=== PATIENT | female | born 1955 | race Caucasian/White ===

== ENCOUNTER → 2019-05-05 10:19 | Outpatient (CLI) | payer BC, SELFPAY ==
--- NOTE | ~2019-05-05 | MR_ITS ---
EXAMINATION: MR cervical spine wo con DATE: 05/05/2019 10:57 INDICATION: Neck pain. Other symptoms and signs involving the musculoskeletal system. TECHNIQUE: Magnetic resonance imaging (MRI) of the cervical spine was performed without intravenous c ontrast. Sequences included sagittal T2-weighted FSE, sagittal STIR FSE, sagittal T1-weighted FSE, ax ial MERGE, and axial T2-weighted FSE. COMPARISON: Cervical spine radiographs 07/05/2017 FINDINGS: There is kyphosis of cervical spine. There is 3 mm retrolisthesis of C4 on C5 and 2 mm retr olisthesis of C5 on C6. Vertebral body heights are normal. There is severely decreased disc height at C4-C5 and C5-C6. The spinal cord signal intensity is normal. The following disc levels are specifica lly discussed: C2-C3: The disc does not extend beyond the endplate margin. There is no uncovertebral joint osteoarth ritis. There is mild bilateral facet joint osteoarthritis. There is no neural foraminal stenosis. The re is no central canal stenosis. C3-C4: The disc is bulging. There is mild left uncovertebral joint osteoarthritis. There is mild bila teral facet joint osteoarthritis. There is no neural foraminal stenosis. There is mild central canal stenosis. C4-C5: The disc is bulging. There is severe bilateral uncovertebral joint osteoarthritis. There is mi ld bilateral facet joint osteoarthritis. There is moderate bilateral neural foraminal stenosis. There is moderate central canal stenosis with ventral and dorsal indentation of the spinal cord. C5-C6: The disc is bulging. There is severe bilateral uncovertebral joint osteoarthritis. There is no facet joint osteoarthritis. There is moderate bilateral neural foraminal stenosis. There is mild cash tral canal stenosis. C6-C7: The disc does not extend beyond the endplate margin. There is mild bilateral uncovertebral karel nt osteoarthritis. There is moderate bilateral facet joint osteoarthritis. There is mild bilateral ne ural foraminal stenosis. There is no central canal stenosis. C7-T1: The disc does not extend beyond the endplate margin. There is no uncovertebral joint osteoarth ritis. There is mild bilateral facet joint osteoarthritis. There is no neural foraminal stenosis. The re is no central canal stenosis. IMPRESSION: 1. Severe cervical spondylosis. Reviewed, dictated and finalized at location A. KILN OPERATOR
== END ==
PROVIDERS: PCP Family Medicine; Visit Provider Family Medicine
DX: R29.898 Other symptoms and signs involving the musculoskeletal system (principal); M47.892 Other spondylosis, cervical region
CPT/HCPCS: 72141

== ENCOUNTER 2020-01-01 08:58 | Outpatient (CLI) | payer BC, SELFPAY ==
[2020-01-01 09:37] LABS: Alanine Aminotransferase 22 U/L (4-35); Albumin Level 3.8 g/dL (3.5-5.1); Alkaline Phosphatase 97 U/L (38-126); Anion Gap 6 mmol/L (8-16); Aspartate Amino Transferase 20 U/L (14-36); Bilirubin,Total 0.4 mg/dL (0.2-1.3); Blood Urea Nitrogen 15 mg/dL (7-17); Calcium 9.1 mg/dL (8.4-10.2); Carbon Dioxide 31 mmol/L (22-30); Chloride 105 mmol/L (98-107); Cholesterol 205 mg/dL (0-200); Estimated Glomerular Filt Rate > 60; Glucose 107 mg/dL (65-105); HDL Direct 31 mg/dL; Potassium 4.2 mmol/L (3.4-5.0); Sodium 142 mmol/L (137-145); Triglycerides 136 mg/dL (<150)
[2020-01-01 09:43] LABS: Hemoglobin A1C 5.9 % (<5.7)
[2020-01-01 09:48] LABS: LDL Cholesterol Direct 159 mg/dL
== END 2020-01-01 08:59 | disposition home or self-care (01) ==
PROVIDERS: PCP Family Medicine; Visit Provider Family Medicine
DX: R53.83 Other fatigue (principal); E11.9 Type 2 diabetes mellitus without complications; E78.2 Mixed hyperlipidemia; E03.9 Hypothyroidism, unspecified
CPT/HCPCS: 36415; 80053; 80061; 83036; 84443

== ENCOUNTER 2020-01-22 00:49 | Outpatient (CLI) | payer BC, SELFPAY ==
[2020-01-22 16:30] LABS: SARS-CoV-2 RNA PCR Negative
== END 2020-01-22 00:50 | disposition home or self-care (01) ==
LOC: ANHCOVIDDT 00:49
PROVIDERS: PCP Family Medicine; Visit Provider Internal Medicine Gastroenterology
DX: Z01.812 Encounter for preprocedural laboratory examination (principal); Z20.828 Contact with and (suspected) exposure to other viral communicable diseases
CPT/HCPCS: 87635; C9803; U0003

== ENCOUNTER 2020-01-24 00:52 | Day surgery (SDC) | payer BC, SELFPAY ==
[2020-01-17 13:15] VITALS: BMI 48.6
--- NOTE | 2020-01-17 14:35 | SUR.PREOP ---
pt called with info on upcoming colonoscopy. pt asked if her could accompany her for the procedure. made her aware that due to covid, strict visitor policy is in place and currently only allowing family member/visitors for specific circumstances that would help facilitate pt care. pt states she gets very anxious. reassured her regarding procedure, let her know that could wait in parking lot and be available if needed. she voiced understanding. kelly styles rn aware of pt request.
[2020-01-24 06:28] VITALS: BP 135/68; PULSE 79; RESP 23; O2SAT 98; BMI 47.7
[2020-01-24] MEDS: LACTATED RINGERS 1,000 ML 150 ML IV CONT (06:36)
--- NOTE | 2020-01-24 07:13 | WPDANESEPPF ---
Anes - Initial Pre Proc Eval Procedure: Operation Date: 01/24/20 08:00 Proposed Procedures p Screening Colonoscopy - Noam Crawford MD Date/Time: 01/24/20 07:13 Surgeon: Noam Crawford MD Pre Op Diagnosis: Hx Colon Polyps Patient Data Age: 64 Gender: F Height: 1.7 m Weight: 138.4 kg Last Vital Signs Pulse 79 01/24/20 06:28 Resp 23 H 01/24/20 06:28 BP 135/68 01/24/20 06:28 Pulse Ox 98 01/24/20 06:28 Allergies Allergy/AdvReac Type Severity Reaction Status Date / Time cephalexin Allergy Unknown Unknown Verified 01/24/20 06:26 codeine Allergy Unknown Unknown Verified 01/24/20 06:26 latex Allergy Unknown Unknown Verified 01/24/20 06:26 Penicillins Allergy Unknown Unknown Verified 01/24/20 06:26 aspirin AdvReac Mild Unknown Verified 01/24/20 06:26 Home Medications Medication Instructions Recorded Confirmed Type cyclobenzaprine 10 mg PO TID PRN #14 tablet 03/29/19 01/17/20 Rx diclofenac sodium 100 mg 100 mg PO DAILY #90 tablet 11/16/19 01/17/20 Rx tablet,extended release 24 hr pantoprazole 40 mg tablet,delayed 40 mg PO QAM #90 tablet 12/27/19 01/17/20 Rx release gabapentin 600 mg tablet 600 mg PO TID #240 tablet 01/23/20 Rx levothyroxine 100 mcg tablet 100 mcg PO DAILY #90 tablet 01/23/20 Rx Patient hx anesthesia problems: none Family hx anesthesia problems: none PMFSH Past Medical History Medical History (Updated 10/12/19 @ 22:28 by Peggy Higgins MD) BMI 45.0-49.9, adult Fibromyalgia Hypothyroidism Mixed hyperlipidemia Rheumatoid factor positive 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 Type 2 diabetes mellitus without complication, without long-term current use of insulin Vitamin D deficiency Surgical History Surgical History (Updated 01/24/20 @ 07:18 by Noam Crawford MD) History of total hysterectomy with bilateral salpingo-oophorectomy (BSO) Status post section Status post tonsillectomy and adenoidectomy Family History Family History Mother Diabetes mellitus Hypertension Family history of cardiovascular disease Grandparent Carcinoma of colon Family history of malignant neoplasm of esophagus Family history of malignant neoplasm of breast Father Hypertension Family history of cardiovascular disease Sibling Carcinoma of colon Social History Social History Smoking status: Former smoker Tobacco type: cigarettes Second hand tobacco smoke exposure: No Alcohol intake: never Substance use type: does not use Living arrangements: with family Gender identity (if verbalized by the patient): Female Spiritual care concerns: No Anes - Eval Final PreProcedure Day of Procedure 01/24/20 07:13 Patient weight: obese Heart: regular rate and rhythm Lungs: clear to auscultation and normal air movement Airway: Mallampati scale class II Neurological: alert and oriented Last oral intake: >/= 8 hours ASA classification: III Emergent: no Anesthetic plan: proceed Anesthesia type and monitoring: general GIVS Informed Consent: The patient's anesthetic plan and its attendant risks and benefits were discussed with the patient/family/POA. Questions were solicited and answers provided to the satisfaction of the patient/family/POA.
--- NOTE | 2020-01-24 07:14 | PM.HPGS ---
History of Present Illness History of Present Illness Consent: Risks, benefits, and alternatives have been discussed and questions answered. Patient agrees to proceed with procedure. Chief complaint: Hx Colon Polyps Narrative: Maria Eugenia Bridges is a 64 year old W female referred for screening colonoscopy secondary history of multiple colonic polyps removed 2 years ago and several these were serrated adenomas removed in piecemeal fashion. There is also family history of colon cancer in her sister diagnosed at 30's. No interval changes in patient's health. 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 Type 2 diabetes mellitus without complication, without long-term current use of insulin Vitamin D deficiency Surgical History Surgical History (Updated 01/24/20 @ 07:18 by Noam Crawford MD) History of total hysterectomy with bilateral salpingo-oophorectomy (BSO) Status post section Status post tonsillectomy and adenoidectomy Family History Family History Mother Diabetes mellitus Hypertension Family history of cardiovascular disease Grandparent Carcinoma of colon Family history of malignant neoplasm of esophagus Family history of malignant neoplasm of breast Father Hypertension Family history of cardiovascular disease Sibling Carcinoma of colon Social History Social History Smoking status: Former smoker Tobacco type: cigarettes Second hand tobacco smoke exposure: No Alcohol intake: never Substance use type: does not use Living arrangements: with family Gender identity (if verbalized by the patient): Female Spiritual care concerns: No Meds Home Medications and Allergies Home Medications Medication Instructions Recorded Confirmed Type cyclobenzaprine 10 mg PO TID PRN #14 tablet 03/29/19 01/17/20 Rx diclofenac sodium 100 mg 100 mg PO DAILY #90 tablet 11/16/19 01/17/20 Rx tablet,extended release 24 hr pantoprazole 40 mg tablet,delayed 40 mg PO QAM #90 tablet 12/27/19 01/17/20 Rx release gabapentin 600 mg tablet 600 mg PO TID #240 tablet 01/23/20 Rx levothyroxine 100 mcg tablet 100 mcg PO DAILY #90 tablet 01/23/20 Rx Allergies Allergy/AdvReac Type Severity Reaction Status Date / Time cephalexin Allergy Unknown Unknown Verified 01/24/20 06:26 codeine Allergy Unknown Unknown Verified 01/24/20 06:26 latex Allergy Unknown Unknown Verified 01/24/20 06:26 Penicillins Allergy Unknown Unknown Verified 01/24/20 06:26 aspirin AdvReac Mild Unknown Verified 01/24/20 06:26 Vital Signs Vital Signs - 24 hr 01/24/20 06:28 Pulse Rate 79 Respiratory Rate 23 H Blood Pressure 135/68 Pulse Oximetry 98 Exam Const: Orientation/consciousness: patient oriented x3 Resp: Auscultation: clear to auscultation bilaterally Cardio: Rate: regular rate Rhythm: regular rhythm Heart sounds: no murmurs GI: GI Palp: Yes Soft to palpation, No Tenderness to palpation present (GI), Yes No hepatosplenomegaly present and No Palpable mass present Auscultation: normal bowel sounds Neuro: General: patient oriented x3 and no focal motor deficits Extrem: General: no pedal edema Assessment and Plan Additional Plan screening colonoscopy in high risk patient with a history of serrated adenomas and family history of colon cancer
[2020-01-24 08:25] VITALS: BP 109/55; PULSE 72; RESP 20; O2SAT 97
[2020-01-24 08:35] VITALS: BP 114/58; PULSE 68; RESP 19; O2SAT 97
[2020-01-24 08:45] VITALS: BP 121/56; PULSE 67; RESP 18; O2SAT 96
== END 2020-01-24 08:59 | disposition home or self-care (01) ==
PROVIDERS: PCP Family Medicine; Visit Provider Internal Medicine Gastroenterology
PROC: 0DJD8ZZ Inspection of Lower Intestinal Tract, Via Natural or Artificial Opening Endoscopic (ICD-10-PCS; CPT 45378; principal; 2020-01-24 08:00)
DX: Z09 Encounter for follow-up examination after completed treatment for conditions other than malignant neoplasm (principal); K63.5 Polyp of colon; D17.5 Benign lipomatous neoplasm of intra-abdominal organs; K57.30 Diverticulosis of large intestine without perforation or abscess without bleeding; Z80.0 Family history of malignant neoplasm of digestive organs; E78.2 Mixed hyperlipidemia; E03.9 Hypothyroidism, unspecified; M79.7 Fibromyalgia; M06.9 Rheumatoid arthritis, unspecified; M47.812 Spondylosis without myelopathy or radiculopathy, cervical region; M47.814 Spondylosis without myelopathy or radiculopathy, thoracic region; E11.9 Type 2 diabetes mellitus without complications; E55.9 Vitamin D deficiency, unspecified; Z87.891 Personal history of nicotine dependence; E66.01 Morbid (severe) obesity due to excess calories; Z68.42 Body mass index [BMI] 45.0-49.9, adult
CPT/HCPCS: 45380; 88305; J2704; J7120

== ENCOUNTER 2020-03-19 12:29 | Outpatient (CLI) | payer BC, SELFPAY ==
--- NOTE | ~2020-03-19 | XR_ITS ---
EXAMINATION: XR thoracic spine 3V EXAM DATE: 03/19/2020 12:56 INDICATION: M54.14 - Radiculopathy, thoracic region. TECHNIQUE: Frontal and lateral projections of the thoracic spine as well as lateral swimmers projecti on of the upper thoracic spine for interpretation. Comparison is made to prior examination from 018. FINDINGS: Moderate to large sized mid lower thoracic disc disease and endplate osteophytes. The pedro tebral bodies are aligned in the AP dimension. Paraspinal soft tissue is unremarkable. There are no b rolly erosions identified. IMPRESSION: 1. Mild to moderate thoracic spondylosis. Reviewed, dictated and finalized at location B. DOG VENDOR
== END 2020-03-19 12:30 | disposition home or self-care (01) ==
PROVIDERS: PCP Family Medicine; Visit Provider Family Medicine
DX: M47.24 Other spondylosis with radiculopathy, thoracic region (principal)
CPT/HCPCS: 72072

== ENCOUNTER 2020-07-26 13:24 | Outpatient (CLI) | payer BC, SELFPAY ==
--- NOTE | ~2020-07-26 | US_ITS ---
EXAMINATION: US carotid duplex BI DATE: 07/26/2020 14:42 INDICATION: Transient cerebral ischemic attack TECHNIQUE: Grayscale, color Doppler, and pulsed Doppler images of the cervical carotid arteries were obtained. The degree of vessel stenosis is placed in one of the following categories: normal, <50%, 5 0-69%, >=70% but less than near-occlusion, near-occlusion, or total occlusion. Note that percent sten osis relative to normal distal artery lumen diameter is indirectly measured from velocity measurement s as described by Herber, et al. Radiology 2003; 229:340-346. Notes: Normal: Peak systolic velocity <125 centimeters/sec and no plaque <50%. Peak systolic velocity <125 ( EDV <40; ICA/CCA PSV ratio <2.0; used these factors only a tandem lesions or low cardiac output or co ntralateral disease) 50-69 %: PSV 125-230 (EDV 40-100; ratio 2-4) >= 70% but less than near occlusion: PSV greater than 230 (EDV > 100; ratio> 4.0) Near Occlusion: PSV that is variable; markedly narrowed lumen Occlusion: Absent flow on color/spectral Doppler and no lumen on lutz scale. COMPARISON: None. FINDINGS: RIGHT: The right common carotid artery (CCA) peak systolic velocity (PSV) is 83 cm/s. The right internal car otid artery (ICA) PSV is 55 cm/s. The right ICA end-diastolic velocity (EDV) is 17 cm/s. The right IC A/CCA PSV ratio is 0.7. The external carotid artery (ECA) PSV is 134 cm/s. There is antegrade flow in the right vertebral artery. LEFT: The left CCA PSV is 85 cm/s. The left ICA PSV is 52 cm/s. The left ICA EDV is 14 cm/s. The left ICA/C CA PSV ratio is 0.7. The ECA PSV is 84 cm/s. There is antegrade flow in the left vertebral artery. IMPRESSION: 1. Less than 50% stenosis in the right internal carotid artery by sonographic criteria. 2. Less than 50% stenosis in the left internal carotid artery by sonographic criteria. Reviewed, dictated and finalized at location B. IMPRESSION: 1. Less than 50% stenosis in the right internal carotid artery by sonographic c sonu. 2. Less than 50% stenosis in the left internal carotid artery by sonographic ita munoz.
--- NOTE | ~2020-07-26 | MR_ITS ---
EXAMINATION: MR brain/brain stem wo/w con DATE: 07/26/2020 14:25 INDICATION: Transient cerebral ischemic attack. Right facial numbness. Right extremity weakness. TECHNIQUE: Magnetic resonance imaging (MRI) of the brain and brainstem was performed without and with 20 mL MultiHance intravenous contrast. Sequences included sagittal and axial T1-weighted FSE, axial diffusion-weighted FS EPI, axial T2*-weighted GRE, axial T2-weighted FLAIR Propeller, and axial T2-we ighted Propeller. Postcontrast sequences included axial and coronal T1-weighted FSE. Apparent diffusi on coefficient (ADC) maps were created. COMPARISON: Head CT 06/16/2017 FINDINGS: There is no intracranial hemorrhage or abnormal intracranial mass lesion. There are scatter ed areas of nonspecific increased T2-weighted signal intensity in the cerebral white matter, which is within normal limits for the patient's age. In the posterior left frontal lobe, there is an 11 x 4 x 10 mm enhancing cortical lesion. No associated vasogenic edema. The ventricles are normal in size. T here is mucosal thickening in the paranasal sinuses. The orbits are normal. The mastoid air cells are normal. IMPRESSION: 1. Enhancing cortical lesion in posterior left frontal lobe, likely a subacute infarct. Consider brai n MRI without and with contrast in 3 months to exclude malignancy. Reviewed, dictated and finalized at location A. IMPRESSION: 1. Enhancing cortical lesion in posterior left frontal lobe, likely a subacute infarct. Consider brain MRI without and with contrast in 3 months to exclude ma lignancy.
[2020-07-26 13:57] LABS: Estimated Glomerular Filt Rate > 60
== END 2020-07-26 13:25 | disposition home or self-care (01) ==
PROVIDERS: PCP Family Medicine; Visit Provider Family Medicine
DX: G45.9 Transient cerebral ischemic attack, unspecified (principal)
CPT/HCPCS: 70553; 93880; A9577

== ENCOUNTER 2020-08-07 10:18 | Outpatient (CLI) | payer BC, SELFPAY ==
[2020-08-07 10:57] LABS: Chloride 105 mmol/L (98-107)
[2020-08-07 11:04] LABS: Anion Gap 2 mmol/L (8-16); Blood Urea Nitrogen 14 mg/dL (7-17); Calcium 9.6 mg/dL (8.4-10.2); Carbon Dioxide 33 mmol/L (22-30); Estimated Glomerular Filt Rate > 60; Glucose 106 mg/dL (65-105); Potassium 4.2 mmol/L (3.4-5.0); Sodium 140 mmol/L (137-145)
[2020-08-07 11:08] LABS: NT Pro B Type Natriuretic Pept 42 pg/mL (5-100)
== END 2020-08-07 10:19 | disposition home or self-care (01) ==
LOC: ANHLAB 10:26
PROVIDERS: PCP Family Medicine
DX: R06.02 Shortness of breath (principal); E03.9 Hypothyroidism, unspecified; I63.9 Cerebral infarction, unspecified; F17.200 Nicotine dependence, unspecified, uncomplicated; M79.7 Fibromyalgia; I10 Essential (primary) hypertension; R00.2 Palpitations; G47.33 Obstructive sleep apnea (adult) (pediatric); E66.9 Obesity, unspecified; F41.1 Generalized anxiety disorder
CPT/HCPCS: 36415; 80048; 83880

== ENCOUNTER → 2020-09-02 06:36 | Outpatient (CLI) | payer BC, SELFPAY ==
[2020-09-02 21:53] LABS: SARS-CoV-2 RNA PCR Negative
== END ==
PROVIDERS: PCP Family Medicine
DX: R68.89 Other general symptoms and signs (principal); Z20.822 Contact with and (suspected) exposure to COVID-19
CPT/HCPCS: C9803; U0003; U0005

== ENCOUNTER 2020-10-29 08:30 | Outpatient (CLI) | payer BC, SELFPAY ==
--- NOTE | ~2020-10-29 | MR_ITS ---
EXAMINATION: MR brain/brain stem wo/w con DATE: 10/29/2020 11:49 INDICATION: Lesion of left frontal lobe of the brain. Frontal head pressure. TECHNIQUE: Magnetic resonance imaging (MRI) of the brain and brainstem was performed without and with 20 mL MultiHance intravenous contrast. Sequences included sagittal and axial T1-weighted FSE, axial diffusion-weighted FS EPI, axial T2*-weighted GRE, axial T2-weighted FLAIR Propeller, and axial T2-we ighted Propeller. Postcontrast sequences included axial, sagittal, and coronal T1-weighted FSE. Appar ent diffusion coefficient (ADC) maps were created. COMPARISON: Brain MRI 07/26/2020, cervical spine MRI 05/05/2019, head CT 06/16/2017 FINDINGS: There is a 1.7 x 1.0 x 0.7 cm mass of increased T1-weighted signal intensity in the pituita ry, consistent with a Rathke cleft cyst. There is a small old infarct in posterior left frontal lobe. There are scattered areas of nonspecific increased T2-weighted signal intensity in the cerebral whit e matter, which is within normal limits for the patient's age. There is no acute ischemic infarct. Th e ventricles are normal in size. There is mild mucosal thickening in the ethmoid sinuses. The orbits are normal. The mastoid air cells are normal. IMPRESSION: 1. 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 2. 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 Reviewed, dictated and finalized at location A. IMPRESSION: 1. 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 2. 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
--- NOTE | 2020-10-29 08:44 | ECHO_ITS ---
Patient Info Name: Maria Eugenia Bridges Age: 64 years : 1955 Gender: Female Ht: 67 in Wt: 314 lbs BSA: 2.68 m2 HR: 71 bpm BP: 155 / 81 mmHg Exam Date: 10/29/2020 9:03 AM Exam Location: [facility] Patient Status: Outpatient Admit Date: 10/29/2020 Staff Ordering Physician: Peggy Hgigins MD Material Checker: Jose David Moses, JUAN, RT Attending Provider: Peggy Higgins MD Referring Physician: Ronaldo YIP; Exam Type: CA echo doppler color flow Study Info Indications G45.8 - Other transient cerebral ischemic attacks and related syndromes Complete two-dimensional, color flow and Doppler transthoracic echocardiogram is performed. Summary 1. Complete two-dimensional, color flow and Doppler transthoracic echocardiogram is performed. 2. Left ventricular chamber dimension is normal. 3. Left ventricular systolic function is normal, estimated at 55-60%. 4. There is mildly increased left ventricular wall thickness. 5. The left ventricular diastolic function is grade I diastolic dysfunction. 6. E/e' 11 is mildly elevated. 7. There is moderate aortic valve sclerosis. 8. There is mild mitral valve regurgitation. 9. There is trace pulmonic regurgitation. Left Ventricle E/e' 11 is mildly elevated. Left ventricular chamber dimension is normal. Left ventricular systolic function is normal, estimated at 55-60%. There is mildly increased left ventricular wall thickness. The left ventricular diastolic function is grade I diastolic dysfunction. Right Ventricle Right ventricular systolic function is normal and with normal TAPSE 2.6 cm. Right ventricular chamber dimension is normal. Left Atria Left atrial chamber dimension is normal. Right Atria Right atrial chamber dimension is normal. Aortic Valve The aortic valve is trileaflet. There is moderate aortic valve sclerosis. There is no aortic valve stenosis. There is no aortic valve regurgitation. Pulmonic Valve There is trace pulmonic regurgitation. Mitral Valve There is no mitral valve stenosis. There is mild mitral valve regurgitation. Tricuspid Valve There is no tricuspid valve regurgitation. Pericardium/Pleural There is no pericardial effusion. Inferior Vena Cava Normal inferior vena cava with >50% collapse upon inspiration consistent with normal right atrial pressure, 5 mmHg. Aorta The aortic root size at the sinus of Valsalva is normal. Left Ventricular Outflow Tract Name Value Normal LVOT 2D LVOT Diameter 2.1 cm LVOT Doppler LVOT Peak Gradient 8 mmHg LVOT Mean Gradient 4 mmHg LVOT VTI 28 cm LVOT VTI/AV VTI Ratio 0.7 LVOT Stroke Volume 100 ml LVOT CO 6.9 l/min LVOT CI 2.6 l/min/m2 Mitral Valve Name Value Normal MV Doppler
--- NOTE | 2020-10-29 10:06 | PCCARD ---
PT refused Definity. Ambrosio
[2020-10-29 11:27] LABS: Estimated Glomerular Filt Rate > 60
== END 2020-10-29 08:31 | disposition home or self-care (01) ==
PROVIDERS: PCP Family Medicine; Referring Provider Family Medicine; Visit Provider Family Medicine
DX: G45.8 Other transient cerebral ischemic attacks and related syndromes (principal)
CPT/HCPCS: 70553; 93306; A9577

== ENCOUNTER 2020-11-06 12:43 | Outpatient (CLI) | payer BC, SELFPAY ==
--- NOTE | ~2020-11-06 | MR_ITS ---
EXAMINATION: MRA brain wo con DATE: 11/06/2020 13:43 INDICATION: Left frontal lobe infarct. Pituitary mass. TECHNIQUE: Magnetic resonance angiography (MRA) of the brain was performed without intravenous contra st with T1-weighted SPGR by the 3D [id number] technique. Maximum intensity projection 3D-reconstr uctions were obtained. COMPARISON: Brain MRI 10/29/2020 FINDINGS: There is no significant stenosis of basilar artery or the posterior cerebral arteries. Right posterio r communicating artery is normal. There is no significant stenosis of the intracranial internal carot id arteries or anterior or middle cerebral arteries. Anterior communicating artery is normal. 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 There is a 1.8 cm mass of increased T1-weighted signal intensity in the pituitary. IMPRESSION: 1. 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 2. 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 Reviewed, dictated and finalized at location A. IMPRESSION: 1. 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 2. 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
== END 2020-11-06 12:44 | disposition home or self-care (01) ==
PROVIDERS: PCP Family Medicine
DX: I63.412 Cerebral infarction due to embolism of left middle cerebral artery (principal); I67.1 Cerebral aneurysm, nonruptured; E23.7 Disorder of pituitary gland, unspecified
CPT/HCPCS: 70544

== ENCOUNTER 2021-03-15 12:34 | Inpatient (IN) | payer BC, SELFPAY ==
[2021-03-15] VITALS (32 sets, daily range): BP systolic 107–157; BP diastolic 50–95; PULSE 72–93; RESP 16–34; TEMP 36.6–37.3; O2SAT 84–97; BMI 48.2
--- NOTE | ~2021-03-15 | XR_ITS ---
EXAMINATION: XR chest 1V portable DATE: 03/31/2021 09:10 INDICATION: Respiratory failure. COVID pneumonia. TECHNIQUE: frontal view of the chest was obtained. COMPARISON: Chest radiograph dated 03/30/2021 FINDINGS: Endotracheal tube tip 7.0 cm above the franchesca. Nasogastric tube extends below the left hemidiaphragm with distal tip collimated off the study. Right internal jugular central venous catheter with distal tip at the midsuperior vena cava. Persistent diffuse bilateral airspace opacities with air bronchograms left slightly worse than right. No pneumothorax or definitive pleural effusion. The cardiomediastinal silhouette is largely obscured . IMPRESSION: 1. Endotracheal tube tip 7.0 cm above the franchesca. Recommend advancement by 5 cm. 2. Persistent extensive bilateral lung disease consistent with COVID pneumonia. Reviewed, dictated and finalized at location B. GRADER IMPRESSION: 1. Endotracheal tube tip 7.0 cm above the franchesca. Recommend advancement by 5 cm . 2. Persistent extensive bilateral lung disease consistent with COVID pneumonia.
--- NOTE | ~2021-03-15 | XR_ITS ---
XR abdomen NG/feed tube insert DATE: 03/22/2021 09:38 INDICATION: Orogastric tube placement TECHNIQUE: Portable supine AP view COMPARISON: None FINDINGS: Orogastric tube tip is situated in the lower body of the stomach. ET tube is in satisfactory position. Right internal jugular central venous catheter tip is situated i n the superior vena cava near the superior cavoatrial junction. There are diffuse patchy bilateral pu lmonary infiltrates including air bronchograms in the left lower lobe. Heart size appears normal. IMPRESSION: Orogastric tube in stomach Reviewed, dictated and finalized at Location A. Reviewed, dictated and finalized at location A. LIFE SCIENCE PROFESSOR IMPRESSION: Orogastric tube in stomach
--- NOTE | ~2021-03-15 | XR_ITS ---
XR chest 1V portable DATE: 04/03/2021 09:34 INDICATION: Respiratory failure, Covid pneumonia TECHNIQUE: Portal AP chest on 04/03/2021 at 0910 hours COMPARISON: 04/02/2021 portable AP chest at 1002 hours FINDINGS: ET tube approximately 5.3 cm above franchesca. NG tube in stomach. Right internal jugular centr al venous catheter in superior vena cava. There is severe patchy bilateral consolidating pulmonary infiltrates with air bronchograms particular ly in the left upper, mid and lower lung zones and right lower lung. IMPRESSION: No significant change of extensive bilateral consolidating infiltrates since 04/02/2021 Reviewed, dictated and finalized at location A. [employer] PRODUCTION TEAM MEMBER IMPRESSION: No significant change of extensive bilateral consolidating infiltra talia since 04/02/2021
--- NOTE | ~2021-03-15 | XR_ITS ---
EXAMINATION: XR chest 1V portable EXAM DATE: 03/24/2021 08:59 INDICATION: Acute hypoxic respiratory failure, COVID pneumonia. TECHNIQUE: Portable AP frontal chest x-ray was obtained. Comparison is made to prior examination from 03/23/2021. FINDINGS: Endotracheal tube tip is 5-6 centimeters above the franchesca. There is a nasogastric tube see n with tip collimated off the study, but below the left hemidiaphragm. There is a right-sided IJ cent ral venous line. Diffuse bilateral airspace disease consistent with COVID pneumonia unchanged. There are no sizable p leural effusions. There is no pneumothorax suspected. Cardiac silhouette difficult to evaluate. The bones and soft tissues are unremarkable. There is no significant interval change compared to prior exam. IMPRESSION: 1. Line and tube(s) in position. 2. Stable airspace disease and other findings as above. Reviewed, dictated and finalized at location B. IVING DOCK CHECKER
--- NOTE | ~2021-03-15 | XR_ITS ---
EXAMINATION: XR chest 1V portable EXAM DATE: 03/26/2021 07:40 INDICATION: Acute hypoxic respiratory failure, COVID pneumonia. TECHNIQUE: Portable AP frontal chest x-ray was obtained. Comparison is made to prior examination from 03/25/2021, 03/24. FINDINGS: Endotracheal tube tip is about 5 centimeters above the franchesca. There is a nasogastric tube seen with tip collimated off the study, but below the left hemidiaphragm. There is a right-sided IJ central venous line. Extensive bilateral airspace disease consistent with COVID pneumonia. There are no sizable pleural e ffusions. There is no pneumothorax suspected. Cardiac silhouette difficult to evaluate. The bone s and soft tissues are unremarkable. Mild progression in the airspace disease. IMPRESSION: 1. Line and tube(s) in position. 2. Extensive COVID pneumonia, mild progression. Reviewed, dictated and finalized at location A. SROOM INSTRUCTIONAL AIDE
--- NOTE | ~2021-03-15 | XR_ITS ---
EXAMINATION: XR chest 1V portable DATE: 04/02/2021 10:16 INDICATION: Respiratory failure. COVID-19 pneumonia. TECHNIQUE: A single frontal view of the chest was obtained. COMPARISON: Chest single view 04/01/2021 FINDINGS: There are airspace opacities throughout the lungs bilaterally. No pleural effusion or pneum othorax. The heart size is obscured. The endotracheal tube tip is 4.0 cm above the franchesca. A right in ternal jugular central venous catheter is seen with tip at the superior cavoatrial junction. The naso gastric tube tip is beyond the inferior margin of the radiograph, but at least to the stomach. IMPRESSION: 1. Stable severe diffuse lung disease, consistent with COVID-19 pneumonia versus acute respiratory di stress syndrome (ARDS). Reviewed, dictated and finalized at location A. KER IMPRESSION: 1. Stable severe diffuse lung disease, consistent with COVID-19 pneumonia versu s acute respiratory distress syndrome (ARDS).
--- NOTE | ~2021-03-15 | XR_ITS ---
XR chest ET placement DATE: 03/22/2021 09:37 INDICATION: Endotracheal tube placement TECHNIQUE: Portable AP chest on 03/22/2021 at 0919 hours COMPARISON: 03/22/2021 AP chest at 0815 hours FINDINGS: There is interval placement of an endotracheal tube in satisfactory position approximately 3 cm above franchesca. A nasogastric tube is present, the distal portion not included in this examination . Right internal jugular central venous catheter tip is situated at the upper right atrium. Diffuse bilateral pulmonary infiltrates. IMPRESSION: ET tube in satisfactory position NG tube Right internal jugular central venous catheter at upper right atrium; no pneumothorax Persistent diffuse bilateral pulmonary infiltrates Reviewed, dictated and finalized at Location A. Reviewed, dictated and finalized at location A. NESS CONTINUITY MANAGEMENT DIRECTOR IMPRESSION: ET tube in satisfactory position NG tube Right internal jugular central venous catheter at upper right atrium; no pneumo thorax Persistent diffuse bilateral pulmonary infiltrates
--- NOTE | ~2021-03-15 | US_ITS ---
EXAMINATION: US renal BI DATE: 03/24/2021 12:58 INDICATION: Acute kidney injury. TECHNIQUE: Multiple ultrasound grayscale images of the kidneys were obtained. COMPARISON: CT abdomen and pelvis 04/13/18 FINDINGS: The right kidney measures 10.2 x 5.8 x 7.4 cm. The left kidney measures 13.4 x 5.8 x 6.7 cm. The kidn eys demonstrate normal parenchymal echogenicity. There is no hydronephrosis. The bladder is not well visualized. IMPRESSION: 1. Normal kidney sizes. No hydronephrosis. Reviewed, dictated and finalized at location A. E BAR TEAM MEMBER
--- NOTE | ~2021-03-15 | XR_ITS ---
XR chest 1V portable DATE: 03/22/2021 08:32 INDICATION: Increased shortness of breath. Covid pneumonia. TECHNIQUE: Portable AP chest on 03/22/2021 at 0815 hours COMPARISON: 03/17/2021 AP chest FINDINGS: This is a limited single portable AP view of the chest with rotation of the patient. There is cardiomegaly and pulmonary vascular congestion. There are diffuse bilateral pulmonary infiltrates, greater in the mid and particularly lower lung zones. Differential diagnosis includes pulmonary wagner a as well as pneumonia. IMPRESSION: Increased congestive changes and bilateral infiltrates since 03/17/2021, likely due to wo rsening congestive changes and pulmonary edema. Pneumonia is not excluded. Reviewed, dictated and finalized at location A. CTOR OCCUPATIONAL IMPRESSION: Increased congestive changes and bilateral infiltrates since 2020, likely due to worsening congestive changes and pulmonary edema. Pneumonia is not excluded.
--- NOTE | ~2021-03-15 | XR_ITS ---
EXAMINATION: XR chest 1V portable DATE: 03/29/2021 09:24 INDICATION: Respiratory failure. COVID-19 pneumonia. TECHNIQUE: A single frontal view of the chest was obtained. COMPARISON: Chest single view 03/27/2021 FINDINGS: There are airspace opacities throughout the lungs bilaterally. No pleural effusion or pneum othorax. The heart size is normal. The endotracheal tube tip is 5.5 cm above the franchesca. A right inte rnal jugular central venous catheter is seen with tip in the superior vena cava. The nasogastric tube tip is beyond the inferior margin of the radiograph, but at least to the stomach. IMPRESSION: 1. Diffuse lung disease, likely stable given differences in technique, consistent with pneumonia vers us acute respiratory distress syndrome (ARDS). Reviewed, dictated and finalized at location A. CTOR [facility] IMPRESSION: 1. Diffuse lung disease, likely stable given differences in technique, consiste nt with pneumonia versus acute respiratory distress syndrome (ARDS).
--- NOTE | ~2021-03-15 | XR_ITS ---
EXAMINATION: XR chest 1V portable EXAM DATE: 03/30/2021 10:38 INDICATION: Respiratory failure, COVID pneumonia TECHNIQUE: Portable AP frontal chest x-ray was obtained. Comparison is made to prior examination from 03/29/2021. FINDINGS: Endotracheal tube, nasogastric tube are in position. There is a right IJ venous line also in position. Extensive bilateral airspace disease consistent with COVID pneumonia. There are no sizable pleural e ffusions. There is no pneumothorax suspected. The cardiomediastinal silhouette is prominent but m agnified on this AP technique. There is no significant interval change compared to prior exam. IMPRESSION: 1. Line and tube(s) in position. 2. Extensive COVID pneumonia unchanged. Reviewed, dictated and finalized at location A. ATING ROOM ORDERLY
--- NOTE | ~2021-03-15 | XR_ITS ---
XR chest 1V portable DATE: 03/21/2021 09:04 INDICATION: Covid pneumonia TECHNIQUE: Portable AP chest on 03/21/2021 at 0857 hours COMPARISON: 03/20/2021 portable AP chest at 1018 hours FINDINGS: There are patchy infiltrates in the mid and lower lung zones, right greater than left, rela tively stable since 03/20/2021. No pleural effusion or pneumothorax. Aortic arch calcification. IMPRESSION: Bilateral pulmonary infiltrates, stable since 03/20/2021 Reviewed, dictated and finalized at location A. ON STAMPER
--- NOTE | ~2021-03-15 | XR_ITS ---
XR chest 1V portable 03/18/2021 11:00 Indication: Pneumonia. Procedure: AP portable chest Comparison: Comparison to multiple prior studies sequentially, with oldest reviewed study dated 06/2016. Findings: There is improving diffuse bilateral airspace disease, particularly on the left. No signifi cant effusion or pneumothorax. Stable cardiomediastinal silhouette. Impression: 1: Bilateral airspace disease, consistent with pneumonia, with improvement since prior examination. Reviewed, dictated and finalized at location A. GRAPHIC DESIGNER Impression: 1: Bilateral airspace disease, consistent with pneumonia, with improvement sinc e prior examination.
--- NOTE | ~2021-03-15 | XR_ITS ---
EXAMINATION: XR chest 1V portable DATE: 03/25/2021 08:51 INDICATION: Acute hypoxemic respiratory failure. COVID pneumonia. TECHNIQUE: frontal view of the chest was obtained. COMPARISON: Chest radiograph dated 03/24/2021 FINDINGS: Endotracheal tube tip 5.2 cm above the franchesca. Nasogastric tube extends below the left hemidiaphragm with distal tip collimated off the study. Right internal jugular central venous catheter with distal tip in the midsuperior vena cava. Hazy airspace opacities throughout both lungs without significant interval change accounting for some increased rightward rotation of the patient. No pneumothorax or definitive pleural effusion. The car diac silhouette is largely obscured but does not appear enlarged. IMPRESSION: 1. No significant change in diffuse bilateral airspace opacities consistent with pneumonia. Reviewed, dictated and finalized at location A. CHOOL HEAD TEACHER IMPRESSION: 1. No significant change in diffuse bilateral airspace opacities consistent wit h pneumonia.
--- NOTE | ~2021-03-15 | XR_ITS ---
EXAMINATION: XR chest 1V portable DATE: 03/16/2021 11:56 INDICATION: Hypoxia. TECHNIQUE: A single frontal view of the chest was obtained. COMPARISON: Chest single view 03/15/2021 FINDINGS: There are patchy airspace opacities throughout the lungs bilaterally. No pleural effusion o r pneumothorax. The heart size is normal. IMPRESSION: 1. Stable diffuse lung disease, consistent with COVID-19 pneumonia. Reviewed, dictated and finalized at location A. MANAGER
--- NOTE | ~2021-03-15 | XR_ITS ---
EXAMINATION: XR chest 1V portable EXAM DATE: 03/27/2021 07:58 INDICATION: Acute hypoxic respiratory failure, COVID pneumonia. TECHNIQUE: Portable AP frontal chest x-ray was obtained. Comparison is made to prior examination from 03/26/2021. FINDINGS: Endotracheal tube tip is about 5 centimeters above the franchesca. There is a nasogastric tub e seen with tip collimated off the study, but below the left hemidiaphragm. There is a right-sided IJ central venous line. Extensive bilateral airspace disease consistent with COVID pneumonia. There are no sizable pleural e ffusions. There is no pneumothorax suspected. Cardiac silhouette difficult to evaluate. The bone s and soft tissues are unremarkable. There is no significant interval change. IMPRESSION: 1. Line and tube(s) in position. 2. Extensive COVID pneumonia. Reviewed, dictated and finalized at location A. AINABILITY COACH
--- NOTE | ~2021-03-15 | CT_ITS ---
EXAMINATION: CTA chest PE protocol DATE: 03/15/2021 15:31 ENTEROSTOMAL THERAPY NURSE INDICATION: Positive d-dimer. TECHNIQUE: Computed tomographic angiography (CTA) of the chest was performed with 100 mL Omnipaque-35 0 intravenous contrast. The dose-length product was 1110.73 mGy-cm. Maximum intensity projection 3D-r econstructions of the aorta and other arteries were constructed by the technologist on a separate wor kstation. COMPARISON: Chest dated 03/15/2021. FINDINGS: [The is technically limited for evaluation of subsegmental pulmonary arteries. No large cash tral pulmonary embolism. There is atherosclerosis of the aorta and coronary arteries. Heart size is n ormal. No significant pleural or pericardial effusion. There is extensive patchy groundglass opacific ation throughout both lungs, consistent with pneumonia. IMPRESSION: 1. Extensive bilateral groundglass opacification in both lungs, consistent with widespread pneumonia. 2: No large central pulmonary embolism. Limited evaluation of peripheral pulmonary arteries. Moderate thoracic spondylosis. Reviewed, dictated and finalized at location A. ROSTOMAL THERAPY NURSE IMPRESSION: 1. Extensive bilateral groundglass opacification in both lungs, consistent with widespread pneumonia. 2: No large central pulmonary embolism. Limited evaluation of peripheral pulmon arsenio arteries. Moderate thoracic spondylosis.
--- NOTE | ~2021-03-15 | XR_ITS ---
EXAMINATION: XR chest 1V portable DATE: 03/20/2021 10:22 INDICATION: Pneumonia. TECHNIQUE: A single frontal view of the chest was obtained. COMPARISON: Chest single view 03/18/2021, chest CT 03/15/2021 FINDINGS: There is volume loss of right hemithorax. There are airspace opacities in all lung zones bi laterally, right worse than left. No pleural effusion or pneumothorax. The heart size is normal. IMPRESSION: 1. Diffuse lung disease with worsening on the right, consistent with COVID-19 pneumonia. . Reviewed, dictated and finalized at location B. K HELPER IMPRESSION: 1. Diffuse lung disease with worsening on the right, consistent with COVID-19 p neumonia. .
--- NOTE | ~2021-03-15 | XR_ITS ---
XR chest 1V portable 03/17/2021 09:10 Indication: Covid pneumonia Procedure: AP portable chest Comparison: 03/16/2021 Findings: There is diffuse bilateral airspace disease, consistent with pneumonia. No pleural effusion or pneumothorax. No acute osseous abnormality. Impression: 1: Persistent diffuse bilateral airspace disease, compatible with pneumonia. Reviewed, dictated and finalized at location A. AL TUBE WINDER Impression: 1: Persistent diffuse bilateral airspace disease, compatible with pneumonia.
--- NOTE | ~2021-03-15 | XR_ITS ---
XR chest 1V portable DATE: 03/23/2021 10:35 INDICATION: Acute hypoxic respiratory failure. Covid pneumonia. TECHNIQUE: Portable upright AP chest on 03/23/2021 at 1018 hours COMPARISON: 03/22/2021 portable AP chest at 0919 hours FINDINGS: There are diffuse bilateral pulmonary infiltrates, with moderate improvement on the right s ara 03/22/2021. Normal heart size. No pleural effusion or pneumothorax is evident ET tube is 5.5 cm above franchesca. NG tube is noted passing toward the stomach, distal portion not inclu ded. Right internal jugular central venous catheter overlying superior vena cava. IMPRESSION: Diffuse bilateral pulmonary infiltrates, moderately improved on the right since 1 Reviewed, dictated and finalized at location A. ULAR OFFICER IMPRESSION: Diffuse bilateral pulmonary infiltrates, moderately improved on the right since 03/22/2021
--- NOTE | ~2021-03-15 | XR_ITS ---
EXAMINATION: XR chest 1V portable DATE: 04/01/2021 09:44 INDICATION: Respiratory failure. COVID-19 pneumonia. TECHNIQUE: A single frontal view of the chest was obtained. COMPARISON: Chest single view 03/31/2021 FINDINGS: There are airspace opacities in all lung zones bilaterally. No pleural effusion or pneumoth orax. The heart size is normal. The endotracheal tube tip is 4.0 cm above the franchesca. A right interna l jugular central venous catheter is seen with tip in the superior vena cava. IMPRESSION: 1. Stable severe diffuse lung disease, consistent with COVID-19 pneumonia versus acute respiratory di stress syndrome (ARDS). Reviewed, dictated and finalized at location A. SPORTER DRIVER IMPRESSION: 1. Stable severe diffuse lung disease, consistent with COVID-19 pneumonia versu s acute respiratory distress syndrome (ARDS).
--- NOTE | ~2021-03-15 | XR_ITS ---
XR chest 1V portable 03/15/2021 14:15 Indication: Covid Infection Procedure: AP portable chest Comparison: 12/30/2016 Findings: There is extensive patchy bilateral airspace disease, consistent with pneumonia. Heart size normal. No pleural effusion or pneumothorax. No acute osseous abnormality. Impression: 1: Extensive bilateral airspace disease, compatible with pneumonia. Reviewed, dictated and finalized at location A. RATOR REPAIRER Impression: 1: Extensive bilateral airspace disease, compatible with pneumonia.
--- NOTE | 2021-03-15 13:38 | ED.GENADULT ---
HPI - General Adult General Chief complaint: Weakness Stated complaint: nausea/ covid+ Time Seen by Provider: 03/15/21 13:23 History of Present Illness HPI narrative: 65-year-old female with history of diabetes and arthritis presents to the emergency department for evaluation of Covid symptoms for approximately 1 week. Patient states she tested positive approximately 10 days ago. Patient states on days 1 through 5 she was on a course of steroids. Patient does report intractable fever and intractable nausea without vomiting. Patient has been treating the symptoms with Benadryl and Mylanta without success. Patient reports decreased p.o. intake. Patient denies any chest pain or shortness of breath. Patient is not on oxygen at home. Upon arrival to the emerge department patient was 82% on room air. Related Data Home Medications Medication Instructions Recorded Confirmed aspirin 325 mg tablet 325 mg PO DAILY 07/18/20 11/20/20 Allergies Allergy/AdvReac Type Severity Reaction Status Date / Time cephalexin Allergy Unknown Unknown Verified 03/15/21 13:28 codeine Allergy Unknown Unknown Verified 03/15/21 13:28 latex Allergy Unknown Unknown Verified 03/15/21 13:28 Penicillins Allergy Unknown Unknown Verified 03/15/21 13:28 Review of Systems Review of Systems: CONSTITUTIONAL: Reports fever EYES: Denies visual changes, redness, or discharge. ENT: Denies rhinorrhea, congestion, sore throat, or otalgia. CARDIOVASCULAR: Denies chest pain, palpitations, or edema. RESPIRATORY: Denies feeling short of breath.. GASTROINTESTINAL: Denies abdominal pain but does report nausea without vomiting GENITOURINARY: Denies dysuria or hematuria. SKIN: Denies rash or itching. MUSCULOSKELETAL: Denies back pain, joint pain, or myalgia. NEUROLOGIC: Denies headache, numbness, or weakness. PSYCHIATRIC: Denies anxiety or depression. 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 TIA (transient ischemic attack) Type 2 diabetes mellitus without complication, without long-term current use of insulin Vitamin D deficiency Surgical History Surgical History (Reviewed 11/20/20 @ 11:55 by Emily Serna [facility]) History of total hysterectomy with bilateral salpingo-oophorectomy (BSO) Status post section Status post tonsillectomy and adenoidectomy Family History Family History (Reviewed 11/20/20 @ 11:55 by Emily Serna [facility]) Mother Diabetes mellitus Hypertension Family history of cardiovascular disease Grandparent Carcinoma of colon Family history of malignant neoplasm of esophagus Family history of malignant neoplasm of breast Father Hypertension Family history of cardiovascular disease Sibling Carcinoma of colon Social History Social History (Reviewed 11/20/20 @ 11:55 by Emily Serna [facility]) Tobacco type: cigarettes Second hand tobacco smoke exposure: No Alcohol intake: never Substance use type: does not use Gender identity (if verbalized by the patient): Female Spiritual care concerns: No Exam Narrative: APPEARANCE: Well appearing, no pain in distress, well-nourished. Head normocephalic atraumtaic. EYES: PERRLA/EOMI, conjunctivae very clear. NECK: Supple. No adenopathy, no masses. RESPIRATORY: Airway patent, respirations nonlabored. Clear to auscultation bilaterally, no rales, rhonchi, wheezing. CARDIOVASCULAR: Regular rate and rhythm without murmurs rubs or gallops. ABDOMINAL: Soft, nontender, nondistended, no hepatosplenomegally MUSCULOSKELETAl: Moves all extremities. Strength/ROM intact, bilateral +1 edema, No calf tenderness. NEURO: Alert. Cranial nerves II through XI
--- NOTE | 2021-03-15 13:59 | ECG_ITS ---
Measurements Intervals [place] Rate: 89 P: 39 MD: 154 QRS: -54 QRSD: 120 T: 76 QT: 373 QTc: 454 Interpretive Statements SINUS RHYTHM LEFT ANTERIOR FASCICULAR BLOCK BORDERLINE ST-T WAVE ABNORMALITY- HIGH LATERAL LEADS BASELINE ARTIFACT- I, II, III, AVR, AVL, AVF, V1-V6 ABNORMAL ECG Electronically Signed On 03-15-2021 17:04:30 PAGEANT DIRECTOR by Favio Moctezuma D.O.
[2021-03-15] MEDS: ACETAMINOPHEN 500 MG TABLET 1000 MG PO (14:01)
[2021-03-15] MEDS: ONDANSETRON INJ 4 MG/2 ML VIAL IV PUSH (14:01)
[2021-03-15 14:14] LABS: Basophils Percent Auto 0.3 % (0.2-1.2); Hematocrit 45.4 % (37.0-47.0); Hemoglobin 14.8 g/dL (12.0-15.0); Immature Granulocyte Absolute 0.02 K/mm3 (0.00-0.031); Immature Granulocyte Percent A 0.7 % (0-0.5); Immature Platelet Fraction Pct 3.8 % (0.9-11.2); Lymphocytes Absolute Auto 0.71 K/mm3 (0.9-3.2); Lymphocytes Percent Auto 24.4 % (18.3-44.2); Mean Corpuscular HGB Conc 32.6 g/dl (32-36); Mean Corpuscular Hemoglobin 28.7 pg (26-34); Mean Platelet Volume 10.7 fl (7.4-10.4); Monocytes Absolute Auto 0.1 K/mm3 (0.1-0.6); Monocytes Percent Auto 4.8 % (2.6-8.5); Neutrophils Percent Auto 69.8 % (45.5-73.1); Platelet Count Result 140 k/mm3 (150-375); Red Blood Count 5.16 M/mm3 (4.2-5.4); Red Cell Distribution Width 14.8 % (11.5-14.5); White Blood Count 2.9 K/mm3 (4.5-10.0)
[2021-03-15] MEDS: DEXAMETHASONE 2 MG TABLET 6 MG PO (14:24)
[2021-03-15 14:26] LABS: D Dimer 0.64 ug/mL (<0.48)
[2021-03-15 14:34] LABS: Alanine Aminotransferase 29 U/L (4-35); Albumin Level 3.9 g/dL (3.5-5.1); Alkaline Phosphatase 91 U/L (38-126); Anion Gap 8 mmol/L (8-16); Aspartate Amino Transferase 56 U/L (14-36); Bilirubin,Total 0.5 mg/dL (0.2-1.3); Blood Urea Nitrogen 12 mg/dL (7-17); Calcium 8.6 mg/dL (8.4-10.2); Carbon Dioxide 29 mmol/L (22-30); Chloride 100 mmol/L (98-107); Estimated CRCL calculation 65 ml/min; Estimated Glomerular Filt Rate > 60; Glucose 141 mg/dL (65-110); Lactate Dehydrogenase 1056 U/L (313-618); Potassium 3.7 mmol/L (3.4-5.0); Sodium 137 mmol/L (137-145)
[2021-03-15 15:58] LABS: CRP 12.5 mg/dL (<1.0)
[2021-03-15 16:44] LABS: Lactic Acid Reflex 0.9 mmol/L (0.7-2.1)
--- NOTE | 2021-03-15 19:49 | PC.NURSE ---
Pt moved to room 8, report received from Marian AMES. Pt alert and upright on stretcher, eating meal. Pt 86% on 2L. Pt O2 increased with little response, placed on non-rebreather. Hospitalist notified.
--- NOTE | 2021-03-15 21:19 | PC.NURSE ---
Attempted to call report to 3rd Med/Surg at this time. No answer.
[2021-03-15 21:38] LABS: INR 0.9; Prothrombin Time 11.9 Seconds (11.1-14.7)
[2021-03-15 21:46] LABS: Alanine Aminotransferase 32 U/L (4-35); Estimated CRCL calculation 74 ml/min; Estimated Glomerular Filt Rate > 60
[2021-03-15] MEDS: REMDESIVIR 200 MG/NS 250 ML 200 MG/250 ML BAG 250 MG IVPB (22:47)
[2021-03-16] VITALS (14 sets, daily range): BP systolic 106–140; BP diastolic 37–72; PULSE 67–86; RESP 18–28; TEMP 36.2–36.7; O2SAT 89–95; BMI 48.2
--- NOTE | 2021-03-16 00:04 | PC.NURSE ---
Pt placed on continuous pulse ox. Hospitalist notified.
--- NOTE | 2021-03-16 00:09 | PC.NURSE ---
This patient, Maria Eugenia Bridges, was admitted to 3 [facility] Surg Room 307-01. Patient/family oriented to hospital policies and general routines including ID bracelet, bed and alarms, visiting hours, pain management, procedures, bathroom and other care routines, personal items, smoking policy, room service/diet, and visiting hours. Information on how to activate the Rapid Response Team has been discussed. Patient/Family are encouraged to report perceived risks to care and to ask questions if they do not understand what they are told or what they should do.
--- NOTE | 2021-03-16 00:15 | PM.IMHP ---
H&P: HPI History of Present Illness Date/Time: 03/15/2021 2100 this is a 65-year-old female patient who tested positive for COVID approximately 10 days ago. She and her both tested positive for COVID-19. She has a a history of diabetes and arthritis. The patient came to the emergency room to be evaluated for some nausea without vomiting. The patient states that on days 1 through 5 she was given a course of steroids. The patient did not receive any vaccines and has not received any monoclonal antibodies. The patient stated that she had intractable fever and intractable nausea without any vomiting. She has been using Benadryl Mylanta at home without success. She has had decreased oral intake. The patient denied any chest pain or shortness of breath. The patient is not on any oxygen at home. She has been having a severe cough. Chest x-ray was read as extensive bilateral airspace disease compatible with pneumonia. Chest CTA again was read as extensive bilateral ground-glass opacification in both lungs, consistent with widespread pneumonia. No large central pulmonary embolism limited evaluation of peripheral pulmonary arteries. Moderate thoracic spondylosis. I reviewed all of the labs and the chest x-ray and the treatment with the patient. However the patient stated she did not want to take REM does severe as she heard that it could room in your kidneys. I reviewed her labs and explained that her kidney function is within normal limits. I also explained that her liver and renal functions would be monitored closely with remdesivir. However the patient is refusing remdesivir at this time. I also spoke to the patient about code status and if she would want to be intubated if needed. I explained that her lungs have extensive infiltrates and that she was in a serious state. The patient went from having 2 L per nasal cannula oxygen and is now on 15 L of a non-rebreather. The patient tells me that she feels fine and does not feel short of breath. I also explained that the patient needed to self prone very often. This may be a difficult task is the patient is 139.8 kg. I recommended that the patient at least try to lay on her side and not lay on her back. The patient became very tearful and called her and son concerning REM does severe. The patient refused treatment. She stated that she would allow the oxygen and Decadron but would not take the remdesivir. The called me and I spoke with him who is. His name is Juno chao. His number as [phone]. I reviewed all the information as he is the this unaided durable power cement gun operator. I reviewed the treatment of COVID and side effects. We reviewed labs. The patient and her wanted the patient to be transferred to [facility]. I did call the 1 [phone] number discussed the case with the [facility] employed. The [facility] employ explained to me that they did not have any beds available at any their facilities is the or boarding patients in their emergency rooms. I called Juno back to explained this to the patient and I explained that there would be no other treatment at [facility] if the patient did not want to be intubated when in needed. I also explained that the patient does not need to be intubated at this time. However she continues to rapidly increase on her oxygen demands then she may need to be intubated some time. However we would try other methods prior to intubation. I am not able to give remdesivir at this time due to patient's refusal of treatment. The patient was started on Decadron, Zofran, and Tylenol in the emergency room. The patient stated that she felt fine and did not feel short of breath at this time. The patient is being admitted to inpatient services on the date of service of 03/15/2021. Chief Complaint: Nausea Review of Systems Review of Systems: All systems reviewed & are unremarkable except as noted in HPI and below Constitutional:
--- NOTE | 2021-03-16 01:30 | PCRCNOTE ---
Patient brought in home CPAP unit but patient is requiring NRB at 15 lpm and HFNC under NRB at 15 to keep Spo2 at 92%.
[2021-03-16] MEDS: LEVOTHYROXINE SODIUM 100 MCG TABLET PO (06:02)
[2021-03-16 06:49] LABS: Alveolar/Arterial O2 Gradient 612.8 mmHg; Base Excess ABG 0.9 mEq/l (+/-2.0); Fractional Inspired Oxygen 100 %; HCO3 ABG 25.2 mEq/l (22.0-26.0); Oxygen Content ABG 18.8 %vol (16.0-22.0); Oxygen Saturation ABG 92.1 % (95.0-100.0); Oxyhemoglobin 90.3 % THb (90.0-100.0); PO2 ABG 61.2 mmHg (80.0-100.0); PO2 FiO2 Ratio Arterial Blood 0.61 %; Total Hemoglobin 14.8 g/dL (12.0-18.0); pH ABG 7.428 (7.350-7.450)
[2021-03-16 06:51] LABS: Device NON-REBREATHER MASK; Modified Allen's Test Pass; Site Drawn RIGHT RADIAL
[2021-03-16] MEDS: FUROSEMIDE INJ 40 MG/4 ML VIAL IV PUSH (06:58)
--- NOTE | 2021-03-16 07:43 | PC.NURSE ---
0600: Pt was rounded on. Pt was saturating at 87% on 15L nonrebreather. I placed pt on 15L HF along with the 15L nonrebreather. Pt is now saturating at 90%. Pt got up to the bedside commode and saturations dropped to 71%. Pt was put back in bed and will now use a bed shah. Pt saturations slowly laila to 90%. Dr. Long was called with an update on pts status. New orders were put in. Pt to be transferred for higher flow of oxygen.
[2021-03-16 09:11] LABS: Hematocrit 46.8 % (37.0-47.0); Immature Granulocyte Absolute 0.03 K/mm3 (0.00-0.031); Immature Granulocyte Percent A 0.9 % (0-0.5); Lymphocytes Absolute Auto 0.66 K/mm3 (0.9-3.2); Lymphocytes Percent Auto 20.4 % (18.3-44.2); Mean Corpuscular HGB Conc 32.1 g/dl (32-36); Mean Corpuscular Hemoglobin 28.1 pg (26-34); Mean Corpuscular Volume 87.8 fl (80-100); Mean Platelet Volume 10.8 fl (7.4-10.4); Monocytes Absolute Auto 0.2 K/mm3 (0.1-0.6); Monocytes Percent Auto 6.8 % (2.6-8.5); Neutrophils Absolute Auto 2.3 K/mm3 (1.3-6.7); Neutrophils Percent Auto 71.9 % (45.5-73.1); Platelet Count Result 171 k/mm3 (150-375); Red Blood Count 5.33 M/mm3 (4.2-5.4); Red Cell Distribution Width 14.8 % (11.5-14.5); White Blood Count 3.2 K/mm3 (4.5-10.0)
[2021-03-16 09:24] LABS: Lactic Acid Reflex 1.6 mmol/L (0.7-2.1)
[2021-03-16 09:25] LABS: INR 0.9; Prothrombin Time 12.1 Seconds (11.1-14.7)
[2021-03-16] MEDS: ASPIRIN 325 MG TABLET PO (09:34)
[2021-03-16] MEDS: CELECOXIB 100 MG CAPSULE BY MOUTH (09:34)
[2021-03-16] MEDS: ENOXAPARIN 40 MG/0.4 ML SYRINGE SUB-Q (09:35)
[2021-03-16] MEDS: PANTOPRAZOLE 40 MG TABLET PO (09:35)
[2021-03-16] MEDS: GABAPENTIN 300 MG CAPSULE 600 MG PO ×3 (09:35→17:42)
[2021-03-16 10:02] LABS: Alanine Aminotransferase 42 U/L (4-35); Albumin Level 3.8 g/dL (3.5-5.1); Alkaline Phosphatase 89 U/L (38-126); Anion Gap 12 mmol/L (8-16); Aspartate Amino Transferase 75 U/L (14-36); Bilirubin,Total 0.5 mg/dL (0.2-1.3); Blood Urea Nitrogen 15 mg/dL (7-17); Calcium 8.6 mg/dL (8.4-10.2); Carbon Dioxide 29 mmol/L (22-30); Chloride 103 mmol/L (98-107); Estimated CRCL calculation 92 ml/min; Estimated Glomerular Filt Rate > 60; Glucose 164 mg/dL (65-110); Potassium 4.3 mmol/L (3.4-5.0); Sodium 144 mmol/L (137-145)
--- NOTE | 2021-03-16 10:28 | PM.IMPN ---
Progress Note: A&P Assessment and Plan (1) Pneumonia due to 2019 novel coronavirus: Code(s): U07.1 - COVID-19; J12.82 - Pneumonia due to coronavirus disease 2019 Status: Acute Assessment and Plan: Labs and her chest x-ray were reviewed. Continue remdesivir and Decadron. Pulmonary evaluation in a.m.. Continue 15 L per non-rebreather. (2) Anxiety: Code(s): F41.9 - Anxiety disorder, unspecified Status: Chronic Assessment and Plan: Continue with Xanax p.r.n. (3) Hypothyroidism: Qualifiers: Hypothyroidism type: unspecified Qualified Code(s): E03.9 - Hypothyroidism, unspecified Code(s): E03.9 - Hypothyroidism, unspecified Status: Acute Assessment and Plan: TSH 0.28. Continue with her home thyroid medication and check thyroid levels. Awaiting home reconciliation. (4) Mixed hyperlipidemia: Code(s): E78.2 - Mixed hyperlipidemia Status: Acute Assessment and Plan: Continue with home medications. Subjective Date/time seen: 03/16/21 10:51 this is a 65-year-old female patient who tested positive for COVID approximately 10 days ago. She and her both tested positive for COVID-19. She has a a history of diabetes and arthritis. The patient came to the emergency room to be evaluated for some nausea without vomiting. The patient states that on days 1 through 5 she was given a course of steroids. The patient did not receive any vaccines and has not received any monoclonal antibodies. The patient stated that she had intractable fever and intractable nausea without any vomiting. She has been using Benadryl Mylanta at home without success. She has had decreased oral intake. The patient denied any chest pain or shortness of breath. The patient is not on any oxygen at home. She has been having a severe cough. Chest x-ray was read as extensive bilateral airspace disease compatible with pneumonia. Chest CTA again was read as extensive bilateral ground-glass opacification in both lungs, consistent with widespread pneumonia. No large central pulmonary embolism limited evaluation of peripheral pulmonary arteries. She requested transfer to [place]; [facility] is not accepting patients at this time due to lack of bd availability. S: Patient examined at the bedside. She is anxious. She is agreeable to remdesivir. She is saturating 92-93% on 15 L non-rebreather. Review of Systems Review of Systems: All systems reviewed & are unremarkable except as noted in HPI and below Constitutional: Constitutional: Reports as per HPI and Reports no additional constitutional complaints Eyes: Eyes: Reports as per HPI and Reports no additional eye complaints ENT: Reports system reviewed and no additional complaints, except as documented and Reports Normal hearing present Cardiovascular: Cardiovascular: Reports no additional cardiovascular complaints Respiratory: Respiratory: Reports no additional respiratory complaints and Reports no additional respiratory complaints Gastrointestinal: Gastrointestinal: Reports as per HPI and Reports no additional gastrointestinal complaints Musculoskeletal: Musculoskeletal: Reports no additional musculoskeletal complaints Integumentary/Breasts: Skin/Breast: Reports system reviewed and no additional complaints, except as docu and Reports as per HPI Neurologic: Reports system reviewed and no additional complaints, except as documented, Reports as per HPI and Reports Normal hearing present Psychiatric: Psychiatric: Reports no additional psychiatric complaints and Reports as per HPI Endocrine: Endocrine: Reports no additional endocrine complaints Hematologic/Lymphatic: Hematologic/Lymphatic: Reports no additional hematologic/lymphatic complaints Allergic/Immunologic: Allergic/Immunologic: Reports no additional allergic/immunologic complaints Exam Const: General: cooperative, healthy appearing, comfortable, no acute distress, well develop
[2021-03-16 10:55] LABS: Lactate Dehydrogenase 1251 U/L (313-618)
[2021-03-16 11:25] LABS: Thyroid Stimulating Hormone Reflex 0.285 uIU/mL (0.465-4.68)
[2021-03-16 12:20] LABS: EDCOVIDSCREEN Positive (Negative)
[2021-03-16 12:21] LABS: Influenza Control Positive
--- NOTE | 2021-03-16 13:03 | PC.NURSE ---
[facility]U is ready for the patient in room 213. report called to Yenny. patient belongings taken with patient and patient reoriented to new room.
[2021-03-16 13:51] LABS: Total Triiodothyronine (T3) 0.65 NG/ML (0.97-1.69)
--- NOTE | 2021-03-16 14:23 | PC.NURSE ---
This patient, Maria Eugenia Bridges, was received from [facility] on 03/16/21 at 1423. Patient/family oriented to unit policies and routines
--- NOTE | 2021-03-16 18:29 | PM.EVENT ---
Event Note Event Note Event Note: Patient is likely hypotensive and hypoxic despite air for an non rebreather. BiPAP ordered. Stat ABG, BNP ordered. To see low stoma 800 mg IV single dose ordered. Patient transferred to [facility]. Dr. Lewis senior accounts payable clerk is aware of the case. Patient may need to be transferred if she continues to deteriorate clinically.
[2021-03-16 18:57] LABS: Alveolar/Arterial O2 Gradient 615.9 mmHg; Base Excess ABG 1.9 mEq/l (+/-2.0); Device HIGH FLOW THERAPY; Fractional Inspired Oxygen 100 %; HCO3 ABG 25.7 mEq/l (22.0-26.0); Modified Allen's Test Pass; Oxygen Content ABG 19.1 %vol (16.0-22.0); Oxyhemoglobin 90.5 % THb (90.0-100.0); PCO2 ABG 37.7 mmHg (35.0-45.0); PO2 ABG 59.4 mmHg (80.0-100.0); PO2 FiO2 Ratio Arterial Blood 0.59 %; Site Drawn RIGHT RADIAL; pH ABG 7.451 (7.350-7.450)
[2021-03-16 19:09] LABS: NT Pro B Type Natriuretic Pept 219 pg/mL (5-100)
[2021-03-16] MEDS: TOCILIZUMAB 800 MG in SODIUM CHLORIDE 0.9% IV 60 ML 100 MG IVPB (20:00)
[2021-03-17] VITALS (21 sets, daily range): BP systolic 103–133; BP diastolic 41–58; PULSE 62–88; RESP 22–43; TEMP 36.1–36.7; O2SAT 90–98
[2021-03-17 01:58] LABS: Alanine Aminotransferase 70 U/L (4-35); Estimated CRCL calculation 104 ml/min; Estimated Glomerular Filt Rate > 60; INR 0.9; Prothrombin Time 12.1 Seconds (11.1-14.7)
[2021-03-17] MEDS: REMDESIVIR 100 MG/NS 250 ML 100 MG/250 ML BAG 250 MG IVPB ×2 (01:59→21:09)
[2021-03-17] MEDS: LEVOTHYROXINE SODIUM 100 MCG TABLET PO (05:27)
[2021-03-17 06:00] LABS: CRP 6.8 mg/dL (<1.0); Lactate Dehydrogenase 1485 U/L (313-618)
--- NOTE | 2021-03-17 09:17 | PM.IMPN ---
Progress Note: A&P Assessment and Plan (1) Pneumonia due to 2019 novel coronavirus: Code(s): U07.1 - COVID-19; J12.82 - Pneumonia due to coronavirus disease 2019 Status: Acute Assessment and Plan: Acute hypoxic respiratory failure most likely related to COVID pneumonia. Patient was diagnosed COVID positive 02/14/2021 -presented to the ED with worsening hypoxia and dyspnea. In the ER patient had increasing oxygen requirements and her O2 sats were fluctuating between upper 80s to low 90s. Patient was started on non-rebreather. -on 03/16/2021, patient tolerated non rebreather, with saturation of 92-93%. However, around 6:00 p.m, she was desaturating and was started on BiPAP. -patient has been wearing BiPAP last night. -status post 1 dose lasix 40 mg IV on 03/16. - CXR shows table diffuse lung disease, consistent with COVID-19 pneumonia. (2) Pneumonia due to 2019-nCoV: Code(s): U07.1 - COVID-19; J12.82 - Pneumonia due to coronavirus disease 2018 Status: Acute Assessment and Plan: COVID positive on 02/14/2021. Patient is not vaccinated -continue remdesivir, dexamethasone. -Patient was given a single dose of tocilizumab on 03/16/2021. -continue droplet, airborne, contact isolation/precautions -her inflammatory markers continues to be increase with ferritin from 300-> 505->851, LDH growing [id number]. Mild improvement of CRP from 12.5-6.8 this morning. -pulmonary was consulted. (2) Anxiety: Code(s): F41.9 - Anxiety disorder, unspecified Status: Chronic Assessment and Plan: Continue with Xanax p.r.n. (3) Hypothyroidism: Qualifiers: Hypothyroidism type: unspecified Qualified Code(s): E03.9 - Hypothyroidism, unspecified Code(s): E03.9 - Hypothyroidism, unspecified Status: Acute Assessment and Plan: TSH 0.28. Continue with her home thyroid medication and check thyroid levels. Awaiting home reconciliation. (4) Mixed hyperlipidemia: Code(s): E78.2 - Mixed hyperlipidemia Status: Acute Assessment and Plan: Continue with home medications. Subjective Date/time seen: 12/20/21 09:17 S: Patient examined at the bedside. She is tolerating BiPAP. He did not have any complaints. Patient was saturating 95%. Review of Systems Review of Systems: All systems reviewed & are unremarkable except as noted in HPI and below Constitutional: Constitutional: Reports as per HPI and Reports no additional constitutional complaints Eyes: Eyes: Reports as per HPI and Reports no additional eye complaints ENT: Reports system reviewed and no additional complaints, except as documented and Reports Normal hearing present Cardiovascular: Cardiovascular: Reports no additional cardiovascular complaints Respiratory: Respiratory: Reports no additional respiratory complaints, Reports chest congestion, Denies cough, Denies hemoptysis, Reports dyspnea, Reports dyspnea on exertion and Denies wheezing Gastrointestinal: Gastrointestinal: Reports as per HPI and Reports no additional gastrointestinal complaints Musculoskeletal: Musculoskeletal: Reports no additional musculoskeletal complaints Integumentary/Breasts: Skin/Breast: Reports system reviewed and no additional complaints, except as docu and Reports as per HPI Neurologic: Reports system reviewed and no additional complaints, except as documented, Reports as per HPI and Reports Normal hearing present Psychiatric: Psychiatric: Reports no additional psychiatric complaints and Reports as per HPI Endocrine: Endocrine: Reports no additional endocrine complaints Hematologic/Lymphatic: Hematologic/Lymphatic: Reports no additional hematologic/lymphatic complaints Allergic/Immunologic: Allergic/Immunologic: Reports no additional allergic/immunologic complaints Exam Const: General: cooperative, healthy appearing, no acute distress, well developed, alert, awake and Physically active Nutritional Appearan
[2021-03-17] MEDS: GABAPENTIN 300 MG CAPSULE 600 MG PO ×3 (09:20→17:57)
[2021-03-17] MEDS: PANTOPRAZOLE 40 MG TABLET PO (09:20)
[2021-03-17] MEDS: ENOXAPARIN 40 MG/0.4 ML SYRINGE SUB-Q (09:21)
[2021-03-17] MEDS: ASPIRIN 325 MG TABLET PO (09:21)
[2021-03-17] MEDS: CELECOXIB 100 MG CAPSULE BY MOUTH (09:21)
[2021-03-17 15:09] LABS: PCO2 ABG 38.2 mmHg (35.0-45.0); PO2 ABG 77.5 mmHg (80.0-100.0); pH ABG 7.464 (7.350-7.450)
[2021-03-17 15:10] LABS: Alveolar/Arterial O2 Gradient 597.3 mmHg; Base Excess ABG 3.1 mEq/l (+/-2.0); Device NON-INVASIVE VENT; Fractional Inspired Oxygen 100 %; HCO3 ABG 26.8 mEq/l (22.0-26.0); Modified Allen's Test Pass; Oxygen Content ABG 20.1 %vol (16.0-22.0); Oxygen Saturation ABG 96.1 % (95.0-100.0); Oxyhemoglobin 94.7 % THb (90.0-100.0); PO2 FiO2 Ratio Arterial Blood 0.77 %; Site Drawn LEFT RADIAL; Total Hemoglobin 15.1 g/dL (12.0-18.0)
[2021-03-17 15:11] LABS: Non-Invasive Expiratory Pressure 6 CMH2O; Non-Invasive Inspiratory Pressure 10 CMH2O; Non-Invasive Vent Rate 4 /MIN
[2021-03-17] MEDS: guaiFENesin/DEXTROMETHORPHAN 10 ML UDC PO (21:09)
[2021-03-18] VITALS (18 sets, daily range): BP systolic 111–135; BP diastolic 44–74; PULSE 58–76; RESP 23–36; TEMP 36.2–36.8; O2SAT 92–98
[2021-03-18] MEDS: CYCLOBENZAPRINE HCL 10 MG TABLET PO (03:10)
[2021-03-18] MEDS: LEVOTHYROXINE SODIUM 100 MCG TABLET PO (05:36)
[2021-03-18 06:13] LABS: Prothrombin Time 12.9 Seconds (11.1-14.7)
[2021-03-18 06:23] LABS: Alanine Aminotransferase 71 U/L (4-35); Estimated CRCL calculation 103 ml/min; Estimated Glomerular Filt Rate > 60
[2021-03-18] MEDS: ENOXAPARIN 40 MG/0.4 ML SYRINGE SUB-Q ×2 (08:29→20:51)
[2021-03-18] MEDS: CELECOXIB 100 MG CAPSULE BY MOUTH (08:29)
[2021-03-18] MEDS: ASPIRIN 325 MG TABLET PO (08:29)
[2021-03-18] MEDS: GABAPENTIN 300 MG CAPSULE 600 MG PO ×3 (08:29→17:09)
[2021-03-18] MEDS: PANTOPRAZOLE 40 MG TABLET PO ×2 (08:29→17:09)
[2021-03-18 08:55] LABS: Glucose Point of Care 159 mg/dl (65-105)
--- NOTE | 2021-03-18 10:12 | PM.IMPN ---
Progress Note: A&P Assessment and Plan (1) Pneumonia due to 2019 novel coronavirus: Code(s): U07.1 - COVID-19; J12.82 - Pneumonia due to coronavirus disease 2019 Status: Acute Assessment and Plan: Acute hypoxic respiratory failure most likely related to COVID pneumonia. Patient was diagnosed COVID positive 02/14/2021 -presented to the ED with worsening hypoxia and dyspnea. In the ER patient had increasing oxygen requirements and her O2 sats were fluctuating between upper 80s to low 90s. Patient was started on non-rebreather. -on 03/16/2021, patient tolerated non rebreather, with saturation of 92-93%. However, around 6:00 p.m, she was desaturating and was started on BiPAP. -patient has been wearing BiPAP since 03/16/2021. -status post 1 dose lasix 40 mg IV on 03/16. - CXR shows table diffuse lung disease, consistent with COVID-19 pneumonia. (2) Pneumonia due to 2019-nCoV: Code(s): U07.1 - COVID-19; J12.82 - Pneumonia due to coronavirus disease 2018 Status: Acute Assessment and Plan: COVID positive on 02/14/2021. Patient is not vaccinated -currently patient on non invasive ventilatory support with BiPAP 10/6 FiO2 100%. -continue remdesivir, dexamethasone. -Patient was given a single dose of tocilizumab on 03/16/2021. -continue droplet, airborne, contact isolation/precautions -her inflammatory markers continues to be increase with ferritin from 300-> 505->851, LDH growing [id number]->[id number]. Mild improvement of CRP from 12.5-6.8 this morning. -pulmonary was consulted. Recommendation. (2) Anxiety: Code(s): F41.9 - Anxiety disorder, unspecified Status: Chronic Assessment and Plan: Continue with Xanax p.r.n. (3) Hypothyroidism: Qualifiers: Hypothyroidism type: unspecified Qualified Code(s): E03.9 - Hypothyroidism, unspecified Code(s): E03.9 - Hypothyroidism, unspecified Status: Acute Assessment and Plan: TSH 0.28. Continue with her home thyroid medication. (4) Mixed hyperlipidemia: Code(s): E78.2 - Mixed hyperlipidemia Status: Acute Assessment and Plan: Continue with home medications. Subjective Date/time seen: 03/18/21 10:12 S: Patient was seen and examined at the bedside. She is tolerating continues BiPAP. She was able to sleep last night. Currently on clear liquid diet. She denied any complaints. She was saturating 95%. On telemetry she shows normal sinus rhythm with a heart rate in the 64-69 range. Review of Systems Review of Systems: All systems reviewed & are unremarkable except as noted in HPI and below Constitutional: Constitutional: Reports as per HPI and Reports no additional constitutional complaints Eyes: Eyes: Reports as per HPI and Reports no additional eye complaints ENT: Reports system reviewed and no additional complaints, except as documented and Reports Normal hearing present Cardiovascular: Cardiovascular: Reports no additional cardiovascular complaints, Reports dyspnea and Reports dyspnea on exertion Respiratory: Respiratory: Reports no additional respiratory complaints, Reports chest congestion, Denies cough, Denies hemoptysis, Reports dyspnea, Reports dyspnea on exertion and Denies wheezing Gastrointestinal: Gastrointestinal: Reports as per HPI and Reports no additional gastrointestinal complaints Musculoskeletal: Musculoskeletal: Reports no additional musculoskeletal complaints Integumentary/Breasts: Skin/Breast: Reports system reviewed and no additional complaints, except as docu and Reports as per HPI Neurologic: Reports system reviewed and no additional complaints, except as documented, Reports as per HPI and Reports Normal hearing present Psychiatric: Psychiatric: Reports no additional psychiatric complaints and Reports as per HPI Endocrine: Endocrine: Reports no additional endocrine complaints Hematologic/Lymphatic: Hematologic/Lymphatic: Reports no additional hematologic/lymphat
[2021-03-18 12:21] LABS: Alveolar/Arterial O2 Gradient 602.8 mmHg; Base Excess ABG 3.7 mEq/l (+/-2.0); Device BIPAP; Fractional Inspired Oxygen 100 %; HCO3 ABG 28.7 mEq/l (22.0-26.0); Modified Allen's Test Pass; Oxygen Content ABG 19.7 %vol (16.0-22.0); Oxygen Saturation ABG 93.3 % (95.0-100.0); Oxyhemoglobin 92.3 % THb (90.0-100.0); PCO2 ABG 44.5 mmHg (35.0-45.0); PO2 ABG 65.7 mmHg (80.0-100.0); PO2 FiO2 Ratio Arterial Blood 0.66 %; Site Drawn RIGHT RADIAL; Total Hemoglobin 15.2 g/dL (12.0-18.0); pH ABG 7.427 (7.350-7.450)
[2021-03-18 12:22] LABS: Expiratory Pressure 6 cmH2O; Inspiratory Pressure 10 cmH2O
[2021-03-18 13:01] LABS: Glucose Point of Care 160 mg/dl (65-105)
--- NOTE | 2021-03-18 16:30 | PC.NURSE ---
Updated daughter on plan of care and patient condition.
[2021-03-18 18:22] LABS: Glucose Point of Care 200 mg/dl (65-105)
[2021-03-18 20:22] LABS: Glucose Point of Care 175 mg/dl (65-105)
[2021-03-18] MEDS: MONTELUKAST SODIUM 10 MG TABLET PO (20:51)
[2021-03-18] MEDS: REMDESIVIR 100 MG/NS 250 ML 100 MG/250 ML BAG 250 MG IVPB (20:52)
[2021-03-19] VITALS (17 sets, daily range): BP systolic 114–145; BP diastolic 56–85; PULSE 55–72; RESP 18–40; TEMP 36.5–36.7; O2SAT 91–97
[2021-03-19] MEDS: LEVOTHYROXINE SODIUM 100 MCG TABLET PO (04:57)
[2021-03-19 05:28] LABS: Hematocrit 48.9 % (37.0-47.0); Hemoglobin 15.3 g/dL (12.0-15.0); Mean Corpuscular HGB Conc 31.3 g/dl (32-36); Mean Corpuscular Hemoglobin 28.2 pg (26-34); Mean Corpuscular Volume 90.1 fl (80-100); Mean Platelet Volume 10.1 fl (7.4-10.4); Platelet Count Result 252 k/mm3 (150-375); Red Blood Count 5.43 M/mm3 (4.2-5.4); Red Cell Distribution Width 14.5 % (11.5-14.5); White Blood Count 3.9 K/mm3 (4.5-10.0)
[2021-03-19 05:38] LABS: Prothrombin Time 12.8 Seconds (11.1-14.7)
[2021-03-19 05:47] LABS: Alanine Aminotransferase 88 U/L (4-35); Anion Gap 6 mmol/L (8-16); Blood Urea Nitrogen 29 mg/dL (7-17); Calcium 8.7 mg/dL (8.4-10.2); Carbon Dioxide 31 mmol/L (22-30); Chloride 104 mmol/L (98-107); Estimated CRCL calculation 118 ml/min; Estimated Glomerular Filt Rate > 60; Glucose 161 mg/dL (65-110); Lactate Dehydrogenase 1979 U/L (313-618); Potassium 4.6 mmol/L (3.4-5.0); Sodium 141 mmol/L (137-145)
[2021-03-19 06:20] LABS: Hemoglobin A1C 7.2 % (<5.7)
[2021-03-19 08:39] LABS: Glucose Point of Care 139 mg/dl (65-105)
[2021-03-19] MEDS: ENOXAPARIN 40 MG/0.4 ML SYRINGE SUB-Q ×2 (09:01→21:11)
[2021-03-19] MEDS: ASPIRIN 325 MG TABLET PO (09:01)
[2021-03-19] MEDS: PANTOPRAZOLE 40 MG TABLET PO ×2 (09:01→17:50)
--- NOTE | 2021-03-19 09:15 | PM.CNPUL ---
Assessment and Plan Assessment and plan (1) Pneumonia due to 2019 novel coronavirus: Code(s): U07.1 - COVID-19; J12.82 - Pneumonia due to coronavirus disease 2019 Status: Acute Assessment and Plan: 65-year-old female morbidly obese, with hypoxemic respiratory failure related to extensive COVID 19 pneumonia, currently receiving dexamethasone IV remdesivir, received anti IL 6 treatment, on BiPAP 14/10 with O2 saturation greater than 90%. At this point the patient seems to be BiPAP dependent given the extensive bilateral infiltrates, and morbid obesity. I would continue with current regimen consistent dexamethasone IV remdesivir, DVT prophylaxis as ordered and monitor respiratory status. The patient may need intubation if gas exchange worsens over the next 24 hours. I will check inflammatory indices again. (2) BMI 45.0-49.9, adult: Code(s): Z68.42 - Body mass index [BMI] 45.0-49.9, adult Status: Acute (3) Hypoxia: Code(s): R09.02 - Hypoxemia Status: Acute (4) Hypothyroidism: Qualifiers: Hypothyroidism type: unspecified Qualified Code(s): E03.9 - Hypothyroidism, unspecified Code(s): E03.9 - Hypothyroidism, unspecified Status: Acute History of Present Illness History of Present Illness Consult date: 03/19/21 Chief complaint: covid pneumonia Narrative: this 65-year-old female was admitted into the hospital 4 days ago with COVID-19 pneumonia. the patient was in her usual state of health until approximately 10 days prior to this admission when she started having cough nausea fatigue and decreased appetite. She had no significant shortness of breath. She has non vaccinated. She was tested positive for COVID-19 infection as outpatient. She received steroids for few days prior to coming to the hospital. Chest imaging studies showed extensive bilateral infiltrates, consistent with COVID 19 pneumonia. There is no evidence of pulmonary embolism. The patient has received treatment with IV dexamethasone remdesivir and also anti-IL 6 treatment. over the last few days the patient's gas exchange worsened. The patient was placed on BiPAP support 14/10 last night. since admission the CRP is trending down. The D-dimer was not very elevated. BNP is also not elevated. 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 TIA (transient ischemic attack) Type 2 diabetes mellitus without complication, without long-term current use of insulin Vitamin D deficiency Surgical History Surgical History (Updated 03/16/21 @ 00:25 by Elizabeth Peña NP) History of total hysterectomy with bilateral salpingo-oophorectomy (BSO) Status post section X3 Status post tonsillectomy and adenoidectomy Family History Family History Mother Diabetes mellitus Hypertension Family history of cardiovascular disease Grandparent Carcinoma of colon Family history of malignant neoplasm of esophagus Family history of malignant neoplasm of breast Father Hypertension Family history of cardiovascular disease Sibling Carcinoma of colon Social History Social History (Updated 03/16/21 @ 00:26 by Elizabeth Peña NP) Social History: The patient is a former smoker. The patient is and lives with her . She has 3 children. The patient is a homemaker. Her is a durable power civil attorney for healthcare. The patient denies any alcohol marijuana illicit drugs
[2021-03-19 09:43] LABS: D Dimer 0.42 ug/mL (<0.48)
--- NOTE | 2021-03-19 11:45 | PM.IMPN ---
Progress Note: A&P Assessment and Plan (1) Pneumonia due to 2019 novel coronavirus: Code(s): U07.1 - COVID-19; J12.82 - Pneumonia due to coronavirus disease 2019 Status: Acute Assessment and Plan: Acute hypoxic respiratory failure most likely related to COVID pneumonia. Patient was diagnosed COVID positive 02/14/2021 -presented to the ED with worsening hypoxia and dyspnea. In the ER patient had increasing oxygen requirements and her O2 sats were fluctuating between upper 80s to low 90s. Patient was started on non-rebreather. -on 03/16/2021, patient tolerated non rebreather, with saturation of 92-93%. However, around 6:00 p.m, she was desaturating and was started on BiPAP. -patient has been wearing BiPAP since 03/16/2021. -status post 1 dose lasix 40 mg IV on 03/16. - CXR shows table diffuse lung disease, consistent with COVID-19 pneumonia. (2) Pneumonia due to 2019-nCoV: Code(s): U07.1 - COVID-19; J12.82 - Pneumonia due to coronavirus disease 2018 Status: Acute Assessment and Plan: COVID positive on 02/14/2021. Patient is not vaccinated -currently patient on non invasive ventilatory support with BiPAP 10/6 FiO2 100%. -continue remdesivir, dexamethasone. -Patient was given a single dose of tocilizumab on 03/16/2021. -continue droplet, airborne, contact isolation/precautions -her inflammatory markers continues to be increase with ferritin from 300-> 505->851, LDH growing [id number]->1485. Mild improvement of CRP from 12.5-6.8-2 this morning. -appreciate pulmonary recommendations. (2) Anxiety: Code(s): F41.9 - Anxiety disorder, unspecified Status: Chronic Assessment and Plan: Continue with Xanax p.r.n. (3) Hypothyroidism: Qualifiers: Hypothyroidism type: unspecified Qualified Code(s): E03.9 - Hypothyroidism, unspecified Code(s): E03.9 - Hypothyroidism, unspecified Status: Acute Assessment and Plan: TSH 0.28. Continue with her home thyroid medication. (4) Mixed hyperlipidemia: Code(s): E78.2 - Mixed hyperlipidemia Status: Acute Assessment and Plan: Continue with home medications. Subjective Date/time seen: 03/19/21 10:45 S: Patient was seen and examined at the bedside. She is tolerating BiPAP. She reports stomach discomfort. Review of Systems Review of Systems: All systems reviewed & are unremarkable except as noted in HPI and below Constitutional: Constitutional: Reports as per HPI and Reports no additional constitutional complaints Eyes: Eyes: Reports as per HPI and Reports no additional eye complaints ENT: Reports system reviewed and no additional complaints, except as documented and Reports Normal hearing present Cardiovascular: Cardiovascular: Reports no additional cardiovascular complaints, Reports dyspnea and Reports dyspnea on exertion Respiratory: Respiratory: Reports no additional respiratory complaints, Reports chest congestion, Denies cough, Denies hemoptysis, Reports dyspnea, Reports dyspnea on exertion and Denies wheezing Gastrointestinal: Gastrointestinal: Reports as per HPI, Reports no additional gastrointestinal complaints and Reports dyspepsia Musculoskeletal: Musculoskeletal: Reports no additional musculoskeletal complaints Integumentary/Breasts: Skin/Breast: Reports system reviewed and no additional complaints, except as docu and Reports as per HPI Neurologic: Reports system reviewed and no additional complaints, except as documented, Reports as per HPI and Reports Normal hearing present Psychiatric: Psychiatric: Reports no additional psychiatric complaints and Reports as per HPI Endocrine: Endocrine: Reports no additional endocrine complaints Hematologic/Lymphatic: Hematologic/Lymphatic: Reports no additional hematologic/lymphatic complaints Allergic/Immunologic: Allergic/Immunologic: Reports no additional allergic/immunologic complaints and Denies wheezing Exam Const: General: coope
[2021-03-19 12:09] LABS: Glucose Point of Care 154 mg/dl (65-105)
[2021-03-19] MEDS: ONDANSETRON HCL ODT 4 MG TABLET PO (12:26)
[2021-03-19 16:33] LABS: Glucose Point of Care 175 mg/dl (65-105)
[2021-03-19] MEDS: CALCIUM CARBONATE (TUMS) 500 MG (200 MG ELEMENTAL) PO (17:49)
[2021-03-19 20:11] LABS: Glucose Point of Care 172 mg/dl (65-105)
[2021-03-19] MEDS: MONTELUKAST SODIUM 10 MG TABLET PO (21:11)
[2021-03-19] MEDS: REMDESIVIR 100 MG/NS 250 ML 100 MG/250 ML BAG 250 MG IVPB (21:12)
[2021-03-20] VITALS (16 sets, daily range): BP systolic 121–131; BP diastolic 58–96; PULSE 67–89; RESP 16–37; TEMP 36.4–37.8; O2SAT 87–93
[2021-03-20] MEDS: ONDANSETRON HCL ODT 4 MG TABLET PO (00:46)
[2021-03-20] MEDS: CALCIUM CARBONATE (TUMS) 500 MG (200 MG ELEMENTAL) PO (00:46)
[2021-03-20] MEDS: ALPRAZolam (*CRX) 0.25 MG TABLET PO (04:19)
[2021-03-20] MEDS: ONDANSETRON INJ 4 MG/2 ML VIAL IV PUSH ×2 (04:56→14:39)
[2021-03-20] MEDS: FAMOTIDINE 20 MG/2 ML VIAL IV PUSH ×2 (04:56→14:38)
[2021-03-20 05:01] LABS: Prothrombin Time 13.5 Seconds (11.1-14.7)
[2021-03-20 05:08] LABS: Alanine Aminotransferase 137 U/L (4-35); Anion Gap 7 mmol/L (8-16); Blood Urea Nitrogen 29 mg/dL (7-17); Calcium 8.8 mg/dL (8.4-10.2); Carbon Dioxide 29 mmol/L (22-30); Chloride 104 mmol/L (98-107); Estimated CRCL calculation 118 ml/min; Estimated Glomerular Filt Rate > 60; Glucose 153 mg/dL (65-110); Potassium 4.3 mmol/L (3.4-5.0); Sodium 140 mmol/L (137-145)
[2021-03-20] MEDS: LEVOTHYROXINE SODIUM 100 MCG TABLET PO (06:23)
[2021-03-20 09:29] LABS: Glucose Point of Care 133 mg/dl (65-105)
--- NOTE | 2021-03-20 09:52 | PM.PNPUL ---
Progress Note: A&P Assessment and Plan (1) Pneumonia due to 2019 novel coronavirus: Code(s): U07.1 - COVID-19; J12.82 - Pneumonia due to coronavirus disease 2019 Status: Acute Assessment and Plan: 65-year-old female morbidly obese with acute hypoxemic respiratory failure related to COVID-19 pneumonia. Respiratory status has worsened over the last 48 hours with the patient now being BiPAP dependent on 14/10 and 100% FiO2. desaturates easily from just changing position in bed. Has been afebrile. Receiving dexamethasone IV and has completed remdesivir and anti IL- 6 treatment. has been on DVT prophylaxis with Lovenox b.i.d., D-dimer and CRP not very elevated. Repeat chest x-ray today. She needs workup for abdominal pain. May need intubation and transferred to the intensive care unit if clinical condition worsens. (2) Hypoxia: Code(s): R09.02 - Hypoxemia Status: Acute (3) BMI 45.0-49.9, adult: Code(s): Z68.42 - Body mass index [BMI] 45.0-49.9, adult Status: Acute (4) Acute hypoxemic respiratory failure due to COVID-19: Code(s): U07.1 - COVID-19; J96.01 - Acute respiratory failure with hypoxia Status: Acute Subjective Date/time seen: 03/20/21 09:52 No significant change in clinical condition. The patient remains BiPAP depended, on 100% FiO2. Desaturating with movements in bed. Shortness of breath about unchanged. Complaining of some abdominal pain. Afebrile hemodynamically stable. Review of Systems Review of Systems: All systems reviewed & are unremarkable except as noted in HPI and below Exam Narrative: GENERAL APPEARANCE: Well developed, well nourished, alert and cooperative, and appears to be in moderate respiratory distress while on BIPAP support SKIN: Inspection of the skin reveals no rashes, ulcerations or petechiae. HEENT: Sclerae anicteric and conjunctivae pink and moist. Extraocular movements were intact and pupils were equal, round. NECK: Supple. There was no thyroid enlargement, and no tenderness, or masses were felt. LUNGS: Auscultation of the lungs revealed Few crackles at bases posteriorly no wheezing CARDIAC: There was a regular rate and rhythm without any murmurs, gallops, rubs. ABDOMEN: Soft and nontender with normal bowel sounds. LYMPH NODES: No lymphadenopathy was appreciated in the neck. EXTREMITIES: No cyanosis, clubbing or edema. NEUROLOGIC: Alert and oriented x 3. Normal affect. Objective Data Vital Signs Vital Signs: Vital Signs - 24 hr 03/19/21 10:00 03/19/21 12:00 03/19/21 12:45 Temperature 36.5 C Pulse Rate 59 L 59 L 60 Respiratory Rate 40 H 36 H Blood Pressure 114/64 Pulse Oximetry 97 95 03/19/21 14:00 03/19/21 16:00 03/19/21 17:15 Temperature 36.7 C Pulse Rate 61 70 65 Respiratory Rate 31 H 35 H Blood Pressure 124/56 L Pulse Oximetry 97 94 03/19/21 18:00 03/19/21 20:00 03/19/21 22:00 Temperature 36.5 C Pulse Rate 68 68 68 Respiratory Rate 38 H Blood Pressure 145/85 H Pulse Oximetry 95 03/19/21 22:07 03/19/21 23:31 03/20/21 00:00 Temperature 36.6 C Pulse Rate 72 69 71 Respiratory Rate 38 H 30 H 30 H Blood Pressure 135/80 Pulse Oximetry 93 91 91 03/20/21 01:54 03/20/21 03:27 03/20/21 04:00 Temperature 36.6 C Pulse Rate 72 89 70 Respiratory Rate 29 H 29 H Blood Pressure 130/67 Pulse Oximetry 87 L 92 03/20/21 06:00 03/20/21 08:00 03/20/21 09:29 Temperature 36.4 C L Pulse Rate 75 88 78 Respiratory Rate 31 H 37 H Blood Pressure 121/59 L Pulse Oximetry 89 L 90 Intake/Output Intake/Output: Intake & Output 03/17/21 03/18/21 03/19/21 03/20/21 23:59 23:59 23:59 23:59 Intake Total 1970 650 350 50 Output Total 1250 1150 1800 450 Balance 720 -500 -1450 -400 Meds/Results Medications: Active Medications Generic Name Dose Route Start Last Admin Trade Name Freq PRN Reason Stop Dose Admin Acetaminophen 650 mg 03/18/21 10:22 Acetaminophen 32
[2021-03-20] MEDS: ENOXAPARIN 40 MG/0.4 ML SYRINGE SUB-Q ×2 (10:20→21:00)
[2021-03-20] MEDS: ASPIRIN 325 MG TABLET PO (10:21)
[2021-03-20] MEDS: PANTOPRAZOLE 40 MG TABLET PO (10:21)
[2021-03-20] MEDS: CHOLECALCIFEROL 1,000 UNITS TABLET 1000 UNITS PO (10:21)
[2021-03-20] MEDS: GABAPENTIN 300 MG CAPSULE 600 MG PO ×2 (10:21→14:38)
[2021-03-20 10:24] LABS: NT Pro B Type Natriuretic Pept 133 pg/mL (5-100)
[2021-03-20 10:24] LABS: Base Excess ABG 1.2 mEq/l (+/-2.0); HCO3 ABG 23.8 mEq/l (22.0-26.0); Oxygen Saturation ABG 96.1 % (95.0-100.0); PCO2 ABG 32.6 mmHg (35.0-45.0); PO2 ABG 75.4 mmHg (80.0-100.0); Total Hemoglobin 16.9 g/dL (12.0-18.0); pH ABG 7.481 (7.350-7.450)
[2021-03-20 10:25] LABS: Modified Allen's Test Pass; Oxygen Content ABG 22.5 %vol (16.0-22.0); Oxyhemoglobin 94.9 % THb (90.0-100.0); PO2 FiO2 Ratio Arterial Blood 0.75 %; Site Drawn RIGHT RADIAL
[2021-03-20 10:26] LABS: Device BIPAP; Expiratory Pressure 10 cmH2O; Inspiratory Pressure 14 cmH2O
--- NOTE | 2021-03-20 10:27 | PM.IMPN ---
Progress Note: A&P Assessment and Plan (1) Pneumonia due to 2019 novel coronavirus: Code(s): U07.1 - COVID-19; J12.82 - Pneumonia due to coronavirus disease 2019 Status: Acute Assessment and Plan: Acute hypoxic respiratory failure most likely related to COVID pneumonia. Patient was diagnosed COVID positive 02/14/2021 -presented to the ED with worsening hypoxia and dyspnea. In the ER patient had increasing oxygen requirements and her O2 sats were fluctuating between upper 80s to low 90s. Patient was started on non-rebreather. -on 03/16/2021, patient tolerated non rebreather, with saturation of 92-93%. However, around 6:00 p.m, she was desaturating and was started on BiPAP. -patient has been wearing BiPAP since 03/16/2021. -status post 1 dose lasix 40 mg IV on 03/16. - CXR shows table diffuse lung disease, consistent with COVID-19 pneumonia. - Respiratory status has worsened over the last 48 hours with the patient now being BiPAP dependent on 14/10 and 100% FiO2. (2) Pneumonia due to 2019-nCoV: Code(s): U07.1 - COVID-19; J12.82 - Pneumonia due to coronavirus disease 2019 Status: Acute Assessment and Plan: COVID positive on 02/14/2021. Patient is not vaccinated -currently patient on non invasive ventilatory support with BiPAP 14/10 FiO2 100%. -continue remdesivir, dexamethasone. -Patient was given a single dose of tocilizumab on 03/16/2021. -continue droplet, airborne, contact isolation/precautions -her inflammatory markers continues to be increase with ferritin from 300-> 505->851->759, LDH growing [id number]->1251->1485->1979. Mild improvement of CRP from 12.5-6.8-2 . -appreciate pulmonary recommendations. (2) Anxiety: Code(s): F41.9 - Anxiety disorder, unspecified Status: Chronic Assessment and Plan: Continue with Xanax p.r.n. (3) Hypothyroidism: Qualifiers: Hypothyroidism type: unspecified Qualified Code(s): E03.9 - Hypothyroidism, unspecified Code(s): E03.9 - Hypothyroidism, unspecified Status: Acute Assessment and Plan: TSH 0.28. Continue with her home thyroid medication. (4) Mixed hyperlipidemia: Code(s): E78.2 - Mixed hyperlipidemia Status: Acute Assessment and Plan: Continue with home medications. (5) Dyspepsia: Code(s): R10.13 - Epigastric pain Status: Acute Assessment and Plan: Currently the patient on Protonix and p.r.n. Zofran. Subjective Date/time seen: 03/20/21 09:13 S: Patient was seen examined at the bedside. When sleeping she desaturates to 88-89. While awake, her saturation improved to 90-91%. Review of Systems Review of Systems: All systems reviewed & are unremarkable except as noted in HPI and below Constitutional: Constitutional: Reports as per HPI and Reports no additional constitutional complaints Eyes: Eyes: Reports as per HPI and Reports no additional eye complaints ENT: Reports system reviewed and no additional complaints, except as documented and Reports Normal hearing present Cardiovascular: Cardiovascular: Reports no additional cardiovascular complaints, Reports dyspnea and Reports dyspnea on exertion Respiratory: Respiratory: Reports no additional respiratory complaints, Reports chest congestion, Denies cough, Denies hemoptysis, Reports dyspnea, Reports dyspnea on exertion and Denies wheezing Gastrointestinal: Gastrointestinal: Reports as per HPI, Reports no additional gastrointestinal complaints and Reports dyspepsia Musculoskeletal: Musculoskeletal: Reports no additional musculoskeletal complaints Integumentary/Breasts: Skin/Breast: Reports system reviewed and no additional complaints, except as docu and Reports as per HPI Neurologic: Reports system reviewed and no additional complaints, except as documented, Reports as per HPI and Reports Normal hearing present Psychiatric: Psychiatric: Reports no additional psychiatric complaints and Reports as per HPI Endocrine
[2021-03-20 12:52] LABS: Glucose Point of Care 156 mg/dl (65-105)
[2021-03-20 17:29] LABS: Glucose Point of Care 182 mg/dl (65-105)
[2021-03-20] MEDS: MONTELUKAST SODIUM 10 MG TABLET PO (21:00)
[2021-03-21] VITALS (17 sets, daily range): BP systolic 126–147; BP diastolic 59–82; PULSE 75–101; RESP 16–35; TEMP 35.8–37.2; O2SAT 88–95; BMI 47.3
[2021-03-21 00:41] LABS: Glucose Point of Care 147 mg/dl (65-105)
[2021-03-21 05:19] LABS: Hematocrit 50.3 % (37.0-47.0); Hemoglobin 16.5 g/dL (12.0-15.0); Mean Corpuscular HGB Conc 32.8 g/dl (32-36); Mean Corpuscular Hemoglobin 27.9 pg (26-34); Mean Corpuscular Volume 85.1 fl (80-100); Mean Platelet Volume 10.3 fl (7.4-10.4); Platelet Count Result 298 k/mm3 (150-375); Red Blood Count 5.91 M/mm3 (4.2-5.4); White Blood Count 9.7 K/mm3 (4.5-10.0)
[2021-03-21] MEDS: LEVOTHYROXINE SODIUM 100 MCG TABLET PO (05:25)
[2021-03-21] MEDS: ALPRAZolam (*CRX) 0.25 MG TABLET PO (05:25)
[2021-03-21 05:32] LABS: INR 1.1; Prothrombin Time 13.6 Seconds (11.1-14.7)
[2021-03-21 05:36] LABS: Alanine Aminotransferase 127 U/L (4-35); Anion Gap 8 mmol/L (8-16); Blood Urea Nitrogen 31 mg/dL (7-17); Carbon Dioxide 29 mmol/L (22-30); Chloride 104 mmol/L (98-107); Estimated CRCL calculation 103 ml/min; Estimated Glomerular Filt Rate > 60; Glucose 143 mg/dL (65-110); Potassium 4.3 mmol/L (3.4-5.0); Sodium 141 mmol/L (137-145)
[2021-03-21] MEDS: GABAPENTIN 300 MG CAPSULE 600 MG PO ×3 (08:13→18:14)
[2021-03-21] MEDS: PANTOPRAZOLE 40 MG TABLET PO ×2 (08:13→18:14)
[2021-03-21] MEDS: CHOLECALCIFEROL 1,000 UNITS TABLET 1000 UNITS PO (08:13)
[2021-03-21] MEDS: ASPIRIN 325 MG TABLET PO (08:13)
[2021-03-21] MEDS: ENOXAPARIN 40 MG/0.4 ML SYRINGE SUB-Q ×2 (08:14→19:44)
--- NOTE | 2021-03-21 10:27 | PM.PNPUL ---
Progress Note: A&P Assessment and Plan (1) Pneumonia due to 2019 novel coronavirus: Code(s): U07.1 - COVID-19; J12.82 - Pneumonia due to coronavirus disease 2019 Status: Acute Assessment and Plan: 65-year-old female morbidly obese with acute hypoxemic respiratory failure related to COVID-19 pneumonia. Respiratory status has worsened over the last 48 hours with the patient now being BiPAP dependent on 14/10 and 100% FiO2. desaturates easily from just changing position in bed. Has been afebrile. Receiving dexamethasone IV and has completed remdesivir and anti IL- 6 treatment. has been on DVT prophylaxis with Lovenox b.i.d., D-dimer and CRP not very elevated. Chest x-ray today. Sputum culture. start IV with D5 half normal. May need intubation and transferred to the intensive care unit if clinical condition worsens. (2) Hypoxia: Code(s): R09.02 - Hypoxemia Status: Acute (3) BMI 45.0-49.9, adult: Code(s): Z68.42 - Body mass index [BMI] 45.0-49.9, adult Status: Acute (4) Acute hypoxemic respiratory failure due to COVID-19: Code(s): U07.1 - COVID-19; J96.01 - Acute respiratory failure with hypoxia Status: Acute Subjective Date/time seen: 03/21/21 10:27 Respiratory status unchanged over last 24 hours. The patient remains on BiPAP 100% FiO2. O2 saturation in the low 90% range. shortness of breath about a changed. Afebrile. Review of Systems Review of Systems: All systems reviewed & are unremarkable except as noted in HPI and below Exam Narrative: GENERAL APPEARANCE: Well developed, well nourished, alert and cooperative, and appears to be in moderate respiratory distress while on BIPAP support SKIN: Inspection of the skin reveals no rashes, ulcerations or petechiae. HEENT: Sclerae anicteric and conjunctivae pink and moist. Extraocular movements were intact and pupils were equal, round. NECK: Supple. There was no thyroid enlargement, and no tenderness, or masses were felt. LUNGS: Auscultation of the lungs revealed Few crackles at bases posteriorly no wheezing CARDIAC: There was a regular rate and rhythm without any murmurs, gallops, rubs. ABDOMEN: Soft and nontender with normal bowel sounds. LYMPH NODES: No lymphadenopathy was appreciated in the neck. EXTREMITIES: No cyanosis, clubbing or edema. NEUROLOGIC: Alert and oriented x 3. Normal affect. Objective Data Vital Signs Vital Signs: Vital Signs - 24 hr 03/20/21 12:00 03/20/21 14:00 03/20/21 15:44 Temperature 36.9 C Pulse Rate 71 71 79 Respiratory Rate 31 H 36 H Blood Pressure 131/58 L Pulse Oximetry 91 91 03/20/21 16:00 03/20/21 18:00 03/20/21 20:00 Temperature 37.8 C H 36.6 C Pulse Rate 79 74 78 Respiratory Rate 34 H 16 Blood Pressure 125/61 130/96 H Pulse Oximetry 92 87 L 03/20/21 21:28 03/20/21 22:00 03/21/21 00:00 Temperature 36.3 C L Pulse Rate 85 77 76 Respiratory Rate 35 H 26 H Blood Pressure 126/61 Pulse Oximetry 92 91 03/21/21 02:00 03/21/21 03:45 03/21/21 04:00 Temperature 36.6 C Pulse Rate 80 75 85 Respiratory Rate 35 H 25 H Blood Pressure 137/60 Pulse Oximetry 91 89 L 03/21/21 06:00 03/21/21 08:00 03/21/21 09:58 Temperature 36.9 C Pulse Rate 88 101 H 93 Respiratory Rate 16 31 H Blood Pressure 140/82 Pulse Oximetry 90 91 Intake/Output Intake/Output: Intake & Output 03/18/21 03/19/21 03/20/21 03/21/21 23:59 23:59 23:59 23:59 Intake Total 650 350 250 Output Total 1150 1800 1025 450 Balance -500 -1450 -775 -450 Meds/Results Medications: Active Medications Generic Name Dose Route Start Last Admin Trade Name Freq PRN Reason Stop Dose Admin Acetaminophen 650 mg 03/18/21 10:22 Acetaminophen 325 Mg Tablet PO Q4H PRN Mild Pain (1-3) or Fever Albuterol 2 puff 03/20/21 01:11 Albuterol Sulfate (*Sp) Inhaler INHALATION QIDRT PRN Shortness Of Breath Alprazolam 0.25 mg 03/16/21 00:36 03/21/21
[2021-03-21 11:59] LABS: Base Excess ABG -0.8 mEq/l (+/-2.0); HCO3 ABG 24.4 mEq/l (22.0-26.0); Oxygen Saturation ABG 91.2 % (95.0-100.0); PCO2 ABG 42.1 mmHg (35.0-45.0); PO2 ABG 61.5 mmHg (80.0-100.0); Total Hemoglobin 17.4 g/dL (12.0-18.0); pH ABG 7.381 (7.350-7.450)
[2021-03-21 12:00] LABS: Alveolar/Arterial O2 Gradient 609.4 mmHg; Oxyhemoglobin 90.2 % THb (90.0-100.0); PO2 FiO2 Ratio Arterial Blood 0.62 %
[2021-03-21 12:01] LABS: Device NON-INVASIVE VENT; Fractional Inspired Oxygen 100 %; Modified Allen's Test Pass; Site Drawn RIGHT RADIAL
[2021-03-21 12:02] LABS: Non-Invasive Inspiratory Pressure 14 CMH2O; Non-Invasive Vent Rate 4 /MIN
[2021-03-21 12:03] LABS: Non-Invasive Expiratory Pressure 10 CMH2O
--- NOTE | 2021-03-21 12:05 | PM.IMPN ---
Progress Note: A&P Assessment and Plan (1) Pneumonia due to 2019 novel coronavirus: Code(s): U07.1 - COVID-19; J12.82 - Pneumonia due to coronavirus disease 2019 Status: Acute Assessment and Plan: Acute hypoxic respiratory failure most likely related to COVID pneumonia. Patient was diagnosed COVID positive 02/14/2021 -presented to the ED with worsening hypoxia and dyspnea. In the ER patient had increasing oxygen requirements and her O2 sats were fluctuating between upper 80s to low 90s. Patient was started on non-rebreather. -on 03/16/2021, patient tolerated non rebreather, with saturation of 92-93%. However, around 6:00 p.m, she was desaturating and was started on BiPAP. -patient has been wearing BiPAP since 03/16/2021. -status post 1 dose lasix 40 mg IV on 03/16. - CXR shows table diffuse lung disease, consistent with COVID-19 pneumonia. - Respiratory status has worsened over the last 48 hours with the patient now being BiPAP dependent on 14/10 and 100% FiO2. (2) Pneumonia due to 2019-nCoV: Code(s): U07.1 - COVID-19; J12.82 - Pneumonia due to coronavirus disease 2019 Status: Acute Assessment and Plan: COVID positive on 02/14/2021. Patient is not vaccinated -currently patient on non invasive ventilatory support with BiPAP 14/10 FiO2 100%. -continue remdesivir, dexamethasone. -Patient was given a single dose of tocilizumab on 03/16/2021. -continue droplet, airborne, contact isolation/precautions -her inflammatory markers continues to be increase with ferritin from 300-> 505->851->759, LDH growing [id number]->1251->1485->1979. Mild improvement of CRP from 12.5-6.8-2 . -appreciate pulmonary recommendations. (2) Anxiety: Code(s): F41.9 - Anxiety disorder, unspecified Status: Chronic Assessment and Plan: Continue with Xanax p.r.n. (3) Hypothyroidism: Qualifiers: Hypothyroidism type: unspecified Qualified Code(s): E03.9 - Hypothyroidism, unspecified Code(s): E03.9 - Hypothyroidism, unspecified Status: Acute Assessment and Plan: TSH 0.28. Continue with her home thyroid medication. (4) Mixed hyperlipidemia: Code(s): E78.2 - Mixed hyperlipidemia Status: Acute Assessment and Plan: Continue with home medications. (5) Dyspepsia: Code(s): R10.13 - Epigastric pain Status: Acute Assessment and Plan: Currently the patient on Protonix and p.r.n. Zofran. Additional Plan 03/21/2021 Patient has completed her course of remdesivir and anti IL-6 treatment. Patient is still requiring high oxygen and BiPAP. Will continue with steroids and anticoagulation. Will continue to monitor oxygen and if needed transferred to ICU. Patient is full code and want to be intubated if needed. Subjective Date/time seen: 03/21/21 12:05 Patient was seen during the morning rounds today. Patient has mild shortness of breath. Still requiring BiPAP. No chest pain, no nausea, no vomiting. Mood stable. Review of Systems Review of Systems: All systems reviewed & are unremarkable except as noted in HPI and below Constitutional: Constitutional: Reports as per HPI and Reports no additional constitutional complaints Eyes: Eyes: Reports as per HPI and Reports no additional eye complaints ENT: Reports system reviewed and no additional complaints, except as documented and Reports Normal hearing present Cardiovascular: Cardiovascular: Reports no additional cardiovascular complaints, Reports dyspnea and Reports dyspnea on exertion Respiratory: Respiratory: Reports no additional respiratory complaints, Reports chest congestion, Denies cough, Denies hemoptysis, Reports dyspnea, Reports dyspnea on exertion and Denies wheezing Gastrointestinal: Gastrointestinal: Reports as per HPI, Reports no additional gastrointestinal complaints and Reports dyspepsia Musculoskeletal: Musculoskeletal: Reports no additional musculoskeletal complaints Integumentary/Breasts:
[2021-03-21] MEDS: INSULIN ASPART (*BKC) 100 UNITS/ML SUB-Q (13:04)
[2021-03-21 13:29] LABS: Glucose Point of Care 223 mg/dl (65-105)
[2021-03-21 18:18] LABS: Glucose Point of Care 186 mg/dl (65-105)
[2021-03-21] MEDS: KCL 20 MEQ/D5/0.45% SOD CHL 1,000 ML 50 ML IV CONT (19:29)
[2021-03-21] MEDS: MONTELUKAST SODIUM 10 MG TABLET PO (19:44)
[2021-03-22] VITALS (20 sets, daily range): BP systolic 89–134; BP diastolic 47–76; PULSE 68–107; RESP 26–38; TEMP 36.1–36.9; O2SAT 82–100
[2021-03-22 00:23] LABS: Glucose Point of Care 157 mg/dl (65-105)
[2021-03-22] MEDS: ONDANSETRON INJ 4 MG/2 ML VIAL IV PUSH ×2 (04:07→06:55)
[2021-03-22] MEDS: LEVOTHYROXINE SODIUM 100 MCG TABLET PO (05:26)
[2021-03-22 06:00] LABS: Hematocrit 44.9 % (37.0-47.0); Hemoglobin 14.5 g/dL (12.0-15.0); Mean Corpuscular HGB Conc 32.3 g/dl (32-36); Mean Corpuscular Hemoglobin 28.1 pg (26-34); Mean Platelet Volume 10.8 fl (7.4-10.4); Platelet Count Result 230 k/mm3 (150-375); Red Blood Count 5.16 M/mm3 (4.2-5.4); Red Cell Distribution Width 14.1 % (11.5-14.5); White Blood Count 8.2 K/mm3 (4.5-10.0)
[2021-03-22 06:26] LABS: Glucose Point of Care 139 mg/dl (65-105)
--- NOTE | 2021-03-22 07:27 | PM.IMPN ---
Progress Note: A&P Assessment and Plan (1) Pneumonia due to 2019 novel coronavirus: Code(s): U07.1 - COVID-19; J12.82 - Pneumonia due to coronavirus disease 2019 Status: Acute Assessment and Plan: Acute hypoxic respiratory failure most likely related to COVID pneumonia. Patient was diagnosed COVID positive 02/14/2021 -presented to the ED with worsening hypoxia and dyspnea. In the ER patient had increasing oxygen requirements and her O2 sats were fluctuating between upper 80s to low 90s. Patient was started on non-rebreather. -on 03/16/2021, patient tolerated non rebreather, with saturation of 92-93%. However, around 6:00 p.m, she was desaturating and was started on BiPAP. -patient has been wearing BiPAP since 03/16/2021. -status post 1 dose lasix 40 mg IV on 03/16. - CXR shows table diffuse lung disease, consistent with COVID-19 pneumonia. - Respiratory status has worsened over the last 48 hours with the patient now being BiPAP dependent on 14/10 and 100% FiO2. (2) Pneumonia due to 2019-nCoV: Code(s): U07.1 - COVID-19; J12.82 - Pneumonia due to coronavirus disease 2019 Status: Acute Assessment and Plan: COVID positive on 02/14/2021. Patient is not vaccinated -currently patient on non invasive ventilatory support with BiPAP 14/10 FiO2 100%. -continue remdesivir, dexamethasone. -Patient was given a single dose of tocilizumab on 03/16/2021. -continue droplet, airborne, contact isolation/precautions -her inflammatory markers continues to be increase with ferritin from 300-> 505->851->759, LDH growing [id number]->1251->1485->1979. Mild improvement of CRP from 12.5-6.8-2 . -appreciate pulmonary recommendations. (2) Anxiety: Code(s): F41.9 - Anxiety disorder, unspecified Status: Chronic Assessment and Plan: Continue with Xanax p.r.n. (3) Hypothyroidism: Qualifiers: Hypothyroidism type: unspecified Qualified Code(s): E03.9 - Hypothyroidism, unspecified Code(s): E03.9 - Hypothyroidism, unspecified Status: Acute Assessment and Plan: TSH 0.28. Continue with her home thyroid medication. (4) Mixed hyperlipidemia: Code(s): E78.2 - Mixed hyperlipidemia Status: Acute Assessment and Plan: Continue with home medications. (5) Dyspepsia: Code(s): R10.13 - Epigastric pain Status: Acute Assessment and Plan: Currently the patient on Protonix and p.r.n. Zofran. Additional Plan 03/22/3021 Patient is not improving with BiPAP. We will consult ICU attending and transfer patient ICU for possible intubation. Otherwise continue current plan of care and treatment. Subjective Date/time seen: 03/22/21 07:27 Patient was seen during the morning rounds today. Moderate shortness of breath no chest pain. No abdominal pain, nausea, no vomiting. Requiring BiPAP. Review of Systems Review of Systems: All systems reviewed & are unremarkable except as noted in HPI and below Constitutional: Constitutional: Reports as per HPI and Reports no additional constitutional complaints Eyes: Eyes: Reports as per HPI and Reports no additional eye complaints ENT: Reports system reviewed and no additional complaints, except as documented and Reports Normal hearing present Cardiovascular: Cardiovascular: Reports no additional cardiovascular complaints, Reports dyspnea and Reports dyspnea on exertion Respiratory: Respiratory: Reports no additional respiratory complaints, Reports chest congestion, Denies cough, Denies hemoptysis, Reports dyspnea, Reports dyspnea on exertion and Denies wheezing Gastrointestinal: Gastrointestinal: Reports as per HPI, Reports no additional gastrointestinal complaints and Reports dyspepsia Musculoskeletal: Musculoskeletal: Reports no additional musculoskeletal complaints Integumentary/Breasts: Skin/Breast: Reports system reviewed and no additional complaints, except as docu and Reports as per HPI Neurologic: Reports syste
[2021-03-22 08:04] LABS: Hematocrit 50.7 % (37.0-47.0); Hemoglobin 16.6 g/dL (12.0-15.0); Mean Corpuscular HGB Conc 32.7 g/dl (32-36); Mean Corpuscular Hemoglobin 28.7 pg (26-34); Mean Corpuscular Volume 87.6 fl (80-100); Mean Platelet Volume 10.3 fl (7.4-10.4); Platelet Count Result 239 k/mm3 (150-375); Red Blood Count 5.79 M/mm3 (4.2-5.4); Red Cell Distribution Width 14.3 % (11.5-14.5); White Blood Count 10.2 K/mm3 (4.5-10.0)
[2021-03-22 08:09] LABS: Anion Gap 5 mmol/L (8-16); Blood Urea Nitrogen 28 mg/dL (7-17); Calcium 8.7 mg/dL (8.4-10.2); Carbon Dioxide 27 mmol/L (22-30); Chloride 105 mmol/L (98-107); Estimated CRCL calculation 100 ml/min; Estimated Glomerular Filt Rate > 60; Glucose 146 mg/dL (65-110); Potassium 3.9 mmol/L (3.4-5.0); Sodium 137 mmol/L (137-145)
[2021-03-22 08:14] LABS: pH ABG 7.396 (7.350-7.450)
[2021-03-22 08:16] LABS: Base Excess ABG 2.5 mEq/l (+/-2.0); HCO3 ABG 28.2 mEq/l (22.0-26.0); PO2 ABG 48.1 mmHg (80.0-100.0)
[2021-03-22 08:17] LABS: Oxygen Saturation ABG 83.4 % (95.0-100.0); Total Hemoglobin 17.6 g/dL (12.0-18.0)
[2021-03-22 08:18] LABS: Oxygen Content ABG 20.6 %vol (16.0-22.0); Oxyhemoglobin 83.4 % THb (90.0-100.0)
[2021-03-22 08:20] LABS: Alveolar/Arterial O2 Gradient 617.9 mmHg; Device NON-INVASIVE VENT; Fractional Inspired Oxygen 100 %; Site Drawn RIGHT BRACHIAL
[2021-03-22 08:22] LABS: Non-Invasive Expiratory Pressure 10 CMH2O; Non-Invasive Inspiratory Pressure 14 CMH2O; Non-Invasive Vent Rate 4 /MIN
[2021-03-22] MEDS: MIDAZOLAM 100MG/NS 100ML(*CRX) 100 MG/100 ML BAG IV CONT (09:36)
[2021-03-22] MEDS: LACTATED RINGERS 1,000 ML 999 ML IV CONT (09:37)
[2021-03-22] MEDS: FENTANYL 2,500MCG/NS250ML(*CRX 2,500 MCG/250 ML BAG 10 MCG IV CONT (09:37)
[2021-03-22] MEDS: CISATRACURIUM BESYLATE 200 MG in DEXTROSE 5% 80 ML 11.81 ML IV CONT ×2 (09:37→16:46)
--- NOTE | 2021-03-22 09:38 | P.PCNBED_ITS ---
Procedures Central Line Placement Right IJ: Central Line Date: 03/22/21 Discussed w/ the patient/family/POA,the placement of a central venous catheter, including its clinical necessity/indication & associated potential risks, benifits and alternatives.: Yes The patient/family/POA understand(s) and acknowledge(s) the need to proceed with central venous catheter insertion as an important element of the patient's clinical management.: Yes Time Out Performed: Yes Patient Position: supine Patient placed on monitor/pulse ox: Yes Provider Prep: mask, sterile gown, sterile gloves, Max. sterile barrier precautions, cap and hand hygiene with conventional soap/water or alcohol based hand rub Central line prep: 2% Chlorhexidine scrub Local anesthesia used: lidocaine 1% Amount of anesthesia used (ml): 3 Sterile US Technique with sterile gel/sterile probe covers: Yes Central line lumen inserted: triple Venezuelan: 12 Length (cm): 16 Depth of Insertion (cm): 16 Post Procedure: sutured in place, good blood return, all ports aspirated, flushed, capped, transparent dressing, hemostatic product, antimicrobial product, securement product and aseptic technique maintained throughout procedure Post procedure x-ray: tip of catheter in good position and no pneumothorax seen Patient tolerated procedure: well Complications: none
--- NOTE | 2021-03-22 09:40 | WPDPROCEDUR ---
Procedures Intubation Intubation Date: 03/22/21 Intubation Time: 08:26 A pre-procedural Time-Out was completed immediately before starting the procedure and confirmed: Patient Identification, Site, Procedure, Patient Position and the Availability of Requisite Equipment: Yes Sedative: etomidate Mg given: 30 Paralytic: rocuronium Mg given: 50 Laryngoscope: fiber optic video scope Assist device used: fiber optic device ET tube size: 7.5 Tube secured depth (cm): 23 Tube secured location: lips Tube placement confirmation: visualized tube passing through cords Patient tolerated procedure: well Intubation complications: none
--- NOTE | 2021-03-22 09:41 | WPDCNINT ---
Assessment and Plan Assessment and plan (1) Acute hypoxemic respiratory failure due to COVID-19: Code(s): U07.1 - COVID-19; J96.01 - Acute respiratory failure with hypoxia Status: Acute Assessment and Plan: Acute hypoxic respiratory failure likely related to COVID pneumonia, -patient up as she was on 100% FiO2, saturating in the mid 80s and tachypneic in the 40s, -intubated on 03/22/2021 -continue low tidal volume strategy, peep of 16, 100% FiO2 -chest x-ray reviewed, post intubation ABGs pending, will evaluate and make ventilator changes -will start bronchodilators and Pulmicort -sedated with fentanyl, Versed and Nimbex infusion for ventilator synchrony (2) Pneumonia due to 2019 novel coronavirus: Code(s): U07.1 - COVID-19; J12.82 - Pneumonia due to coronavirus disease 2019 Status: Acute Assessment and Plan: Patient presented on 03 16 with shortness of breath, COVID positive, nausea, weakness and decreased appetite. Patient is unvaccinated Continue dexamethasone for 10 days -status post remdesivir x5 days, will restart remdesivir for 5 more days -received tocilizumab on 03/16/2021 -continue airborne, droplet and contact isolation/precautions -CRP trending down (3) Type 2 diabetes mellitus without complication, without long-term current use of insulin: Code(s): E11.9 - Type 2 diabetes mellitus without complications Status: Acute Assessment and Plan: Continue Accu-Cheks and sliding scale insulin (4) Hypothyroidism: Qualifiers: Hypothyroidism type: unspecified Qualified Code(s): E03.9 - Hypothyroidism, unspecified Code(s): E03.9 - Hypothyroidism, unspecified Status: Acute Assessment and Plan: Continue levothyroxine (5) DVT prophylaxis: Code(s): Z29.9 - Encounter for prophylactic measures, unspecified Status: Acute Assessment and Plan: Continue Lovenox Additional Plan Stress ulcer prophylaxis: Protonix Nutrition: Will start tube feeds in a.m. Code status: Full code Critical care time spent: 56 minutes This dictation may have been done utilizing a voice recognition system. Attempts have been made to correct errors. However, there may be uncorrected grammatical, spelling, and recognition errors present. Due to a high probability of clinically significant, life threatening deterioration, the patient required my highest level of preparedness to intervene emergently and I personally spent this critical care time directly and personally managing the patient. This critical care time included obtaining a history; examining the patient; pulse oximetry; ordering and review of studies; arranging urgent treatment with development of a management plan; evaluation of patient's response to treatment; frequent reassessment; and discussions with other providers. It was exclusive of separately billable procedures and treating other patients and teaching time. Please see Assessment and Plan section and the rest of the note for further information on patient assessment and treatment [facility] Consult Note Consult date: 03/22/21 Time Seen: 08:22 Reason for consult: Acute hypoxic respiratory failure, failed BiPAP COVID-19 pneumonia, unvaccinated patient -intubated on 03/22/2021 HPI: Maria Eugenia Bridges is a 65 year old female with significant past medical history of anxiety, fibromyalgia hypothyroidism, hyperlipidemia, left frontal lobe lesion, type 2 diabetes, TIA, morbid obesity presented the ED on 03/15/2021 with complains of increasing shortness of breath along with cough, nausea, fatigue and decreased appetite. She is COVID positive, initially was placed on high-flow therapy and then BiPAP 14/10, 100% FiO2. Patient was in the IMU and overnight has been desaturating the mid 80s. Patient is on dexamethasone, remdesivir. She did receive single dose of tocilizumab on 03/16/2021. On 03/22/2021 morning was asked to see the patient, as she was desatura
[2021-03-22] MEDS: ASPIRIN 325 MG TABLET PO (10:29)
[2021-03-22] MEDS: CHOLECALCIFEROL 1,000 UNITS TABLET 1000 UNITS PO (10:30)
[2021-03-22] MEDS: MINERAL OIL/WHITE PETROLATUM OINTMENT 1 APPLIC EACH EYE ×2 (10:30→22:49)
[2021-03-22] MEDS: ENOXAPARIN 40 MG/0.4 ML SYRINGE SUB-Q ×2 (10:30→22:48)
[2021-03-22] MEDS: GABAPENTIN 300 MG CAPSULE 600 MG PO (10:30)
[2021-03-22] MEDS: PANTOPRAZOLE 40 MG TABLET PO (10:31)
[2021-03-22 11:37] LABS: HCO3 ABG 26.4 mEq/l (22.0-26.0); PCO2 ABG 47.4 mmHg (35.0-45.0); PO2 ABG 53.8 mmHg (80.0-100.0); pH ABG 7.364 (7.350-7.450)
[2021-03-22 11:38] LABS: Base Excess ABG 0.4 mEq/l (+/-2.0)
[2021-03-22] MEDS: REMDESIVIR 100 MG/NS 250 ML 100 MG/250 ML BAG 250 MG IVPB (11:39)
[2021-03-22 11:40] LABS: Alveolar/Arterial O2 Gradient 86.4 mmHg; Oxygen Content ABG 0.3 %vol (16.0-22.0); Oxygen Saturation ABG 86.6 % (95.0-100.0); Total Hemoglobin 16.6 g/dL (12.0-18.0)
[2021-03-22 11:41] LABS: Device VENTILATOR; Fractional Inspired Oxygen 100 %; Modified Allen's Test Pass; Oxyhemoglobin 93.2 % THb (90.0-100.0); Site Drawn LEFT RADIAL
[2021-03-22 11:56] LABS: Estimated CRCL calculation 100 ml/min; Estimated Glomerular Filt Rate > 60
--- NOTE | 2021-03-22 13:18 | PC.NURSE ---
0845 received patient from [facility], [place] in IMU, patient brought over for urgent intubation in obvious respiratory distress
[2021-03-22 13:29] LABS: Glucose Point of Care 167 mg/dl (65-105)
[2021-03-22] MEDS: INSULIN ASPART (*BKC) 100 UNITS/ML SUB-Q (16:48)
[2021-03-22 17:02] LABS: Glucose Point of Care 217 mg/dl (65-105)
[2021-03-22] MEDS: ALBUTEROL SULFATE NEB 2.5 MG/0.5 ML INH 5 MG INHALATION (20:43)
[2021-03-22] MEDS: BUDESONIDE RESPULE NEB 0.5 MG/2 ML AMP INHALATION (20:44)
[2021-03-22] MEDS: IPRATROPIUM BR 0.02% INH SOLN 0.5 MG/2.5 ML VIAL INHALATION (20:44)
[2021-03-22] MEDS: PANTOPRAZOLE SODIUM IV 40 MG VIAL IV PUSH (22:49)
[2021-03-22] MEDS: CENTRAL LINE FLUSH 10 ML IV PUSH (23:01)
[2021-03-23] VITALS (29 sets, daily range): BP systolic 95–164; BP diastolic 36–84; PULSE 73–141; RESP 26; TEMP 36.2–37.4; O2SAT 93–100
[2021-03-23 00:37] LABS: Glucose Point of Care 152 mg/dl (65-105)
[2021-03-23] MEDS: CISATRACURIUM BESYLATE 200 MG in DEXTROSE 5% 80 ML 11.81 ML IV CONT (01:19)
[2021-03-23] MEDS: IPRATROPIUM BR 0.02% INH SOLN 0.5 MG/2.5 ML VIAL INHALATION ×4 (02:39→19:26)
[2021-03-23] MEDS: ALBUTEROL SULFATE NEB 2.5 MG/0.5 ML INH 5 MG INHALATION ×4 (02:39→19:26)
[2021-03-23 05:00] LABS: Basophils Percent Auto 0.1 % (0.2-1.2); Eosinophils Absolute Auto 0.3 K/mm3 (0-0.3); Eosinophils Percent Auto 2.8 % (0-4.4); Hematocrit 49.1 % (37.0-47.0); Hemoglobin 16.4 g/dL (12.0-15.0); Lymphocytes Absolute Auto 1.05 K/mm3 (0.9-3.2); Lymphocytes Percent Auto 10.3 % (18.3-44.2); Mean Corpuscular HGB Conc 33.4 g/dl (32-36); Mean Corpuscular Hemoglobin 28.6 pg (26-34); Mean Corpuscular Volume 85.7 fl (80-100); Mean Platelet Volume 10.7 fl (7.4-10.4); Monocytes Absolute Auto 0.5 K/mm3 (0.1-0.6); Monocytes Percent Auto 4.5 % (2.6-8.5); Neutrophils Absolute Auto 8.3 K/mm3 (1.3-6.7); Neutrophils Percent Auto 81.3 % (45.5-73.1); Platelet Count Result 236 k/mm3 (150-375); Red Blood Count 5.73 M/mm3 (4.2-5.4); Red Cell Distribution Width 14.2 % (11.5-14.5); White Blood Count 10.2 K/mm3 (4.5-10.0)
[2021-03-23 05:16] LABS: Alanine Aminotransferase 62 U/L (4-35); Albumin Level 3.4 g/dL (3.5-5.1); Alkaline Phosphatase 91 U/L (38-126); Anion Gap 5 mmol/L (8-16); Aspartate Amino Transferase 48 U/L (14-36); Bilirubin,Total 0.9 mg/dL (0.2-1.3); Blood Urea Nitrogen 29 mg/dL (7-17); CRP < 0.5 mg/dL (<1.0); Calcium 8.7 mg/dL (8.4-10.2); Carbon Dioxide 26 mmol/L (22-30); Chloride 106 mmol/L (98-107); Estimated CRCL calculation 100 ml/min; Estimated Glomerular Filt Rate > 60; Glucose 144 mg/dL (65-110); INR 1.2; Magnesium 2.5 mg/dL (1.6-2.3); Phosphorus 3.9 mg/dL (2.5-4.5); Potassium 4.3 mmol/L (3.4-5.0); Prothrombin Time 14.7 Seconds (11.1-14.7); Sodium 137 mmol/L (137-145)
[2021-03-23 05:33] LABS: Alveolar/Arterial O2 Gradient 523.9 mmHg; Base Excess ABG -0.1 mEq/l (+/-2.0); Carboxyhemoglobin 0.3 % THb (0-2.0); Fractional Inspired Oxygen 100 %; HCO3 ABG 23.8 mEq/l (22.0-26.0); Methemoglobin ABG 0.5 %THb (0-1.5); Oxygen Content ABG 24.6 %vol (16.0-22.0); Oxyhemoglobin 97.5 % THb (90.0-100.0); PCO2 ABG 36.7 mmHg (35.0-45.0); PO2 ABG 152.4 mmHg (80.0-100.0); PO2 FiO2 Ratio Arterial Blood 1.52 %; Reduced Hemoglobin 1.7 %THb (0-5.0); Total Hemoglobin 17.8 g/dL (12.0-18.0); pH ABG 7.429 (7.350-7.450)
[2021-03-23 05:34] LABS: Device VENTILATOR; Modified Allen's Test Pass; Site Drawn RIGHT RADIAL
[2021-03-23 05:35] LABS: Arterial Blood Gas PEEP 16 cmH2O; Arterial Blood Gas Tidal Volume 400 ml; Arterial Blood Gas Vent Mode CMV; Arterial Blood Gas Ventilator rate 26 /MIN
[2021-03-23 06:00] LABS: Glucose Point of Care 148 mg/dl (65-105)
[2021-03-23] MEDS: CENTRAL LINE FLUSH 10 ML IV PUSH ×3 (06:10→20:23)
[2021-03-23] MEDS: PANTOPRAZOLE SODIUM IV 40 MG VIAL IV PUSH ×2 (08:00→20:23)
[2021-03-23] MEDS: ENOXAPARIN 40 MG/0.4 ML SYRINGE SUB-Q ×2 (08:00→20:22)
[2021-03-23] MEDS: LEVOTHYROXINE SODIUM 100 MCG TABLET PO (08:00)
[2021-03-23] MEDS: ASPIRIN 325 MG TABLET PO (08:00)
[2021-03-23] MEDS: CHOLECALCIFEROL 1,000 UNITS TABLET 1000 UNITS PO (08:00)
[2021-03-23] MEDS: ASCORBIC ACID 500 MG TABLET PO (08:00)
[2021-03-23] MEDS: MINERAL OIL/WHITE PETROLATUM OINTMENT 1 APPLIC EACH EYE ×2 (08:16→20:22)
[2021-03-23] MEDS: BUDESONIDE RESPULE NEB 0.5 MG/2 ML AMP INHALATION ×2 (08:43→19:26)
[2021-03-23] MEDS: REMDESIVIR 100 MG/NS 250 ML 100 MG/250 ML BAG 250 MG IVPB (09:31)
[2021-03-23] MEDS: FENTANYL 2,500MCG/NS250ML(*CRX 2,500 MCG/250 ML BAG 15 MCG IV CONT (09:55)
[2021-03-23] MEDS: CISATRACURIUM BESYLATE 200 MG in DEXTROSE 5% 80 ML 15.74 ML IV CONT ×2 (09:56→17:59)
[2021-03-23] MEDS: MIDAZOLAM 100MG/NS 100ML(*CRX) 100 MG/100 ML BAG IV CONT (09:57)
[2021-03-23 11:12] LABS: Glucose Point of Care 192 mg/dl (65-105)
--- NOTE | 2021-03-23 13:48 | WPDINTPN ---
Progress Note: A&P Assessment and Plan (1) Acute hypoxemic respiratory failure due to COVID-19: Code(s): U07.1 - COVID-19; J96.01 - Acute respiratory failure with hypoxia Status: Acute Assessment and Plan: Acute hypoxic respiratory failure likely related to COVID pneumonia, -patient up as she was on 100% FiO2, saturating in the mid 80s and tachypneic in the 40s, -intubated on 03/22/2021 -continue low tidal volume strategy, peep of 16, 100% FiO2 - 03/23 chest x-ray shows diffuse bilateral pulmonary infiltrates, moderately improved on the right side since 03/22/2021. Patient currently on 100% FiO2 16 of PEEP. Will decrease PEEP to 14 and FiO2 to 80% as ABGs were 7.42/36/152/ 23/ 99% O2 sats - continue bronchodilators and Pulmicort -sedated with fentanyl, Versed and Nimbex infusion for ventilator synchrony (2) Pneumonia due to 2019 novel coronavirus: Code(s): U07.1 - COVID-19; J12.82 - Pneumonia due to coronavirus disease 2019 Status: Acute Assessment and Plan: Patient presented on 03 16 with shortness of breath, COVID positive, nausea, weakness and decreased appetite. Patient is unvaccinated Continue dexamethasone for 10 days -status post remdesivir x5 days, will restart remdesivir for 5 more days -received tocilizumab on 03/16/2021 -continue airborne, droplet and contact isolation/precautions -CRP trending down (3) Type 2 diabetes mellitus without complication, without long-term current use of insulin: Code(s): E11.9 - Type 2 diabetes mellitus without complications Status: Acute Assessment and Plan: Continue Accu-Cheks and sliding scale insulin (4) Hypothyroidism: Qualifiers: Hypothyroidism type: unspecified Qualified Code(s): E03.9 - Hypothyroidism, unspecified Code(s): E03.9 - Hypothyroidism, unspecified Status: Acute Assessment and Plan: Continue levothyroxine (5) DVT prophylaxis: Code(s): Z29.9 - Encounter for prophylactic measures, unspecified Status: Acute Assessment and Plan: Continue Lovenox Additional Plan Stress ulcer prophylaxis: Protonix Nutrition: will start tube feeds. Code status: Full code Critical care time spent: 33 minutes This dictation may have been done utilizing a voice recognition system. Attempts have been made to correct errors. However, there may be uncorrected grammatical, spelling, and recognition errors present. Due to a high probability of clinically significant, life threatening deterioration, the patient required my highest level of preparedness to intervene emergently and I personally spent this critical care time directly and personally managing the patient. This critical care time included obtaining a history; examining the patient; pulse oximetry; ordering and review of studies; arranging urgent treatment with development of a management plan; evaluation of patient's response to treatment; frequent reassessment; and discussions with other providers. It was exclusive of separately billable procedures and treating other patients and teaching time. Please see Assessment and Plan section and the rest of the note for further information on patient assessment and treatment Subjective Date/time seen: 03/23/21 13:48 Interval history: Reason for consult: Acute hypoxic respiratory failure, failed BiPAP COVID-19 pneumonia, unvaccinated patient 03/23/2021: Patient remains intubated, CMV mode of ventilation, 100% FiO2 and a PEEP of 16. ABGs was 7.42/36/152/23/99%. Urine output has been adequate, patient is afebrile, LFTs are trending down, creatinine is stable at 0.7. It is in prone position. Hemodynamically stable. Patient is on fentanyl, Versed infusion for sedation. Also on Nimbex for ventilator synchrony and neuromuscular blockade. Review of Systems Review of Systems: All systems reviewed & are unremarkable except as noted in HPI and below Exam Narrative: General: Patient i
[2021-03-23 20:51] LABS: Glucose Point of Care 199 mg/dl (65-105)
[2021-03-24] VITALS (32 sets, daily range): BP systolic 100–146; BP diastolic 40–93; PULSE 85–140; RESP 26–30; TEMP 36.8–38.2; O2SAT 93–100
[2021-03-24] MEDS: hetaSTARCH 6%/NACL 500 ML 250 ML IV CONT (00:06)
[2021-03-24] MEDS: CISATRACURIUM BESYLATE 200 MG in DEXTROSE 5% 80 ML 15.74 ML IV CONT ×5 (00:07→21:23)
[2021-03-24] MEDS: INSULIN ASPART (*BKC) 100 UNITS/ML SUB-Q ×2 (00:08→17:52)
[2021-03-24 00:16] LABS: Glucose Point of Care 204 mg/dl (65-105)
[2021-03-24] MEDS: FENTANYL 2,500MCG/NS250ML(*CRX 2,500 MCG/250 ML BAG 15 MCG IV CONT ×2 (02:02→17:49)
[2021-03-24] MEDS: MIDAZOLAM 100MG/NS 100ML(*CRX) 100 MG/100 ML BAG IV CONT ×2 (02:06→20:13)
[2021-03-24] MEDS: ALBUTEROL SULFATE NEB 2.5 MG/0.5 ML INH 5 MG INHALATION ×4 (02:09→20:50)
[2021-03-24] MEDS: IPRATROPIUM BR 0.02% INH SOLN 0.5 MG/2.5 ML VIAL INHALATION ×4 (02:10→20:51)
[2021-03-24 03:35] LABS: Alveolar/Arterial O2 Gradient 243.6 mmHg; Base Excess ABG -5.7 mEq/l (+/-2.0); Carboxyhemoglobin 0.2 % THb (0-2.0); Fractional Inspired Oxygen 70 %; HCO3 ABG 26.6 mEq/l (22.0-26.0); Methemoglobin ABG 0.7 %THb (0-1.5); Oxygen Content ABG 22.9 %vol (16.0-22.0); Oxygen Saturation ABG 98.3 % (95.0-100.0); Oxyhemoglobin 97.5 % THb (90.0-100.0); PO2 ABG 162.4 mmHg (80.0-100.0); PO2 FiO2 Ratio Arterial Blood 2.32 %; Reduced Hemoglobin 1.6 %THb (0-5.0); Total Hemoglobin 16.5 g/dL (12.0-18.0)
[2021-03-24 03:38] LABS: Modified Allen's Test Pass; PCO2 ABG 86.6 mmHg (35.0-45.0); Site Drawn LEFT RADIAL; pH ABG 7.106 (7.350-7.450)
[2021-03-24 03:39] LABS: Arterial Blood Gas PEEP 16 cmH2O; Arterial Blood Gas Vent Mode CMV; Arterial Blood Gas Ventilator rate 26 /MIN; Device VENTILATOR
[2021-03-24 03:40] LABS: Arterial Blood Gas Tidal Volume 400 ml
[2021-03-24 05:17] LABS: Basophils Absolute Auto 0.1 K/mm3 (0.0-0.1); Basophils Percent Auto 0.3 % (0.2-1.2); Eosinophils Percent Auto 0.1 % (0-4.4); Hematocrit 49.9 % (37.0-47.0); Hemoglobin 15.3 g/dL (12.0-15.0); Immature Granulocyte Absolute 0.36 K/mm3 (0.00-0.031); Lymphocytes Absolute Auto 0.64 K/mm3 (0.9-3.2); Lymphocytes Percent Auto 3.6 % (18.3-44.2); Mean Corpuscular HGB Conc 30.7 g/dl (32-36); Mean Corpuscular Hemoglobin 28.1 pg (26-34); Mean Corpuscular Volume 91.6 fl (80-100); Mean Platelet Volume 11.2 fl (7.4-10.4); Monocytes Absolute Auto 1.5 K/mm3 (0.1-0.6); Monocytes Percent Auto 8.3 % (2.6-8.5); Neutrophils Absolute Auto 15.4 K/mm3 (1.3-6.7); Neutrophils Percent Auto 85.7 % (45.5-73.1); Platelet Count Result 297 k/mm3 (150-375); Red Blood Count 5.45 M/mm3 (4.2-5.4); Red Cell Distribution Width 14.6 % (11.5-14.5); White Blood Count 17.9 K/mm3 (4.5-10.0)
[2021-03-24 05:24] LABS: INR 1.3; Prothrombin Time 15.9 Seconds (11.1-14.7)
[2021-03-24 05:42] LABS: Alanine Aminotransferase 56 U/L (4-35); Albumin Level 2.8 g/dL (3.5-5.1); Alkaline Phosphatase 106 U/L (38-126); Anion Gap 7 mmol/L (8-16); Aspartate Amino Transferase 57 U/L (14-36); Bilirubin,Total 0.5 mg/dL (0.2-1.3); Blood Urea Nitrogen 38 mg/dL (7-17); Calcium 7.8 mg/dL (8.4-10.2); Carbon Dioxide 30 mmol/L (22-30); Chloride 107 mmol/L (98-107); Estimated CRCL calculation 56 ml/min; Estimated Glomerular Filt Rate 41; Glucose 183 mg/dL (65-110); Magnesium 2.8 mg/dL (1.6-2.3); Phosphorus 7.7 mg/dL (2.5-4.5); Potassium 4.6 mmol/L (3.4-5.0); Sodium 144 mmol/L (137-145)
[2021-03-24] MEDS: LEVOTHYROXINE SODIUM 100 MCG TABLET PO (06:04)
[2021-03-24] MEDS: CENTRAL LINE FLUSH 10 ML IV PUSH ×3 (06:05→20:15)
[2021-03-24] MEDS: ASCORBIC ACID 500 MG TABLET PO (08:16)
[2021-03-24] MEDS: ENOXAPARIN 40 MG/0.4 ML SYRINGE SUB-Q ×2 (08:16→20:13)
[2021-03-24] MEDS: MINERAL OIL/WHITE PETROLATUM OINTMENT 1 APPLIC EACH EYE ×2 (08:16→20:15)
[2021-03-24] MEDS: ASPIRIN 325 MG TABLET PO (08:16)
[2021-03-24] MEDS: PANTOPRAZOLE SODIUM IV 40 MG VIAL IV PUSH ×2 (08:17→20:13)
[2021-03-24] MEDS: CHOLECALCIFEROL 1,000 UNITS TABLET 1000 UNITS PO (08:17)
[2021-03-24] MEDS: LACTATED RINGERS 1,000 ML 75 ML IV CONT (08:47)
[2021-03-24 08:57] LABS: Creatine Kinase 487 U/L (30-135)
[2021-03-24 09:00] LABS: Add Urine Microscopic? YES; Appearance Urine Turbid (Clear); Bacteria Urine 1+ /hpf; Bilirubin Urine Negative (Negative); Blood Urine 3+ (Negative); Budding Yeast Urine Present /hpf; Color Urine Yellow (Yellow); Glucose Urine UA Negative (Negative); Ketones Urine Negative (Negative); Leukocyte Esterase Ur 2+ LEU/UL (Negative); Mucus Urine Heavy /lpf; Nitrate Urine Negative (Negative); Protein Urine 2+ mg/dL (Negative); RBC Urine >75 /hpf (0-2); Specific Grav Ur 1.023 (1.001-1.035); Squamous Epithelial Cell Urine Many /hpf (Few); WBC Clumps Urine Present /HPF; WBC Urine >75 /hpf
[2021-03-24 09:20] LABS: Creatinine Urine 107.6 mg/dL
[2021-03-24 09:21] LABS: Potassium Urine Random 42.3 meq/L; Sodium Urine Random 35 meq/L
[2021-03-24 09:30] LABS: Eosinophil Urine None Seen % (None Seen)
[2021-03-24] MEDS: BUDESONIDE RESPULE NEB 0.5 MG/2 ML AMP INHALATION ×2 (09:42→20:51)
[2021-03-24] MEDS: REMDESIVIR 100 MG/NS 250 ML 100 MG/250 ML BAG 250 MG IVPB (10:23)
[2021-03-24 11:39] LABS: Glucose Point of Care 191 mg/dl (65-105)
--- NOTE | 2021-03-24 14:09 | WPDINTPN ---
Progress Note: A&P Assessment and Plan (1) Acute hypoxemic respiratory failure due to COVID-19: Code(s): U07.1 - COVID-19; J96.01 - Acute respiratory failure with hypoxia Status: Acute Assessment and Plan: Acute hypoxic respiratory failure likely related to COVID pneumonia, -patient up as she was on 100% FiO2, saturating in the mid 80s and tachypneic in the 40s, -intubated on 03/22/2021 -continue low tidal volume strategy, peep of 16, 100% FiO2 -chest x-ray and ABGs reviewed, currently on a PEEP of 16 and FiO2 of 70%. ABG showed respiratory acidosis, will increase rate to 30, decrease PEEP to 14 and wean FiO2 to maintain O2 sats > 92% - continue bronchodilators and Pulmicort -sedated with fentanyl, Versed and Nimbex infusion for ventilator synchrony (2) Pneumonia due to 2019 novel coronavirus: Code(s): U07.1 - COVID-19; J12.82 - Pneumonia due to coronavirus disease 2019 Status: Acute Assessment and Plan: Patient presented on 03 16 with shortness of breath, COVID positive, nausea, weakness and decreased appetite. Patient is unvaccinated Continue dexamethasone for 10 days -status post remdesivir x5 days, will restart remdesivir for 5 more days -received tocilizumab on 03/16/2021 -continue airborne, droplet and contact isolation/precautions -CRP trending down (3) Type 2 diabetes mellitus without complication, without long-term current use of insulin: Code(s): E11.9 - Type 2 diabetes mellitus without complications Status: Acute Assessment and Plan: Continue Accu-Cheks and sliding scale insulin (4) Hypothyroidism: Qualifiers: Hypothyroidism type: unspecified Qualified Code(s): E03.9 - Hypothyroidism, unspecified Code(s): E03.9 - Hypothyroidism, unspecified Status: Acute Assessment and Plan: Continue levothyroxine (5) DVT prophylaxis: Code(s): Z29.9 - Encounter for prophylactic measures, unspecified Status: Acute Assessment and Plan: Continue Lovenox Additional Plan Stress ulcer prophylaxis: Protonix Nutrition: Tolerating tube feeds. Code status: Full code Critical care time spent: 32 minutes This dictation may have been done utilizing a voice recognition system. Attempts have been made to correct errors. However, there may be uncorrected grammatical, spelling, and recognition errors present. Due to a high probability of clinically significant, life threatening deterioration, the patient required my highest level of preparedness to intervene emergently and I personally spent this critical care time directly and personally managing the patient. This critical care time included obtaining a history; examining the patient; pulse oximetry; ordering and review of studies; arranging urgent treatment with development of a management plan; evaluation of patient's response to treatment; frequent reassessment; and discussions with other providers. It was exclusive of separately billable procedures and treating other patients and teaching time. Please see Assessment and Plan section and the rest of the note for further information on patient assessment and treatment Subjective Date/time seen: 03/24/21 14:09 Interval history: Reason for consult: Acute hypoxic respiratory failure, failed BiPAP COVID-19 pneumonia, unvaccinated patient 03/24/2021: Patient is on CMV mode of ventilation, 70% FiO2, peep of 16. Urine output has been adequate, T-max of 100.7?. Creatinine increased from 0.7-1.30 this morning. Patient is sedated with fentanyl, Versed infusions. On Nimbex of ventilator synchrony and neuromuscular blockade. Patient is hemodynamically stable, in prone position Review of Systems Review of Systems: All systems reviewed & are unremarkable except as noted in HPI and below Exam Narrative: General: Patient is intubated, sedated, in no acute distress HEENT: Pupils equal and reactive, sclera is clear Neck: Supple, no lymph
[2021-03-24 14:42] LABS: Arterial Blood Gas PEEP 16 cmH2O; Arterial Blood Gas Tidal Volume 400 ml; Arterial Blood Gas Vent Mode CMV; Arterial Blood Gas Ventilator rate 26 /MIN
--- NOTE | 2021-03-24 15:46 | PCFNICU ---
ICU Rounding Note: Pt current nutrition is Vital AF 1.2 running at 40mL/hr over 22 hours. Last recorded weight is 131.2 kg. Bowel Motility: No BM documented Labs Reviewed: hgb 15.3, Hct 49.9, Alb 2.8, GFR 41, BUN 38, Cr 1.30, Glu 183 Meds Noted: vitamin C, nimbex, decadron, lovenox, fentanyl, atrovent, synthroid, versed, protonix, remdesivir, vitamin D Skin: WNL Additional Notes: Pt intubated on 03/22. Pt is on mechanical ventilation and tube feeding of Vital AF 1.2 running at 40mL/hr over 22 hours providing 1056kcal/66g of protein/ 714mL of water. RDN switched tube feeding from Vital AF 1.2 to Vital AF 1.5 and changed goal rate from 60mL/hr to 65mL/hr to meet kcal and protein needs. Goal rate of 65mL/hr of Vital AF 1.5 will provide 2145kcal/97g of protein/1067mL of water. Diet office and nursing staff have been notified. Agree with diet orders at this time. Will continue to follow. Following daily in ICU rounds. Monitor every T/F.
[2021-03-24] MEDS: ROCURONIUM BROMIDE 50 MG/5 ML VIAL IV PUSH (16:09)
[2021-03-24 19:38] LABS: Glucose Point of Care 247 mg/dl (65-105)
[2021-03-25] VITALS (36 sets, daily range): BP systolic 90–123; BP diastolic 42–58; PULSE 67–115; RESP 30; TEMP 36.3–37.8; O2SAT 90–100
[2021-03-25] MEDS: INSULIN ASPART (*BKC) 100 UNITS/ML SUB-Q ×4 (00:11→17:15)
[2021-03-25 00:19] LABS: Glucose Point of Care 226 mg/dl (65-105)
[2021-03-25] MEDS: IPRATROPIUM BR 0.02% INH SOLN 0.5 MG/2.5 ML VIAL INHALATION ×4 (02:05→22:22)
[2021-03-25] MEDS: ALBUTEROL SULFATE NEB 2.5 MG/0.5 ML INH 5 MG INHALATION ×4 (02:05→22:21)
[2021-03-25] MEDS: CISATRACURIUM BESYLATE 200 MG in DEXTROSE 5% 80 ML 15.74 ML IV CONT ×2 (02:43→09:44)
[2021-03-25 05:22] LABS: Basophils Percent Auto 0.2 % (0.2-1.2); Eosinophils Percent Auto 0.3 % (0-4.4); Hematocrit 42.8 % (37.0-47.0); Hemoglobin 13.4 g/dL (12.0-15.0); Immature Granulocyte Absolute 0.06 K/mm3 (0.00-0.031); Immature Granulocyte Percent A 0.7 % (0-0.5); Lymphocytes Percent Auto 5.7 % (18.3-44.2); Mean Corpuscular HGB Conc 31.3 g/dl (32-36); Mean Corpuscular Volume 89.4 fl (80-100); Mean Platelet Volume 12.4 fl (7.4-10.4); Monocytes Absolute Auto 0.7 K/mm3 (0.1-0.6); Monocytes Percent Auto 7.5 % (2.6-8.5); Neutrophils Absolute Auto 7.4 K/mm3 (1.3-6.7); Neutrophils Percent Auto 85.6 % (45.5-73.1); Platelet Count Result 168 k/mm3 (150-375); Red Blood Count 4.79 M/mm3 (4.2-5.4); Red Cell Distribution Width 14.8 % (11.5-14.5); White Blood Count 8.7 K/mm3 (4.5-10.0)
[2021-03-25 05:28] LABS: INR 1.4; Prothrombin Time 16.6 Seconds (11.1-14.7)
[2021-03-25 05:31] LABS: D Dimer 1.26 ug/mL (<0.48)
[2021-03-25 05:45] LABS: Alanine Aminotransferase 48 U/L (4-35); Albumin Level 2.7 g/dL (3.5-5.1); Alkaline Phosphatase 75 U/L (38-126); Anion Gap 3 mmol/L (8-16); Aspartate Amino Transferase 49 U/L (14-36); Bilirubin,Total 0.4 mg/dL (0.2-1.3); Blood Urea Nitrogen 48 mg/dL (7-17); CRP 0.9 mg/dL (<1.0); Calcium 8.2 mg/dL (8.4-10.2); Carbon Dioxide 29 mmol/L (22-30); Chloride 106 mmol/L (98-107); Estimated CRCL calculation 56 ml/min; Estimated Glomerular Filt Rate 41; Glucose 246 mg/dL (65-110); Lactate Dehydrogenase 908 U/L (313-618); Magnesium 2.9 mg/dL (1.6-2.3); Phosphorus 3.2 mg/dL (2.5-4.5); Potassium 3.9 mmol/L (3.4-5.0); Sodium 138 mmol/L (137-145)
[2021-03-25] MEDS: CENTRAL LINE FLUSH 10 ML IV PUSH ×3 (06:00→23:08)
[2021-03-25] MEDS: LEVOTHYROXINE SODIUM 100 MCG TABLET PO (06:00)
[2021-03-25] MEDS: ACETAMINOPHEN 325 MG TABLET 650 MG PO (06:23)
[2021-03-25 06:47] LABS: Alveolar/Arterial O2 Gradient 263.6 mmHg; Base Excess ABG 0.4 mEq/l (+/-2.0); Carboxyhemoglobin 0.5 % THb (0-2.0); Fractional Inspired Oxygen 60 %; HCO3 ABG 29.4 mEq/l (22.0-26.0); Methemoglobin ABG 0.5 %THb (0-1.5); Oxygen Content ABG 22.2 %vol (16.0-22.0); Oxygen Saturation ABG 95.7 % (95.0-100.0); Oxyhemoglobin 95.4 % THb (90.0-100.0); PO2 ABG 91.7 mmHg (80.0-100.0); PO2 FiO2 Ratio Arterial Blood 1.53 %; Reduced Hemoglobin 3.6 %THb (0-5.0); Total Hemoglobin 16.5 g/dL (12.0-18.0)
[2021-03-25 06:48] LABS: PCO2 ABG 65.9 mmHg (35.0-45.0); pH ABG 7.268 (7.350-7.450)
[2021-03-25 06:49] LABS: Arterial Blood Gas PEEP 14 cmH2O; Arterial Blood Gas Tidal Volume 400 ml; Arterial Blood Gas Vent Mode CMV; Arterial Blood Gas Ventilator rate 30 /MIN; Device VENTILATOR; Modified Allen's Test Pass; Site Drawn RIGHT RADIAL
[2021-03-25] MEDS: levoFLOXacin 500 MG/D5W 100 ML 500 MG/100 ML BAG 100 MG IVPB (08:48)
[2021-03-25] MEDS: ASPIRIN 325 MG TABLET PO (08:49)
[2021-03-25] MEDS: ASCORBIC ACID 500 MG TABLET PO (08:49)
[2021-03-25] MEDS: PANTOPRAZOLE SODIUM IV 40 MG VIAL IV PUSH ×2 (08:49→23:08)
[2021-03-25] MEDS: CHOLECALCIFEROL 1,000 UNITS TABLET 1000 UNITS PO (08:49)
[2021-03-25] MEDS: MINERAL OIL/WHITE PETROLATUM OINTMENT 1 APPLIC EACH EYE ×2 (08:49→23:08)
[2021-03-25] MEDS: ENOXAPARIN 40 MG/0.4 ML SYRINGE SUB-Q ×2 (08:49→23:08)
[2021-03-25] MEDS: BUDESONIDE RESPULE NEB 0.5 MG/2 ML AMP INHALATION ×2 (09:17→22:21)
[2021-03-25] MEDS: REMDESIVIR 100 MG/NS 250 ML 100 MG/250 ML BAG 250 MG IVPB (11:15)
[2021-03-25] MEDS: FENTANYL 2,500MCG/NS250ML(*CRX 2,500 MCG/250 ML BAG 15 MCG IV CONT (11:25)
--- NOTE | 2021-03-25 12:37 | WPDINTPN ---
Progress Note: A&P Assessment and Plan (1) Acute hypoxemic respiratory failure due to COVID-19: Code(s): U07.1 - COVID-19; J96.01 - Acute respiratory failure with hypoxia Status: Acute Assessment and Plan: Acute hypoxic respiratory failure likely related to COVID pneumonia, -patient up as she was on 100% FiO2, saturating in the mid 80s and tachypneic in the 40s, -intubated on 03/22/2021 -continue low tidal volume strategy, -chest x-ray and ABGs reviewed, currently on a PEEP of 14 and FiO2 of 60%. -will prone patient for 16-18 hours daily - continue bronchodilators and Pulmicort -sedated with fentanyl, Versed and Nimbex infusion for ventilator synchrony (2) Pneumonia due to 2019 novel coronavirus: Code(s): U07.1 - COVID-19; J12.82 - Pneumonia due to coronavirus disease 2019 Status: Acute Assessment and Plan: Patient presented on 03 16 with shortness of breath, COVID positive, nausea, weakness and decreased appetite. Patient is unvaccinated dexamethasone completed today on 03/25 -status post remdesivir x5 days, will restart remdesivir for 5 more days (restarted on 03/22/2021) -received tocilizumab on 03/16/2021 -continue airborne, droplet and contact isolation/precautions -CRP normalized (3) Type 2 diabetes mellitus without complication, without long-term current use of insulin: Code(s): E11.9 - Type 2 diabetes mellitus without complications Status: Acute Assessment and Plan: Continue Accu-Cheks and sliding scale insulin (4) Hypothyroidism: Qualifiers: Hypothyroidism type: unspecified Qualified Code(s): E03.9 - Hypothyroidism, unspecified Code(s): E03.9 - Hypothyroidism, unspecified Status: Acute Assessment and Plan: Continue levothyroxine (5) DVT prophylaxis: Code(s): Z29.9 - Encounter for prophylactic measures, unspecified Status: Acute Assessment and Plan: Continue Lovenox (6) UTI (urinary tract infection): Code(s): N39.0 - Urinary tract infection, site not specified Status: Acute Assessment and Plan: UA shows UTI, started patient on Levaquin -await urine cultures (7) Dietary counseling and surveillance: Code(s): Z71.3 - Dietary counseling and surveillance Status: Acute Assessment and Plan: Patient is tolerating tube feeds Will add MiraLax S ulcer prophylaxis: Protonix Additional Plan Code status: Full code Critical care time spent: 33 minutes This dictation may have been done utilizing a voice recognition system. Attempts have been made to correct errors. However, there may be uncorrected grammatical, spelling, and recognition errors present. Due to a high probability of clinically significant, life threatening deterioration, the patient required my highest level of preparedness to intervene emergently and I personally spent this critical care time directly and personally managing the patient. This critical care time included obtaining a history; examining the patient; pulse oximetry; ordering and review of studies; arranging urgent treatment with development of a management plan; evaluation of patient's response to treatment; frequent reassessment; and discussions with other providers. It was exclusive of separately billable procedures and treating other patients and teaching time. Please see Assessment and Plan section and the rest of the note for further information on patient assessment and treatment Subjective Date/time seen: 03/25/21 12:37 Interval history: Interval history: Reason for consult: Acute hypoxic respiratory failure, failed BiPAP COVID-19 pneumonia, unvaccinated patient 03/25/2021: Patient is on CMV mode of ventilation, 60% FiO2, peep of 14. Urine output has been adequate, T-max of 100.1?. Creatinine is stable 1.3. Patient is on fentanyl and Versed infusion for sedation, also on Nimbex for neuromuscular blockade and for ventilator synchrony.
[2021-03-25 12:39] LABS: Glucose Point of Care 302 mg/dl (65-105)
[2021-03-25] MEDS: LACTATED RINGERS 1,000 ML 999 ML IV CONT (12:41)
--- NOTE | 2021-03-25 13:10 | PM.CNNEP ---
Assessment and Plan Assessment and plan (1) LINNEA (acute kidney injury): Code(s): N17.9 - Acute kidney failure, unspecified Status: Acute Assessment and Plan: normal baseline kidney function/creatinine suspect due to COVID-19 infection +/- UTI laila up to 1.3mg/dl on 03/24/21 and currently stable no critical electrolytes evaluation to date: renal ultrasound without obstruction urine electrolytes suggest prerenal azotemia urine eosinophils negative CPK mildly elevated but high enough to affect kidney function follow trend of repeat labs and UOP (2) Acute respiratory failure with hypoxia: Code(s): J96.01 - Acute respiratory failure with hypoxia Status: Acute Assessment and Plan: intubated on 03/22/21 continue ventilator support continue bronchodilators and inhalers prone positioning as tolerated continue supportive therapy (3) Pneumonia due to COVID-19 virus: Code(s): U07.1 - COVID-19; J12.82 - Pneumonia due to coronavirus disease 2019 Status: Acute Assessment and Plan: patient unvaccinated s/p decadron and remdesivir; receiving second round of remdesivir s/p tocilizumab on 03/16/21 follow inflammatory markers (4) UTI (urinary tract infection): Code(s): N39.0 - Urinary tract infection, site not specified Status: Acute Assessment and Plan: urinalysis highly suggestive follow-up on urine culture on antibiotics (5) Diabetes: Code(s): E11.9 - Type 2 diabetes mellitus without complications Status: Acute Assessment and Plan: follow accuchecks on SSI Will continue to follow. History of Present Illness Reason for Consult Consult date: 03/25/21 Reason for consult: acute renal failure Chief Complaint Chief complaint: covid pneumonia History of Present Illness Narrative: Most of the information I have obtained is from review of the electronic medical record as well as discussion with the physicians/ nurses involved in the patient's care as the patient is currently intubated and can't Davion ventilation and unable to provide me with any meaningful history. The patient is a 64-year-old female with this past medical history as outlined below who presented to [facility] Emergency room approximately 10 days ago for further evaluation of shortness of breath. Along with the shortness of breath, the patient also had complaints of cough, nausea, fatigue, and poor appetite. She is known to be COVID positive by outpatient testing and she apparently was treated with a course of steroids for 5 days but her overall symptoms continued to progressively get worse. Eventually, due to the worsening symptoms, she came to the ER for further evaluation. The patient was noted to be hypoxic in the emergency room and supplemental oxygen was applied but eventually had to be titrated up to 15 L from 2 L on presentation. From review of the records, the patient was initially refusing remdesivir as a potential treatment for her COVID-19 infection and only would allow further steroid administration. She was subsequent admitted to the hospital for further evaluation and therapy within the limits of what she would allow. Unfortunately, the patient's hospital course was complicated by ongoing hypoxia and respiratory decline. Eventually, after conservative therapy failed to maintain her respiratory status and oxygenation, she had to be transferred to the ICU and intubated and placed on mechanical ventilation. It should be noted that eventually she did receive a course of Decadron and REM does have ear as well as a dose of tocilizumab. She is currently on full ventilatory support and sedated/paralyzed as well. Renal consultation was requested after is noted labs done in the last 24-48 hours show her creatinine to be somewhat higher than baseline. Her baseline creatinine is normal around 0.6-0.9 mg/dL and acutely laila to 1.30 mg/dL yest
--- NOTE | 2021-03-25 15:12 | PCNFU ---
Nutrition Follow-Up Complete: Inadequate oral intake related to COVID-19 and bipap dependence as evidenced by no documented oral intake for several days Goal: Patient to meet estimated nutritional needs. Pt is progressing towards goal Pt current nutrition is Vital AF 1.5 running at 40mL/hr over 22 hours. Last recorded weight is 133 kg. Bowel Motility: No new BM reported. Labs Reviewed: Alb 2.7, GFR 41, BUN 48, 1.30, Glu 246 Meds Noted: albuterol, vitamin c, budesonide, nimbex, lovenox, fentanyl, novolog, atrovent, levaquin, synthroid, protonix, remdesirvir, vitamin D Skin: WNL Additional Notes: ICU nutrition follow up. Pt remains on mechanical vent and tube feeding of vital AF 1.5 running at 40mL/hr over 22 hours providing 1320kcal, 59g of protein, 672mL of water until goal rate of 60mL/hr is reached. Nursing staff reports that pt is tolerating current tube feeding and rate. Goal rate of vital AF 1.5 running at 60mL/hr over 22 hours will provide 1980kcal, 89g of protein, 1008mL of water, meeting 90% of kcal needs and 72% of protein needs. Recommend switching tube feeding back to vital AF 1.2 if glucose level remains high. Agree with diet order at this time. Will continue to follow. Will follow daily in ICU rounds. Will monitor every T/F.
[2021-03-25] MEDS: MIDAZOLAM 100MG/NS 100ML(*CRX) 100 MG/100 ML BAG IV CONT (18:00)
[2021-03-25 19:34] LABS: Glucose Point of Care 289 mg/dl (65-105)
[2021-03-25] MEDS: CISATRACURIUM BESYLATE 200 MG in DEXTROSE 5% 80 ML 13.78 ML IV CONT (19:53)
[2021-03-26] VITALS (44 sets, daily range): BP systolic 93–110; BP diastolic 38–57; PULSE 61–81; RESP 26–30; TEMP 35.9–37.2; O2SAT 89–100
[2021-03-26] MEDS: INSULIN ASPART (*BKC) 100 UNITS/ML SUB-Q ×3 (01:21→11:31)
[2021-03-26] MEDS: CISATRACURIUM BESYLATE 200 MG in DEXTROSE 5% 80 ML 15.74 ML IV CONT ×3 (01:22→22:57)
[2021-03-26 01:29] LABS: Glucose Point of Care 256 mg/dl (65-105)
[2021-03-26] MEDS: FENTANYL 2,500MCG/NS250ML(*CRX 2,500 MCG/250 ML BAG 15 MCG IV CONT ×2 (05:09→22:27)
[2021-03-26 05:15] LABS: Basophils Percent Auto 0.1 % (0.2-1.2); Eosinophils Percent Auto 0.2 % (0-4.4); Hematocrit 34.8 % (37.0-47.0); Hemoglobin 11.1 g/dL (12.0-15.0); Immature Granulocyte Absolute 0.11 K/mm3 (0.00-0.031); Immature Granulocyte Percent A 1.2 % (0-0.5); Lymphocytes Absolute Auto 0.72 K/mm3 (0.9-3.2); Mean Corpuscular HGB Conc 31.9 g/dl (32-36); Mean Corpuscular Hemoglobin 27.9 pg (26-34); Mean Corpuscular Volume 87.4 fl (80-100); Mean Platelet Volume 12.2 fl (7.4-10.4); Monocytes Absolute Auto 0.7 K/mm3 (0.1-0.6); Monocytes Percent Auto 7.9 % (2.6-8.5); Neutrophils Absolute Auto 7.4 K/mm3 (1.3-6.7); Neutrophils Percent Auto 82.6 % (45.5-73.1); Platelet Count Result 147 k/mm3 (150-375); Red Blood Count 3.98 M/mm3 (4.2-5.4); Red Cell Distribution Width 14.7 % (11.5-14.5)
[2021-03-26 05:28] LABS: Alanine Aminotransferase 42 U/L (4-35); Albumin Level 2.5 g/dL (3.5-5.1); Alkaline Phosphatase 64 U/L (38-126); Anion Gap -1 mmol/L (8-16); Aspartate Amino Transferase 44 U/L (14-36); Bilirubin,Total 0.4 mg/dL (0.2-1.3); Blood Urea Nitrogen 48 mg/dL (7-17); Calcium 8.5 mg/dL (8.4-10.2); Carbon Dioxide 30 mmol/L (22-30); Chloride 108 mmol/L (98-107); Estimated CRCL calculation 72 ml/min; Estimated Glomerular Filt Rate 56; Glucose 284 mg/dL (65-110); INR 1.3; Magnesium 2.9 mg/dL (1.6-2.3); Phosphorus 1.8 mg/dL (2.5-4.5); Prothrombin Time 16.1 Seconds (11.1-14.7); Sodium 137 mmol/L (137-145)
[2021-03-26] MEDS: CENTRAL LINE FLUSH 10 ML IV PUSH ×3 (05:58→23:26)
[2021-03-26] MEDS: LEVOTHYROXINE SODIUM 100 MCG TABLET PO (05:58)
[2021-03-26 06:04] LABS: Alveolar/Arterial O2 Gradient 270.8 mmHg; Base Excess ABG 3.4 mEq/l (+/-2.0); Carboxyhemoglobin 0.3 % THb (0-2.0); Fractional Inspired Oxygen 65 %; HCO3 ABG 27.9 mEq/l (22.0-26.0); Methemoglobin ABG 0.2 %THb (0-1.5); Oxygen Content ABG 17.3 %vol (16.0-22.0); Oxyhemoglobin 97.7 % THb (90.0-100.0); PCO2 ABG 41.9 mmHg (35.0-45.0); PO2 ABG 147.1 mmHg (80.0-100.0); PO2 FiO2 Ratio Arterial Blood 2.26 %; Reduced Hemoglobin 1.8 %THb (0-5.0); Total Hemoglobin 12.4 g/dL (12.0-18.0); pH ABG 7.441 (7.350-7.450)
[2021-03-26 06:06] LABS: Arterial Blood Gas Ventilator rate 30 /MIN; Device VENTILATOR; Modified Allen's Test Pass; Site Drawn RIGHT RADIAL
[2021-03-26 06:07] LABS: Arterial Blood Gas PEEP 14 cmH2O; Arterial Blood Gas Tidal Volume 400 ml; Arterial Blood Gas Vent Mode CMV
[2021-03-26] MEDS: PANTOPRAZOLE SODIUM IV 40 MG VIAL IV PUSH ×2 (08:09→23:25)
[2021-03-26] MEDS: CHOLECALCIFEROL 1,000 UNITS TABLET 1000 UNITS PO (08:09)
[2021-03-26] MEDS: ENOXAPARIN 40 MG/0.4 ML SYRINGE SUB-Q ×2 (08:09→23:25)
[2021-03-26] MEDS: ASCORBIC ACID 500 MG TABLET PO (08:09)
[2021-03-26] MEDS: ASPIRIN 325 MG TABLET PO (08:09)
[2021-03-26] MEDS: MINERAL OIL/WHITE PETROLATUM OINTMENT 1 APPLIC EACH EYE ×2 (08:10→23:25)
[2021-03-26] MEDS: polyethylene glycoL 3350 17 GM POWD.PACK PO (08:10)
[2021-03-26] MEDS: levoFLOXacin 500 MG/D5W 100 ML 500 MG/100 ML BAG 100 MG IVPB (08:10)
[2021-03-26] MEDS: BUDESONIDE RESPULE NEB 0.5 MG/2 ML AMP INHALATION ×2 (08:45→21:14)
[2021-03-26] MEDS: IPRATROPIUM BR 0.02% INH SOLN 0.5 MG/2.5 ML VIAL INHALATION ×3 (08:45→21:14)
[2021-03-26] MEDS: ALBUTEROL SULFATE NEB 2.5 MG/0.5 ML INH 5 MG INHALATION ×3 (08:45→21:14)
[2021-03-26] MEDS: LACTATED RINGERS 1,000 ML 999 ML IV CONT (10:15)
[2021-03-26] MEDS: INSULIN GLARGINE (*BKC) 100 UNITS/ML 20 UNITS SUB-Q (10:15)
[2021-03-26] MEDS: REMDESIVIR 100 MG/NS 250 ML 100 MG/250 ML BAG 250 MG IVPB (11:30)
[2021-03-26 12:16] LABS: Glucose Point of Care 242 mg/dl (65-105)
[2021-03-26] MEDS: hetaSTARCH 6%/NACL 500 ML 250 ML IV CONT (12:30)
--- NOTE | 2021-03-26 12:55 | P.PNNP_ITS ---
Progress Note: A&P Assessment and Plan (1) LINNEA (acute kidney injury): Code(s): N17.9 - Acute kidney failure, unspecified Status: Acute Assessment and Plan: * normal baseline kidney function/creatinine * suspect due to COVID-19 infection +/- UTI * laila up to 1.3mg/dl on 03/24/21 but improved now to 1.0. * no critical electrolytes * evaluation to date: * renal ultrasound without obstruction * urine electrolytes suggest prerenal azotemia * urine eosinophils negative * CPK mildly elevated but high enough to affect kidney function. Repeat this tomorrow. * Will check another creatinine tomorrow and check a CPK. (2) Acute respiratory failure with hypoxia: Code(s): J96.01 - Acute respiratory failure with hypoxia Status: Acute Assessment and Plan: * intubated on 03/22/21 * On supportive care including Nimbex, pulmonary toilet, inhalers, rotation. (3) Pneumonia due to COVID-19 virus: Code(s): U07.1 - COVID-19; J12.82 - Pneumonia due to coronavirus disease 2019 Status: Acute Assessment and Plan: * patient unvaccinated * s/p decadron and remdesivir; receiving second round of remdesivir * s/p tocilizumab on 03/16/21 (4) UTI (urinary tract infection): Code(s): N39.0 - Urinary tract infection, site not specified Status: Acute Assessment and Plan: * urinalysis highly suggestive * follow-up on urine culture * on antibiotics (5) Diabetes: Code(s): E11.9 - Type 2 diabetes mellitus without complications Status: Acute Assessment and Plan: * On Accu-Cheks and sliding-scale insulin Subjective Date/time seen: 03/26/21 12:55 Interval history: Patient is on sedatives, paralytics, and is on the ventilator. Exam Narrative: WDWN in NAD skin no rash head ncat lungs coarse and symmetric cor reg no rub abd BS+ nontender and soft ext 1+ edema. Objective Data Vital Signs Vital Signs: Vital Signs - 24 hr 03/25/21 13:15 03/25/21 13:33 03/25/21 14:00 Temperature 36.9 C 36.4 C L Pulse Rate 69 69 68 Respiratory Rate 30 H 30 H 30 H Blood Pressure 90/45 L 96/42 L 94/46 L Pulse Oximetry 98 99 98 03/25/21 14:33 03/25/21 15:33 03/25/21 15:52 Temperature 36.4 C L 36.3 C L Pulse Rate 89 103 H 84 Respiratory Rate 30 H 30 H 30 H Blood Pressure 100/42 L 104/46 L Pulse Oximetry 92 96 03/25/21 15:56 03/25/21 16:00 03/25/21 16:13 Temperature 36.4 C L Pulse Rate 84 85 79 Respiratory Rate 30 H 30 H Blood Pressure 106/55 L Pulse Oximetry 99 100 03/25/21 18:00 03/25/21 18:06 03/25/21 19:53 Temperature Pulse Rate 88 79 78 Respiratory Rate 30 H 30 H Blood Pressure 100/46 L 100/46 L Pulse Oximetry 100 100 03/25/21 20:00 03/25/21 22:00 03/25/21 22:22 Temperature 36.6 C Pulse Rate 74 68 68 Respiratory Rate 30 H 30 H 30 H Blood Pressure 99/47 L 98/44 L Pulse Oximetry 100 100 03/25/21 22:23 03/26/21 00:00 03/26/21 01:04 Temperature 36.1 C L Pulse Rate 67 65 66 Respiratory Rate 30 H Blood Pressure 104/48 L Pulse Oximetry 100 100 100
--- NOTE | 2021-03-26 12:55 | PM.PNNEP ---
Progress Note: A&P Assessment and Plan (1) LINNEA (acute kidney injury): Code(s): N17.9 - Acute kidney failure, unspecified Status: Acute Assessment and Plan: normal baseline kidney function/creatinine suspect due to COVID-19 infection +/- UTI laila up to 1.3mg/dl on 03/24/21 but improved now to 1.0. no critical electrolytes evaluation to date: renal ultrasound without obstruction urine electrolytes suggest prerenal azotemia urine eosinophils negative CPK mildly elevated but high enough to affect kidney function. Repeat this tomorrow. Will check another creatinine tomorrow and check a CPK. (2) Acute respiratory failure with hypoxia: Code(s): J96.01 - Acute respiratory failure with hypoxia Status: Acute Assessment and Plan: intubated on 03/22/21 On supportive care including Nimbex, pulmonary toilet, inhalers, rotation. (3) Pneumonia due to COVID-19 virus: Code(s): U07.1 - COVID-19; J12.82 - Pneumonia due to coronavirus disease 2019 Status: Acute Assessment and Plan: patient unvaccinated s/p decadron and remdesivir; receiving second round of remdesivir s/p tocilizumab on 03/16/21 (4) UTI (urinary tract infection): Code(s): N39.0 - Urinary tract infection, site not specified Status: Acute Assessment and Plan: urinalysis highly suggestive follow-up on urine culture on antibiotics (5) Diabetes: Code(s): E11.9 - Type 2 diabetes mellitus without complications Status: Acute Assessment and Plan: On Accu-Cheks and sliding-scale insulin Subjective Date/time seen: 03/26/21 12:55 Interval history: Patient is on sedatives, paralytics, and is on the ventilator. Exam Narrative: WDWN in NAD skin no rash head ncat lungs coarse and symmetric cor reg no rub abd BS+ nontender and soft ext 1+ edema. Objective Data Vital Signs Vital Signs: Vital Signs - 24 hr 03/25/21 13:15 03/25/21 13:33 03/25/21 14:00 Temperature 36.9 C 36.4 C L Pulse Rate 69 69 68 Respiratory Rate 30 H 30 H 30 H Blood Pressure 90/45 L 96/42 L 94/46 L Pulse Oximetry 98 99 98 03/25/21 14:33 03/25/21 15:33 03/25/21 15:52 Temperature 36.4 C L 36.3 C L Pulse Rate 89 103 H 84 Respiratory Rate 30 H 30 H 30 H Blood Pressure 100/42 L 104/46 L Pulse Oximetry 92 96 03/25/21 15:56 03/25/21 16:00 03/25/21 16:13 Temperature 36.4 C L Pulse Rate 84 85 79 Respiratory Rate 30 H 30 H Blood Pressure 106/55 L Pulse Oximetry 99 100 03/25/21 18:00 03/25/21 18:06 03/25/21 19:53 Temperature Pulse Rate 88 79 78 Respiratory Rate 30 H 30 H Blood Pressure 100/46 L 100/46 L Pulse Oximetry 100 100 03/25/21 20:00 03/25/21 22:00 03/25/21 22:22 Temperature 36.6 C Pulse Rate 74 68 68 Respiratory Rate 30 H 30 H 30 H Blood Pressure 99/47 L 98/44 L Pulse Oximetry 100 100 03/25/21 22:23 03/26/21 00:00 03/26/21 01:04 Temperature 36.1 C L Pulse Rate 67 65 66 Respiratory Rate 30 H Blood Pressure 104/48 L Pulse Oximetry 100 100 100 03/26/21 01:22 03/26/21 02:00 03/26/21 04:00 Temperature 36.1 C L 36.2 C L Pulse Rate 65 63 61 Respiratory Rate 28 H 30 H Blood Pressure 104/48 L 100/47 L 97/48 L Pulse Oximetry 100 100 03/26/21 04:06 03/26/21 05:09 03/26/21 05:38 Temperature Pulse Rate 63 63 64 Respiratory Rate 30 H 30 H Blood Pressure Pulse Oximetry 100 03/26/21 06:00 03/26/21 07:58 03/26/21 08:00 Temperature 36.1 C L 36.5 C Pulse Rate 61 65 66 Respiratory Rate 30 H 30 H 30 H Blood Pressure 93/57 L 95/49 L Pulse Oximetry 100 100 100 03/26/21 08:10 03/26/21 08:11 03/26/21 08:12 Temperature Pulse Rate 65 65 65 Respiratory Rate 30 H 30 H 30 H Blood Pressure 95/49 L Pulse Oximetry 03/26/21 08:45 03/26/21 08:54 03/26/21 10:00 Temperature Pulse Rate 65 67 67 Respiratory Rate 30 H 30 H 30 H Blood Pressure 100/46 L Pulse Oximetry 100 100 03/26
[2021-03-26] MEDS: MIDAZOLAM 100MG/NS 100ML(*CRX) 100 MG/100 ML BAG IV CONT (15:08)
--- NOTE | 2021-03-26 15:23 | WPDINTPN ---
Progress Note: A&P Assessment and Plan (1) Acute hypoxemic respiratory failure due to COVID-19: Code(s): U07.1 - COVID-19; J96.01 - Acute respiratory failure with hypoxia Status: Acute Assessment and Plan: Acute hypoxic respiratory failure likely related to COVID pneumonia, -patient up as she was on 100% FiO2, saturating in the mid 80s and tachypneic in the 40s, -intubated on 03/22/2021 -continue low tidal volume strategy, -chest x-ray and ABGs reviewed, currently on a PEEP of 14 and FiO2 of 65%. Will wean FiO2 to maintain O2 sats greater than 92%, will also wean PEEP to 12 -will prone patient for 16-18 hours daily - continue bronchodilators and Pulmicort -sedated with fentanyl, Versed and Nimbex infusion for ventilator synchrony (2) Pneumonia due to 2019 novel coronavirus: Code(s): U07.1 - COVID-19; J12.82 - Pneumonia due to coronavirus disease 2019 Status: Acute Assessment and Plan: Patient presented on 03 16 with shortness of breath, COVID positive, nausea, weakness and decreased appetite. Patient is unvaccinated dexamethasone completed today on 03/25 -status post remdesivir x5 days, will restart remdesivir for 5 more days (restarted on 03/22/2021) -received tocilizumab on 03/16/2021 -continue airborne, droplet and contact isolation/precautions -CRP normalized (3) Type 2 diabetes mellitus without complication, without long-term current use of insulin: Code(s): E11.9 - Type 2 diabetes mellitus without complications Status: Acute Assessment and Plan: Continue Accu-Cheks and sliding scale insulin (4) Hypothyroidism: Qualifiers: Hypothyroidism type: unspecified Qualified Code(s): E03.9 - Hypothyroidism, unspecified Code(s): E03.9 - Hypothyroidism, unspecified Status: Acute Assessment and Plan: Continue levothyroxine (5) DVT prophylaxis: Code(s): Z29.9 - Encounter for prophylactic measures, unspecified Status: Acute Assessment and Plan: Continue Lovenox (6) UTI (urinary tract infection): Code(s): N39.0 - Urinary tract infection, site not specified Status: Acute Assessment and Plan: UA shows UTI, -urine cultures growing group B strep from 03/24 -continue Levaquin as patient is allergic to penicillins and cephalexin (7) Dietary counseling and surveillance: Code(s): Z71.3 - Dietary counseling and surveillance Status: Acute Assessment and Plan: Patient is tolerating tube feeds Continue MiraLax Stress ulcer prophylaxis: Protonix Additional Plan Code status: Full code Critical care time spent: 32 minutes This dictation may have been done utilizing a voice recognition system. Attempts have been made to correct errors. However, there may be uncorrected grammatical, spelling, and recognition errors present. Due to a high probability of clinically significant, life threatening deterioration, the patient required my highest level of preparedness to intervene emergently and I personally spent this critical care time directly and personally managing the patient. This critical care time included obtaining a history; examining the patient; pulse oximetry; ordering and review of studies; arranging urgent treatment with development of a management plan; evaluation of patient's response to treatment; frequent reassessment; and discussions with other providers. It was exclusive of separately billable procedures and treating other patients and teaching time. Please see Assessment and Plan section and the rest of the note for further information on patient assessment and treatment Subjective Date/time seen: 03/26/21 15:23 Interval history: Interval history: Reason for consult: Acute hypoxic respiratory failure, failed BiPAP COVID-19 pneumonia, unvaccinated patient 03/26/2021: No issues overnight, Patient is on CMV mode of ventilation, 65% FiO2, peep of 14. Urine output has been low, patie
--- NOTE | 2021-03-26 17:16 | PCFNICU ---
ICU Rounding Note: Pt current nutrition is Vital AF 1.2 running at 50mL/hr over 22 hours. Last recorded weight is 133 kg. Bowel Motility: No new BM reported. Labs Reviewed: hgb 11.1, hct 34.8, AST 44, ALT 42, GFR 56, BUN 48, Glu 284 Meds Noted: Skin: WNL Additional Notes: Pt remains on mechanical ventilation and tube feeding diet. RDN placed orders today (03/26/21) to switch Vital AF 1.5 to Vital AF 1.2 due to intolerance as evidenced by continuously high glucose levels. Vital AF 1.2 has less carbohydrates than 1.5 and should be better tolerated by pt. Current nutrition of tube feeding Vital AF 1.2 is running at 50mL/hr over 22 hours providing 1320kcal, 83g protein, and 892mL of water. Goal rate for Vital AF 1.2 is 60mL/hr over 22 hours and will provide 1584kcal, 99g of protein, 1071mL of water, meeting 72% of kcal needs and 80% of protein needs. Recommend increasing tube feeding goal rate to 70mL/hr to provide 1848kcal, 116g of protein, 1249mL of water, meeting 84% of kcal needs and 94% of protein needs. Agree with diet order at this time. Will continue to follow. Following daily in ICU rounds. Will monitor pt every T/F.
[2021-03-26 20:28] LABS: Glucose Point of Care 182 mg/dl (65-105)
[2021-03-26 23:39] LABS: Glucose Point of Care 198 mg/dl (65-105)
[2021-03-27] VITALS (38 sets, daily range): BP systolic 106–153; BP diastolic 36–60; PULSE 68–108; RESP 26–30; TEMP 35.9–37; O2SAT 89–98
[2021-03-27] MEDS: IPRATROPIUM BR 0.02% INH SOLN 0.5 MG/2.5 ML VIAL INHALATION ×4 (02:02→20:34)
[2021-03-27] MEDS: ALBUTEROL SULFATE NEB 2.5 MG/0.5 ML INH 5 MG INHALATION ×4 (02:02→20:34)
[2021-03-27] MEDS: CISATRACURIUM BESYLATE 200 MG in DEXTROSE 5% 80 ML 15.74 ML IV CONT ×2 (02:13→09:18)
[2021-03-27 05:17] LABS: Alveolar/Arterial O2 Gradient 209.6 mmHg; Carboxyhemoglobin 0.3 % THb (0-2.0); Device VENTILATOR; Fractional Inspired Oxygen 50 %; HCO3 ABG 29.3 mEq/l (22.0-26.0); Methemoglobin ABG 0.4 %THb (0-1.5); Modified Allen's Test Pass; Oxygen Content ABG 16.4 %vol (16.0-22.0); Oxygen Saturation ABG 96.4 % (95.0-100.0); Oxyhemoglobin 95.1 % THb (90.0-100.0); PO2 ABG 88.4 mmHg (80.0-100.0); PO2 FiO2 Ratio Arterial Blood 1.77 %; Reduced Hemoglobin 4.2 %THb (0-5.0); Site Drawn RIGHT RADIAL; Total Hemoglobin 12.2 g/dL (12.0-18.0); pH ABG 7.368 (7.350-7.450)
[2021-03-27 05:18] LABS: Arterial Blood Gas PEEP 12 cmH2O; Arterial Blood Gas Tidal Volume 400 ml; Arterial Blood Gas Vent Mode CMV; Arterial Blood Gas Ventilator rate 30 /MIN
[2021-03-27 05:21] LABS: Basophils Percent Auto 0.3 % (0.2-1.2); Eosinophils Absolute Auto 0.4 K/mm3 (0-0.3); Eosinophils Percent Auto 4.1 % (0-4.4); Hematocrit 35.7 % (37.0-47.0); Hemoglobin 11.1 g/dL (12.0-15.0); Immature Granulocyte Absolute 0.22 K/mm3 (0.00-0.031); Immature Granulocyte Percent A 2.1 % (0-0.5); Lymphocytes Absolute Auto 1.27 K/mm3 (0.9-3.2); Lymphocytes Percent Auto 12.4 % (18.3-44.2); Mean Corpuscular HGB Conc 31.1 g/dl (32-36); Mean Corpuscular Hemoglobin 27.9 pg (26-34); Mean Corpuscular Volume 89.7 fl (80-100); Mean Platelet Volume 12.3 fl (7.4-10.4); Monocytes Absolute Auto 0.9 K/mm3 (0.1-0.6); Monocytes Percent Auto 8.3 % (2.6-8.5); Neutrophils Absolute Auto 7.5 K/mm3 (1.3-6.7); Neutrophils Percent Auto 72.8 % (45.5-73.1); Platelet Count Result 154 k/mm3 (150-375); Red Blood Count 3.98 M/mm3 (4.2-5.4); Red Cell Distribution Width 15.3 % (11.5-14.5); White Blood Count 10.3 K/mm3 (4.5-10.0)
[2021-03-27 05:31] LABS: D Dimer 0.85 ug/mL (<0.48)
[2021-03-27 05:34] LABS: Alanine Aminotransferase 43 U/L (4-35); Albumin Level 2.4 g/dL (3.5-5.1); Alkaline Phosphatase 58 U/L (38-126); Anion Gap 1 mmol/L (8-16); Aspartate Amino Transferase 47 U/L (14-36); Bilirubin,Total 0.3 mg/dL (0.2-1.3); Blood Urea Nitrogen 47 mg/dL (7-17); CRP 0.5 mg/dL (<1.0); Calcium 8.4 mg/dL (8.4-10.2); Carbon Dioxide 31 mmol/L (22-30); Chloride 110 mmol/L (98-107); Creatine Kinase 431 U/L (30-135); Estimated CRCL calculation 72 ml/min; Estimated Glomerular Filt Rate 56; Glucose 159 mg/dL (65-110); Lactate Dehydrogenase 754 U/L (313-618); Magnesium 2.5 mg/dL (1.6-2.3); Phosphorus 2.6 mg/dL (2.5-4.5); Potassium 4.1 mmol/L (3.4-5.0); Sodium 142 mmol/L (137-145)
[2021-03-27] MEDS: CENTRAL LINE FLUSH 10 ML IV PUSH ×3 (06:04→21:26)
[2021-03-27] MEDS: LEVOTHYROXINE SODIUM 100 MCG TABLET PO (06:04)
[2021-03-27] MEDS: ASPIRIN 325 MG TABLET PO (08:57)
[2021-03-27] MEDS: PANTOPRAZOLE SODIUM IV 40 MG VIAL IV PUSH ×2 (08:57→21:25)
[2021-03-27] MEDS: ENOXAPARIN 40 MG/0.4 ML SYRINGE SUB-Q ×2 (08:57→21:25)
[2021-03-27] MEDS: polyethylene glycoL 3350 17 GM POWD.PACK PO (08:57)
[2021-03-27] MEDS: MINERAL OIL/WHITE PETROLATUM OINTMENT 1 APPLIC EACH EYE ×2 (08:58→21:25)
[2021-03-27] MEDS: BUDESONIDE RESPULE NEB 0.5 MG/2 ML AMP INHALATION ×2 (09:06→20:34)
[2021-03-27] MEDS: FUROSEMIDE INJ 40 MG/4 ML VIAL IV PUSH (09:21)
[2021-03-27] MEDS: levoFLOXacin 500 MG/D5W 100 ML 500 MG/100 ML BAG 100 MG IVPB (09:22)
[2021-03-27] MEDS: INSULIN GLARGINE (*BKC) 100 UNITS/ML 20 UNITS SUB-Q (09:22)
[2021-03-27] MEDS: MIDAZOLAM 100MG/NS 100ML(*CRX) 100 MG/100 ML BAG IV CONT (09:36)
[2021-03-27] MEDS: ASCORBIC ACID 500 MG TABLET PO (11:09)
[2021-03-27] MEDS: CHOLECALCIFEROL 1,000 UNITS TABLET 1000 UNITS PO (11:09)
[2021-03-27 12:15] LABS: Glucose Point of Care 208 mg/dl (65-105)
[2021-03-27] MEDS: INSULIN ASPART (*BKC) 100 UNITS/ML SUB-Q ×3 (12:30→23:31)
--- NOTE | 2021-03-27 12:59 | WPDINTPN ---
Progress Note: A&P Assessment and Plan (1) Acute hypoxemic respiratory failure due to COVID-19: Code(s): U07.1 - COVID-19; J96.01 - Acute respiratory failure with hypoxia Status: Acute Assessment and Plan: Acute hypoxic respiratory failure likely related to COVID pneumonia, -patient up as she was on 100% FiO2, saturating in the mid 80s and tachypneic in the 40s, -intubated on 03/22/2021 -continue low tidal volume strategy, -chest x-ray and ABGs reviewed, currently on a PEEP of 12and FiO2 of 50%. Will wean FiO2 to maintain O2 sats greater than 92%, will also wean PEEP to 10 -will prone patient for 16-18 hours daily - continue bronchodilators and Pulmicort -sedated with fentanyl, Versed and Nimbex infusion for ventilator synchrony. Will wean Nimbex to off, add propofol infusion if needed for sedation (2) Pneumonia due to 2019 novel coronavirus: Code(s): U07.1 - COVID-19; J12.82 - Pneumonia due to coronavirus disease 2019 Status: Acute Assessment and Plan: Patient presented on 03/16 with shortness of breath, COVID positive, nausea, weakness and decreased appetite. Patient is unvaccinated dexamethasone completed today on 03/25 -status post remdesivir x5 days, will restart remdesivir for 5 more days (restarted on 03/22/2021) -received tocilizumab on 03/16/2021 -continue airborne, droplet and contact isolation/precautions -CRP normalized (3) Type 2 diabetes mellitus without complication, without long-term current use of insulin: Code(s): E11.9 - Type 2 diabetes mellitus without complications Status: Acute Assessment and Plan: Continue Accu-Cheks and sliding scale insulin (4) Hypothyroidism: Qualifiers: Hypothyroidism type: unspecified Qualified Code(s): E03.9 - Hypothyroidism, unspecified Code(s): E03.9 - Hypothyroidism, unspecified Status: Acute Assessment and Plan: Continue levothyroxine (5) DVT prophylaxis: Code(s): Z29.9 - Encounter for prophylactic measures, unspecified Status: Acute Assessment and Plan: Continue Lovenox (6) UTI (urinary tract infection): Code(s): N39.0 - Urinary tract infection, site not specified Status: Acute Assessment and Plan: UA shows UTI, -urine cultures growing group B strep from 03/24 -continue Levaquin as patient is allergic to penicillins and cephalexin (7) Dietary counseling and surveillance: Code(s): Z71.3 - Dietary counseling and surveillance Status: Acute Assessment and Plan: Patient is tolerating tube feeds Continue MiraLax Stress ulcer prophylaxis: Protonix Additional Plan Code status: Full code Critical care time spent: 32 minutes This dictation may have been done utilizing a voice recognition system. Attempts have been made to correct errors. However, there may be uncorrected grammatical, spelling, and recognition errors present. Due to a high probability of clinically significant, life threatening deterioration, the patient required my highest level of preparedness to intervene emergently and I personally spent this critical care time directly and personally managing the patient. This critical care time included obtaining a history; examining the patient; pulse oximetry; ordering and review of studies; arranging urgent treatment with development of a management plan; evaluation of patient's response to treatment; frequent reassessment; and discussions with other providers. It was exclusive of separately billable procedures and treating other patients and teaching time. Please see Assessment and Plan section and the rest of the note for further information on patient assessment and treatment Subjective Date/time seen: 03/27/21 12:59 Interval history: Interval history: Reason for consult: Acute hypoxic respiratory failure, failed BiPAP COVID-19 pneumonia, unvaccinated patient 03/27/2021: No issues overnight, Patient is on CMV mode
--- NOTE | 2021-03-27 13:04 | PCFNICU ---
ICU Rounding Note: Pt current nutrition is Vital AF 1.2 running at 65mL/hr over 22 hours Last recorded weight is 133 kg. Bowel Motility: No new BM reported, hypoactive bowel sounds, Miralax was started 03/26/21 Labs Reviewed: hgb 11.1, hct 35.7, alb 2.4, Cl 110, CO2 31, GFR 56, BUN 47, AST 47, Glu 159, ALT 43, LDH 754, Creatine Kinase 431 Meds Noted: albuterol, vitamin C, budesonide, nimbex, lovenox, fentanyl, novolog, lantus, atrovent, levaquin, synthroid, versed, protonix, miralax, vitamin D Skin: WNL Additional Notes: Pt remains on mechanical ventilation and tube feeding of Vital AF 1.2 running at goal rate 65mL/hr over 22 hours providing 1716kcal, 107g or protein, and 1160mL of water, meeting 78% of kcal needs and 87% of protein needs. Per EMR, pt is tolerating tube feeding and rate. Agree with diet order at this time. Will continue to follow. Following daily in ICU rounds. Monitor patient's labs, medications, weight and oral intake every 3 days. .
[2021-03-27] MEDS: FENTANYL 2,500MCG/NS250ML(*CRX 2,500 MCG/250 ML BAG 17.5 MCG IV CONT (15:21)
[2021-03-27] MEDS: PROPOFOL IV EMULSION 100 ML 3.99 MG IV CONT (16:07)
[2021-03-27 18:06] LABS: Glucose Point of Care 201 mg/dl (65-105)
[2021-03-27 23:17] LABS: Glucose Point of Care 238 mg/dl (65-105)
[2021-03-28] VITALS (33 sets, daily range): BP systolic 99–122; BP diastolic 37–58; PULSE 79–116; RESP 30–32; TEMP 36.6–37.2; O2SAT 88–98
[2021-03-28] MEDS: IPRATROPIUM BR 0.02% INH SOLN 0.5 MG/2.5 ML VIAL INHALATION ×4 (02:23→20:00)
[2021-03-28] MEDS: ALBUTEROL SULFATE NEB 2.5 MG/0.5 ML INH 5 MG INHALATION ×4 (02:23→20:00)
[2021-03-28] MEDS: MIDAZOLAM 100MG/NS 100ML(*CRX) 100 MG/100 ML BAG 6 MG IV CONT ×2 (03:18→20:40)
[2021-03-28 04:16] LABS: Hematocrit 35.6 % (37.0-47.0); Hemoglobin 10.9 g/dL (12.0-15.0); Mean Corpuscular HGB Conc 30.6 g/dl (32-36); Mean Corpuscular Hemoglobin 28.3 pg (26-34); Mean Corpuscular Volume 92.5 fl (80-100); Platelet Count Result 135 k/mm3 (150-375); Red Blood Count 3.85 M/mm3 (4.2-5.4); Red Cell Distribution Width 15.9 % (11.5-14.5); White Blood Count 10.5 K/mm3 (4.5-10.0)
[2021-03-28 04:30] LABS: Alveolar/Arterial O2 Gradient 360.1 mmHg; Base Excess ABG 4.7 mEq/l (+/-2.0); Carboxyhemoglobin 0.3 % THb (0-2.0); Fractional Inspired Oxygen 70 %; HCO3 ABG 30.9 mEq/l (22.0-26.0); Methemoglobin ABG 0.4 %THb (0-1.5); Modified Allen's Test Pass; Oxygen Content ABG 16.1 %vol (16.0-22.0); Oxygen Saturation ABG 95.6 % (95.0-100.0); Oxyhemoglobin 94.7 % THb (90.0-100.0); PCO2 ABG 53.6 mmHg (35.0-45.0); PO2 ABG 81.4 mmHg (80.0-100.0); PO2 FiO2 Ratio Arterial Blood 1.16 %; Reduced Hemoglobin 4.6 %THb (0-5.0); Site Drawn LEFT RADIAL; pH ABG 7.379 (7.350-7.450)
[2021-03-28 04:31] LABS: Arterial Blood Gas PEEP 12 cmH2O; Arterial Blood Gas Tidal Volume 400 ml; Arterial Blood Gas Vent Mode CMV; Arterial Blood Gas Ventilator rate 30 /MIN; Device VENTILATOR
[2021-03-28 04:32] LABS: Anion Gap 4 mmol/L (8-16); Blood Urea Nitrogen 49 mg/dL (7-17); Calcium 8.5 mg/dL (8.4-10.2); Carbon Dioxide 32 mmol/L (22-30); Chloride 106 mmol/L (98-107); Estimated CRCL calculation 80 ml/min; Estimated Glomerular Filt Rate > 60; Glucose 238 mg/dL (65-110); Potassium 3.9 mmol/L (3.4-5.0); Sodium 142 mmol/L (137-145)
[2021-03-28] MEDS: FENTANYL 2,500MCG/NS250ML(*CRX 2,500 MCG/250 ML BAG 17.5 MCG IV CONT ×2 (04:48→20:09)
[2021-03-28 07:56] LABS: Glucose Point of Care 239 mg/dl (65-105)
[2021-03-28] MEDS: PROPOFOL IV EMULSION 100 ML 3.99 MG IV CONT (07:57)
[2021-03-28] MEDS: INSULIN ASPART (*BKC) 100 UNITS/ML SUB-Q ×3 (07:57→18:17)
[2021-03-28] MEDS: LEVOTHYROXINE SODIUM 100 MCG TABLET PO (07:59)
[2021-03-28] MEDS: CENTRAL LINE FLUSH 10 ML IV PUSH ×3 (07:59→23:55)
[2021-03-28] MEDS: ASPIRIN 325 MG TABLET PO (08:00)
[2021-03-28] MEDS: BUDESONIDE RESPULE NEB 0.5 MG/2 ML AMP INHALATION ×2 (08:47→20:00)
[2021-03-28] MEDS: ENOXAPARIN 40 MG/0.4 ML SYRINGE SUB-Q ×2 (09:22→23:55)
[2021-03-28] MEDS: ASCORBIC ACID 500 MG TABLET PO (09:22)
[2021-03-28] MEDS: CHOLECALCIFEROL 1,000 UNITS TABLET 1000 UNITS PO (09:22)
[2021-03-28] MEDS: MINERAL OIL/WHITE PETROLATUM OINTMENT 1 APPLIC EACH EYE ×2 (09:23→23:55)
[2021-03-28] MEDS: levoFLOXacin 500 MG/D5W 100 ML 500 MG/100 ML BAG 100 MG IVPB (09:23)
[2021-03-28] MEDS: INSULIN GLARGINE (*BKC) 100 UNITS/ML 8 UNITS SUB-Q (09:23)
[2021-03-28] MEDS: polyethylene glycoL 3350 17 GM POWD.PACK PO (09:24)
[2021-03-28] MEDS: PANTOPRAZOLE SODIUM IV 40 MG VIAL IV PUSH ×2 (09:24→23:55)
[2021-03-28 12:09] LABS: Glucose Point of Care 254 mg/dl (65-105)
--- NOTE | 2021-03-28 13:17 | WPDINTPN ---
Progress Note: A&P Assessment and Plan (1) Acute hypoxemic respiratory failure due to COVID-19: Code(s): U07.1 - COVID-19; J96.01 - Acute respiratory failure with hypoxia Status: Acute Assessment and Plan: Acute hypoxic respiratory failure likely related to COVID pneumonia, -patient up as she was on 100% FiO2, saturating in the mid 80s and tachypneic in the 40s, -intubated on 03/22/2021 -continue low tidal volume strategy, -chest x-ray this morning extensive COVID pneumonia, worsening on the left. Increased PEEP to 14 and currently on 100% FiO2. Will try to maintain O2 sats greater than 90% -will prone patient for 16-18 hours daily - continue bronchodilators and Pulmicort -sedated with fentanyl, Versed, propofol infusion -patient has been off Nimbex infusion since 03/27, will restart again today next on 03/28 (2) Pneumonia due to 2019 novel coronavirus: Code(s): U07.1 - COVID-19; J12.82 - Pneumonia due to coronavirus disease 2019 Status: Acute Assessment and Plan: Patient presented on 03/16 with shortness of breath, COVID positive, nausea, weakness and decreased appetite. Patient is unvaccinated dexamethasone completed today on 03/25 -status post 10 days Remdesivir -received tocilizumab on 03/16/2021 -continue airborne, droplet and contact isolation/precautions -CRP normalized (3) Type 2 diabetes mellitus without complication, without long-term current use of insulin: Code(s): E11.9 - Type 2 diabetes mellitus without complications Status: Acute Assessment and Plan: Continue Accu-Cheks and sliding scale insulin (4) Hypothyroidism: Qualifiers: Hypothyroidism type: unspecified Qualified Code(s): E03.9 - Hypothyroidism, unspecified Code(s): E03.9 - Hypothyroidism, unspecified Status: Acute Assessment and Plan: Continue levothyroxine (5) DVT prophylaxis: Code(s): Z29.9 - Encounter for prophylactic measures, unspecified Status: Acute Assessment and Plan: Continue Lovenox (6) UTI (urinary tract infection): Code(s): N39.0 - Urinary tract infection, site not specified Status: Acute Assessment and Plan: UA shows UTI, -urine cultures growing group B strep from 03/24 -continue Levaquin (initiated on 03/25), patient is allergic to penicillins and cephalexin (7) Dietary counseling and surveillance: Code(s): Z71.3 - Dietary counseling and surveillance Status: Acute Assessment and Plan: Patient is tolerating tube feeds Continue MiraLax Stress ulcer prophylaxis: Protonix Additional Plan Code status: Full code Critical care time spent: 34 minutes Discuss with Juno, patient's spouse and updated with patient's condition and plan of care. I discussed with him regarding having to go on 100% FiO2 on the breathing machine and a PEEP of 14. Despite which her oxygen saturation are in the upper 80s. I did tell him that she is critical and he is aware of that. This dictation may have been done utilizing a voice recognition system. Attempts have been made to correct errors. However, there may be uncorrected grammatical, spelling, and recognition errors present. Due to a high probability of clinically significant, life threatening deterioration, the patient required my highest level of preparedness to intervene emergently and I personally spent this critical care time directly and personally managing the patient. This critical care time included obtaining a history; examining the patient; pulse oximetry; ordering and review of studies; arranging urgent treatment with development of a management plan; evaluation of patient's response to treatment; frequent reassessment; and discussions with other providers. It was exclusive of separately billable procedures and treating other patients and teaching time. Please see Assessment and Plan section and the rest of the note for further information on satish
[2021-03-28] MEDS: ROCURONIUM BROMIDE 50 MG/5 ML VIAL (13:22)
[2021-03-28 14:00] LABS: Chloride Rand Ur 39 mmol/L (32-290); Chloride/Creatinine Rand Ur 54 (38-318); Creatinine Random Urine 72 mg/dL (20-275)
[2021-03-28] MEDS: FUROSEMIDE INJ 40 MG/4 ML VIAL IV PUSH (14:00)
--- NOTE | 2021-03-28 15:35 | PCNFU ---
Nutrition Follow-Up Complete: Inadequate oral intake related to COVID-19 and bipap dependence as evidenced by no documented oral intake for several days Goal: Patient to meet estimated nutritional needs. Pt is progressing towards goal Pt current nutrition is Vital AF 1.2 running at 65mL/hr over 22 hours Last recorded weight is 134 kg, up from 133kg reported 03/27/21. Bowel Motility: No new BM reported, Miralax starte 03/26 Labs Reviewed:hgb 10.9, hct 35.6, CO2 32, BUN 49, Glu 238 Meds Noted: albuterol, vitamin c, budesonide, lovenox, fentanyl, novolog, lantus, atrovent, levaquin, synthroid, versed, protonix, miralax, propofol, vitamin D Skin: WNL Additional Notes: Pt remains on mechanical ventilation and tube feeding of Vital AF 1.2 running at 65mL/hr over 22 hours will provide 1716kcal, 107g of protein, and 1160mL of water, meeting 87% of protein needs. Propofol running at 3.99mL/hr over 24 hours will provide an additional 105kcal of lipids. Total kcal provided is 1821kcal, meeting 83% of kcal needs. Nursing staff reports this am (03/28/21) that pt is tolerating tube feeding and rate. Agree with diet order. Will continue to follow. Follow daily in ICU rounds. Monitor every T/F
[2021-03-28 17:57] LABS: Glucose Point of Care 222 mg/dl (65-105)
[2021-03-29] VITALS (30 sets, daily range): BP systolic 100–129; BP diastolic 44–57; PULSE 72–92; RESP 30; TEMP 36.6–37.2; O2SAT 91–97
[2021-03-29 00:08] LABS: Glucose Point of Care 248 mg/dl (65-105)
[2021-03-29] MEDS: INSULIN ASPART (*BKC) 100 UNITS/ML SUB-Q ×4 (00:33→18:12)
[2021-03-29] MEDS: IPRATROPIUM BR 0.02% INH SOLN 0.5 MG/2.5 ML VIAL INHALATION ×4 (03:59→20:50)
[2021-03-29] MEDS: ALBUTEROL SULFATE NEB 2.5 MG/0.5 ML INH 5 MG INHALATION ×4 (03:59→20:50)
[2021-03-29 04:52] LABS: Hematocrit 34.6 % (37.0-47.0); Hemoglobin 10.7 g/dL (12.0-15.0); Mean Corpuscular HGB Conc 30.9 g/dl (32-36); Mean Corpuscular Hemoglobin 28.8 pg (26-34); Mean Corpuscular Volume 93.3 fl (80-100); Mean Platelet Volume 11.9 fl (7.4-10.4); Platelet Count Result 128 k/mm3 (150-375); Red Blood Count 3.71 M/mm3 (4.2-5.4); Red Cell Distribution Width 16.2 % (11.5-14.5); White Blood Count 11.1 K/mm3 (4.5-10.0)
[2021-03-29 05:05] LABS: D Dimer 0.96 ug/mL (<0.48)
[2021-03-29 05:08] LABS: Anion Gap 2 mmol/L (8-16); Blood Urea Nitrogen 41 mg/dL (7-17); CRP 5.1 mg/dL (<1.0); Calcium 8.7 mg/dL (8.4-10.2); Carbon Dioxide 35 mmol/L (22-30); Chloride 106 mmol/L (98-107); Estimated CRCL calculation 90 ml/min; Estimated Glomerular Filt Rate > 60; Glucose 240 mg/dL (65-110); Lactate Dehydrogenase 808 U/L (313-618); Sodium 143 mmol/L (137-145)
[2021-03-29 06:48] LABS: Alveolar/Arterial O2 Gradient 517.2 mmHg; Base Excess ABG 4.5 mEq/l (+/-2.0); Carboxyhemoglobin 0.3 % THb (0-2.0); Fractional Inspired Oxygen 100 %; HCO3 ABG 28.9 mEq/l (22.0-26.0); Methemoglobin ABG 0.5 %THb (0-1.5); Oxygen Content ABG 16.7 %vol (16.0-22.0); Oxygen Saturation ABG 99.1 % (95.0-100.0); Oxyhemoglobin 97.3 % THb (90.0-100.0); PCO2 ABG 42.5 mmHg (35.0-45.0); PO2 ABG 153.3 mmHg (80.0-100.0); PO2 FiO2 Ratio Arterial Blood 1.53 %; Reduced Hemoglobin 1.9 %THb (0-5.0); pH ABG 7.451 (7.350-7.450)
[2021-03-29 06:53] LABS: Modified Allen's Test Pass; Site Drawn RIGHT RADIAL
[2021-03-29 06:54] LABS: Device VENTILATOR
[2021-03-29] MEDS: CENTRAL LINE FLUSH 10 ML IV PUSH ×3 (07:25→21:26)
[2021-03-29 07:39] LABS: Glucose Point of Care 226 mg/dl (65-105)
[2021-03-29] MEDS: levoFLOXacin 500 MG/D5W 100 ML 500 MG/100 ML BAG 100 MG IVPB (08:29)
[2021-03-29] MEDS: ENOXAPARIN 40 MG/0.4 ML SYRINGE SUB-Q ×2 (08:29→21:25)
[2021-03-29] MEDS: ASCORBIC ACID 500 MG TABLET PO (08:29)
[2021-03-29] MEDS: CHOLECALCIFEROL 1,000 UNITS TABLET 1000 UNITS PO (08:29)
[2021-03-29] MEDS: polyethylene glycoL 3350 17 GM POWD.PACK PO (08:29)
[2021-03-29] MEDS: PANTOPRAZOLE SODIUM IV 40 MG VIAL IV PUSH ×2 (08:29→21:25)
[2021-03-29] MEDS: MINERAL OIL/WHITE PETROLATUM OINTMENT 1 APPLIC EACH EYE (08:29)
[2021-03-29] MEDS: ASPIRIN 325 MG TABLET PO (08:29)
[2021-03-29] MEDS: PROPOFOL IV EMULSION 100 ML 3.99 MG IV CONT (08:30)
[2021-03-29] MEDS: INSULIN GLARGINE (*BKC) 100 UNITS/ML 8 UNITS SUB-Q (08:30)
[2021-03-29] MEDS: BUDESONIDE RESPULE NEB 0.5 MG/2 ML AMP INHALATION ×2 (09:09→20:50)
[2021-03-29] MEDS: INSULIN GLARGINE (*BKC) 100 UNITS/ML 20 UNITS SUB-Q (10:52)
[2021-03-29] MEDS: FUROSEMIDE INJ 40 MG/4 ML VIAL IV PUSH (10:53)
[2021-03-29] MEDS: FENTANYL 2,500MCG/NS250ML(*CRX 2,500 MCG/250 ML BAG 17.5 MCG IV CONT (11:22)
[2021-03-29 12:25] LABS: Glucose Point of Care 202 mg/dl (65-105)
--- NOTE | 2021-03-29 12:50 | WPDINTPN ---
Progress Note: A&P Assessment and Plan (1) Acute hypoxemic respiratory failure due to COVID-19: Code(s): U07.1 - COVID-19; J96.01 - Acute respiratory failure with hypoxia Status: Acute Assessment and Plan: Acute hypoxic respiratory failure likely related to COVID pneumonia, -patient up as she was on 100% FiO2, saturating in the mid 80s and tachypneic in the 40s, -intubated on 03/22/2021 -continue low tidal volume strategy, -chest x-ray this morning stable chest x-ray with COVID pneumonia. Currently on a PEEP of 14 and 75% FiO2. Patient is peep responsive, will continue PEEP to 14 and see if we can wean off the FiO2 -will prone patient for 16-18 hours daily - continue bronchodilators and Pulmicort -sedated with fentanyl, Versed, propofol infusion -patient has been off Nimbex infusion since 03/27, will restart again today next on 03/28 (2) Pneumonia due to 2019 novel coronavirus: Code(s): U07.1 - COVID-19; J12.82 - Pneumonia due to coronavirus disease 2019 Status: Acute Assessment and Plan: Patient presented on 03/16 with shortness of breath, COVID positive, nausea, weakness and decreased appetite. Patient is unvaccinated dexamethasone completed today on 03/25 -status post 10 days Remdesivir -received tocilizumab on 03/16/2021 -continue airborne, droplet and contact isolation/precautions -CRP is increasing (3) Type 2 diabetes mellitus without complication, without long-term current use of insulin: Code(s): E11.9 - Type 2 diabetes mellitus without complications Status: Acute Assessment and Plan: Continue Accu-Cheks and sliding scale insulin -continue Lantus (4) Hypothyroidism: Qualifiers: Hypothyroidism type: unspecified Qualified Code(s): E03.9 - Hypothyroidism, unspecified Code(s): E03.9 - Hypothyroidism, unspecified Status: Acute Assessment and Plan: Continue levothyroxine (5) DVT prophylaxis: Code(s): Z29.9 - Encounter for prophylactic measures, unspecified Status: Acute Assessment and Plan: Continue Lovenox (6) UTI (urinary tract infection): Code(s): N39.0 - Urinary tract infection, site not specified Status: Acute Assessment and Plan: UA shows UTI, -urine cultures growing group B strep from 03/24 -continue Levaquin (initiated on 03/25), patient is allergic to penicillins and cephalexin (7) Dietary counseling and surveillance: Code(s): Z71.3 - Dietary counseling and surveillance Status: Acute Assessment and Plan: Patient is tolerating tube feeds Continue MiraLax Stress ulcer prophylaxis: Protonix Additional Plan Code status: Full code Critical care time spent: 32 minutes 03/28:Discussed with Erika, patient's daughter who connected me to 2 other siblings on the phone/conference call. I updated all 3 of them regarding patient's sudden decline in oxygen levels, increased ventilator support. Erika stated that patient's Juno is in the hospital with COVID-19 pneumonia. 03/28:Discuss with Juno, patient's spouse and updated with patient's condition and plan of care. I discussed with him regarding having to go on 100% FiO2 on the breathing machine and a PEEP of 14. Despite which her oxygen saturation are in the upper 80s. I did tell him that she is critical and he is aware of that. This dictation may have been done utilizing a voice recognition system. Attempts have been made to correct errors. However, there may be uncorrected grammatical, spelling, and recognition errors present. Due to a high probability of clinically significant, life threatening deterioration, the patient required my highest level of preparedness to intervene emergently and I personally spent this critical care time directly and personally managing the patient. This critical care time included obtaining a history; examining the patient; pulse oximetry; ordering and review of studies; arra
[2021-03-29] MEDS: MIDAZOLAM 100MG/NS 100ML(*CRX) 100 MG/100 ML BAG 6 MG IV CONT (13:59)
[2021-03-29] MEDS: BISACODYL 10 MG SUPPOSITORY RECTAL (17:30)
[2021-03-29 18:27] LABS: Glucose Point of Care 229 mg/dl (65-105)
[2021-03-30] VITALS (32 sets, daily range): BP systolic 105–137; BP diastolic 47–67; PULSE 66–119; RESP 23–30; TEMP 36.2–37.4; O2SAT 89–98
[2021-03-30] MEDS: INSULIN ASPART (*BKC) 100 UNITS/ML SUB-Q ×3 (00:21→23:45)
[2021-03-30] MEDS: FENTANYL 2,500MCG/NS250ML(*CRX 2,500 MCG/250 ML BAG 17.5 MCG IV CONT ×2 (00:22→15:13)
[2021-03-30 00:27] LABS: Glucose Point of Care 224 mg/dl (65-105)
[2021-03-30] MEDS: ALBUTEROL SULFATE NEB 2.5 MG/0.5 ML INH 5 MG INHALATION ×4 (03:36→20:29)
[2021-03-30] MEDS: IPRATROPIUM BR 0.02% INH SOLN 0.5 MG/2.5 ML VIAL INHALATION ×4 (03:37→20:29)
[2021-03-30 05:19] LABS: Alveolar/Arterial O2 Gradient 300.2 mmHg; Base Excess ABG 7.2 mEq/l (+/-2.0); Carboxyhemoglobin 0.3 % THb (0-2.0); Fractional Inspired Oxygen 70 %; HCO3 ABG 31.7 mEq/l (22.0-26.0); Methemoglobin ABG 0.2 %THb (0-1.5); Oxygen Content ABG 16.2 %vol (16.0-22.0); Oxygen Saturation ABG 99.1 % (95.0-100.0); Oxyhemoglobin 97.7 % THb (90.0-100.0); PCO2 ABG 44.4 mmHg (35.0-45.0); PO2 ABG 151.2 mmHg (80.0-100.0); PO2 FiO2 Ratio Arterial Blood 2.16 %; Reduced Hemoglobin 1.8 %THb (0-5.0); Total Hemoglobin 11.6 g/dL (12.0-18.0); pH ABG 7.471 (7.350-7.450)
[2021-03-30 05:20] LABS: Device VENTILATOR; Modified Allen's Test Pass; Site Drawn RIGHT RADIAL
[2021-03-30 05:22] LABS: Arterial Blood Gas PEEP 14 cmH2O; Arterial Blood Gas Tidal Volume 400 ml; Arterial Blood Gas Vent Mode CMV; Arterial Blood Gas Ventilator rate 30 /MIN
[2021-03-30] MEDS: CENTRAL LINE FLUSH 10 ML IV PUSH ×3 (05:33→23:45)
[2021-03-30] MEDS: LEVOTHYROXINE SODIUM 100 MCG TABLET PO (05:33)
[2021-03-30 05:34] LABS: Hematocrit 35.6 % (37.0-47.0); Hemoglobin 11.1 g/dL (12.0-15.0); Mean Corpuscular HGB Conc 31.2 g/dl (32-36); Mean Corpuscular Hemoglobin 28.5 pg (26-34); Mean Corpuscular Volume 91.3 fl (80-100); Mean Platelet Volume 12.2 fl (7.4-10.4); Platelet Count Result 141 k/mm3 (150-375); Red Cell Distribution Width 16.5 % (11.5-14.5)
[2021-03-30 05:40] LABS: Anion Gap 2 mmol/L (8-16); Blood Urea Nitrogen 39 mg/dL (7-17); Calcium 8.7 mg/dL (8.4-10.2); Carbon Dioxide 35 mmol/L (22-30); Chloride 106 mmol/L (98-107); Estimated CRCL calculation 117 ml/min; Estimated Glomerular Filt Rate > 60; Glucose 232 mg/dL (65-110); Potassium 3.5 mmol/L (3.4-5.0); Sodium 143 mmol/L (137-145)
[2021-03-30 06:34] LABS: Glucose Point of Care 228 mg/dl (65-105)
[2021-03-30] MEDS: MIDAZOLAM 100MG/NS 100ML(*CRX) 100 MG/100 ML BAG 6 MG IV CONT ×2 (07:20→23:53)
[2021-03-30] MEDS: levoFLOXacin 500 MG/D5W 100 ML 500 MG/100 ML BAG 100 MG IVPB (08:12)
[2021-03-30] MEDS: ASCORBIC ACID 500 MG TABLET PO (08:14)
[2021-03-30] MEDS: polyethylene glycoL 3350 17 GM POWD.PACK PO (08:14)
[2021-03-30] MEDS: ASPIRIN 325 MG TABLET PO (08:15)
[2021-03-30] MEDS: ENOXAPARIN 40 MG/0.4 ML SYRINGE SUB-Q ×2 (08:15→23:44)
[2021-03-30] MEDS: CHOLECALCIFEROL 1,000 UNITS TABLET 1000 UNITS PO (08:15)
[2021-03-30] MEDS: MINERAL OIL/WHITE PETROLATUM OINTMENT 1 APPLIC EACH EYE ×2 (08:16→23:45)
[2021-03-30] MEDS: INSULIN GLARGINE (*BKC) 100 UNITS/ML 35 UNITS SUB-Q (08:16)
[2021-03-30] MEDS: PANTOPRAZOLE SODIUM IV 40 MG VIAL IV PUSH ×2 (08:16→23:45)
[2021-03-30] MEDS: BUDESONIDE RESPULE NEB 0.5 MG/2 ML AMP INHALATION ×2 (08:19→20:29)
[2021-03-30] MEDS: PROPOFOL IV EMULSION 100 ML 3.99 MG IV CONT (08:57)
--- NOTE | 2021-03-30 09:48 | WPDINTPN ---
Progress Note: A&P Assessment and Plan (1) Acute hypoxemic respiratory failure due to COVID-19: Code(s): U07.1 - COVID-19; J96.01 - Acute respiratory failure with hypoxia Status: Acute Assessment and Plan: Acute hypoxic respiratory failure likely related to COVID pneumonia, -patient up as she was on 100% FiO2, saturating in the mid 80s and tachypneic in the 40s, -intubated on 03/22/2021 -continue low tidal volume strategy, - Currently on a PEEP of 12 and 70% FiO2. ABG showed PO2 151, will decrease PEEP to 12 and continue to wean FiO2 to maintain O2 sats greater than 90% -continue to prone patient for 16-18 hours daily - continue bronchodilators and Pulmicort -sedated with fentanyl, Versed, propofol infusion -patient has been off Nimbex infusion since 03/27, (2) Pneumonia due to 2019 novel coronavirus: Code(s): U07.1 - COVID-19; J12.82 - Pneumonia due to coronavirus disease 2019 Status: Acute Assessment and Plan: Patient presented on 03/16 with shortness of breath, COVID positive, nausea, weakness and decreased appetite. Patient is unvaccinated dexamethasone completed today on 03/25 -status post 10 days Remdesivir -received tocilizumab on 03/16/2021 -continue airborne, droplet and contact isolation/precautions -CRP is increasing (3) Type 2 diabetes mellitus without complication, without long-term current use of insulin: Code(s): E11.9 - Type 2 diabetes mellitus without complications Status: Acute Assessment and Plan: Continue Accu-Cheks and sliding scale insulin -increase Lantus (4) Hypothyroidism: Qualifiers: Hypothyroidism type: unspecified Qualified Code(s): E03.9 - Hypothyroidism, unspecified Code(s): E03.9 - Hypothyroidism, unspecified Status: Acute Assessment and Plan: Continue levothyroxine (5) DVT prophylaxis: Code(s): Z29.9 - Encounter for prophylactic measures, unspecified Status: Acute Assessment and Plan: Continue Lovenox (6) UTI (urinary tract infection): Code(s): N39.0 - Urinary tract infection, site not specified Status: Acute Assessment and Plan: UA shows UTI, -urine cultures growing group B strep from 12/27 -continue Levaquin (initiated on 03/25), patient is allergic to penicillins and cephalexin (7) Dietary counseling and surveillance: Code(s): Z71.3 - Dietary counseling and surveillance Status: Acute Assessment and Plan: Patient is tolerating tube feeds, positive bowel movement on 03/30/2021 Continue MiraLax Stress ulcer prophylaxis: Protonix Additional Plan Code status: Full code Critical care time spent: 32 minutes 03/28:Discussed with Erika, patient's daughter who connected me to 2 other siblings on the phone/conference call. I updated all 3 of them regarding patient's sudden decline in oxygen levels, increased ventilator support. Erika stated that patient's Juno is in the hospital with COVID-19 pneumonia. 03/28:Discuss with Juno, patient's spouse and updated with patient's condition and plan of care. I discussed with him regarding having to go on 100% FiO2 on the breathing machine and a PEEP of 14. Despite which her oxygen saturation are in the upper 80s. I did tell him that she is critical and he is aware of that. This dictation may have been done utilizing a voice recognition system. Attempts have been made to correct errors. However, there may be uncorrected grammatical, spelling, and recognition errors present. Due to a high probability of clinically significant, life threatening deterioration, the patient required my highest level of preparedness to intervene emergently and I personally spent this critical care time directly and personally managing the patient. This critical care time included obtaining a history; examining the patient; pulse oximetry; ordering and review of studies; arranging urgent treatment with developmen
[2021-03-30 11:38] LABS: Glucose Point of Care 170 mg/dl (65-105)
[2021-03-30 17:48] LABS: Glucose Point of Care 193 mg/dl (65-105)
[2021-03-30] MEDS: PROPOFOL IV EMULSION 100 ML 7.98 MG IV CONT (23:50)
[2021-03-31] VITALS (31 sets, daily range): BP systolic 91–135; BP diastolic 42–68; PULSE 67–97; RESP 30; TEMP 36.7–37; O2SAT 92–98
[2021-03-31 00:09] LABS: Glucose Point of Care 221 mg/dl (65-105)
[2021-03-31] MEDS: ALBUTEROL SULFATE NEB 2.5 MG/0.5 ML INH 5 MG INHALATION ×4 (01:11→20:29)
[2021-03-31] MEDS: IPRATROPIUM BR 0.02% INH SOLN 0.5 MG/2.5 ML VIAL INHALATION ×4 (01:12→20:29)
[2021-03-31 04:00] LABS: Hemoglobin 11.5 g/dL (12.0-15.0); Mean Corpuscular HGB Conc 31.1 g/dl (32-36); Mean Corpuscular Hemoglobin 28.5 pg (26-34); Mean Corpuscular Volume 91.6 fl (80-100); Mean Platelet Volume 11.9 fl (7.4-10.4); Platelet Count Result 158 k/mm3 (150-375); Red Blood Count 4.04 M/mm3 (4.2-5.4); White Blood Count 9.1 K/mm3 (4.5-10.0)
[2021-03-31 04:17] LABS: D Dimer 0.94 ug/mL (<0.48)
[2021-03-31 04:19] LABS: Alanine Aminotransferase 76 U/L (4-35); Albumin Level 2.6 g/dL (3.5-5.1); Alkaline Phosphatase 70 U/L (38-126); Anion Gap 4 mmol/L (8-16); Aspartate Amino Transferase 52 U/L (14-36); Bilirubin,Total 0.5 mg/dL (0.2-1.3); Blood Urea Nitrogen 36 mg/dL (7-17); CRP 3.1 mg/dL (<1.0); Calcium 9.1 mg/dL (8.4-10.2); Carbon Dioxide 35 mmol/L (22-30); Chloride 106 mmol/L (98-107); Estimated CRCL calculation 117 ml/min; Estimated Glomerular Filt Rate > 60; Glucose 188 mg/dL (65-110); Lactate Dehydrogenase 798 U/L (313-618); Magnesium 2.2 mg/dL (1.6-2.3); Phosphorus 3.8 mg/dL (2.5-4.5); Sodium 145 mmol/L (137-145)
[2021-03-31] MEDS: CENTRAL LINE FLUSH 10 ML IV PUSH ×3 (05:22→21:10)
[2021-03-31] MEDS: LEVOTHYROXINE SODIUM 100 MCG TABLET PO (05:22)
[2021-03-31] MEDS: FENTANYL 2,500MCG/NS250ML(*CRX 2,500 MCG/250 ML BAG 17.5 MCG IV CONT ×2 (05:42→21:10)
[2021-03-31 06:27] LABS: Alveolar/Arterial O2 Gradient 441.1 mmHg; Base Excess ABG 7.1 mEq/l (+/-2.0); Carboxyhemoglobin 0.1 % THb (0-2.0); Fractional Inspired Oxygen 80 %; HCO3 ABG 32.7 mEq/l (22.0-26.0); Methemoglobin ABG 0.3 %THb (0-1.5); Oxygen Content ABG 18.5 %vol (16.0-22.0); Oxygen Saturation ABG 95.5 % (95.0-100.0); Oxyhemoglobin 94.7 % THb (90.0-100.0); PCO2 ABG 50.1 mmHg (35.0-45.0); PO2 ABG 76.7 mmHg (80.0-100.0); PO2 FiO2 Ratio Arterial Blood 0.96 %; Reduced Hemoglobin 4.9 %THb (0-5.0); Total Hemoglobin 13.9 g/dL (12.0-18.0); pH ABG 7.433 (7.350-7.450)
[2021-03-31 07:56] LABS: Arterial Blood Gas PEEP 12 cmH2O; Arterial Blood Gas Tidal Volume 400 ml; Arterial Blood Gas Vent Mode CMV; Arterial Blood Gas Ventilator rate 30 /MIN; Device VENTILATOR
[2021-03-31] MEDS: BUDESONIDE RESPULE NEB 0.5 MG/2 ML AMP INHALATION ×2 (08:15→20:29)
[2021-03-31] MEDS: ASCORBIC ACID 500 MG TABLET PO (09:17)
[2021-03-31] MEDS: ASPIRIN 325 MG TABLET PO (09:17)
[2021-03-31] MEDS: CHOLECALCIFEROL 1,000 UNITS TABLET 1000 UNITS PO (09:17)
[2021-03-31] MEDS: ENOXAPARIN 40 MG/0.4 ML SYRINGE SUB-Q ×2 (09:17→21:09)
[2021-03-31] MEDS: INSULIN GLARGINE (*BKC) 100 UNITS/ML 35 UNITS SUB-Q (09:18)
[2021-03-31] MEDS: levoFLOXacin 500 MG/D5W 100 ML 500 MG/100 ML BAG 100 MG IVPB (09:18)
[2021-03-31] MEDS: MINERAL OIL/WHITE PETROLATUM OINTMENT 1 APPLIC EACH EYE ×2 (09:27→21:09)
[2021-03-31] MEDS: PANTOPRAZOLE SODIUM IV 40 MG VIAL IV PUSH ×2 (09:27→21:09)
[2021-03-31] MEDS: PROPOFOL IV EMULSION 100 ML 7.98 MG IV CONT ×2 (09:28→21:12)
[2021-03-31 11:48] LABS: Glucose Point of Care 217 mg/dl (65-105)
--- NOTE | 2021-03-31 11:52 | PCFNICU ---
ICU Rounding Note: Pt current nutrition is Vital AF 1.2 at 65 ml/hr over 22 hours. Last recorded weight is 133.5 kg, down from 137.2 kg on admit. Bowel Motility:+BM reported 1/3 Labs Reviewed:Glu 188, BUN 36, Cr 0.6,Alb 2.6 Meds Noted:Propofol 10 brys=221 kcals, Vit D, Versed, Vit C, Lantus, Fentanyl, Lovenox, Atrovent, Protonix, Synthroid, NovoLog. Skin: WNL Additional Notes: Patient remains on mechanical vent and tube feedings of Vital AF 1.2 at 65 ml/hr over 22 hours and tolerating. 30 ml free water flush. Agree with diet orders. Following daily in ICU rounds. Monitor patient's labs, medications, weight every Wednesday and Wednesday.
[2021-03-31] MEDS: INSULIN ASPART (*BKC) 100 UNITS/ML SUB-Q (12:04)
--- NOTE | 2021-03-31 12:36 | WPDINTPN ---
Progress Note: A&P Assessment and Plan (1) Acute hypoxemic respiratory failure due to COVID-19: Code(s): U07.1 - COVID-19; J96.01 - Acute respiratory failure with hypoxia Status: Acute Assessment and Plan: Acute hypoxic respiratory failure likely related to COVID pneumonia, -patient up as she was on 100% FiO2, saturating in the mid 80s and tachypneic in the 40s, -intubated on 03/22/2021 -continue low tidal volume strategy, - Currently on a PEEP of 12 and 85% FiO2 which was increased after patient was cleaned, will wean FiO2 to maintain O2 sats greater than 90% -continue to prone patient for 16-18 hours daily - continue bronchodilators and Pulmicort -sedated with fentanyl, Versed, propofol infusion -patient has been off Nimbex infusion since 03/27, (2) Pneumonia due to 2019 novel coronavirus: Code(s): U07.1 - COVID-19; J12.82 - Pneumonia due to coronavirus disease 2019 Status: Acute Assessment and Plan: Patient presented on 03/16 with shortness of breath, COVID positive, nausea, weakness and decreased appetite. Patient is unvaccinated dexamethasone completed today on 03/25 -status post 10 days Remdesivir -received tocilizumab on 03/16/2021 -continue airborne, droplet and contact isolation/precautions -CRP is increasing (3) Type 2 diabetes mellitus without complication, without long-term current use of insulin: Code(s): E11.9 - Type 2 diabetes mellitus without complications Status: Acute Assessment and Plan: Continue Accu-Cheks and sliding scale insulin -increase Lantus (4) Hypothyroidism: Qualifiers: Hypothyroidism type: unspecified Qualified Code(s): E03.9 - Hypothyroidism, unspecified Code(s): E03.9 - Hypothyroidism, unspecified Status: Acute Assessment and Plan: Continue levothyroxine (5) DVT prophylaxis: Code(s): Z29.9 - Encounter for prophylactic measures, unspecified Status: Acute Assessment and Plan: Continue Lovenox (6) UTI (urinary tract infection): Code(s): N39.0 - Urinary tract infection, site not specified Status: Acute Assessment and Plan: UA shows UTI, -urine cultures growing group B strep from 03/24 -continue Levaquin (initiated on 03/25) for a total of 7 days, patient is allergic to penicillins and cephalexin (7) Dietary counseling and surveillance: Code(s): Z71.3 - Dietary counseling and surveillance Status: Acute Assessment and Plan: Patient is tolerating tube feeds, positive bowel movement on 03/30/2021 Continue MiraLax Stress ulcer prophylaxis: Protonix Additional Plan Code status: Full code Critical care time spent: 32 minutes 03/28:Discussed with Erika, patient's daughter who connected me to 2 other siblings on the phone/conference call. I updated all 3 of them regarding patient's sudden decline in oxygen levels, increased ventilator support. Erika stated that patient's Juno is in the hospital with COVID-19 pneumonia. 03/28:Discuss with Juno, patient's spouse and updated with patient's condition and plan of care. I discussed with him regarding having to go on 100% FiO2 on the breathing machine and a PEEP of 14. Despite which her oxygen saturation are in the upper 80s. I did tell him that she is critical and he is aware of that. This dictation may have been done utilizing a voice recognition system. Attempts have been made to correct errors. However, there may be uncorrected grammatical, spelling, and recognition errors present. Due to a high probability of clinically significant, life threatening deterioration, the patient required my highest level of preparedness to intervene emergently and I personally spent this critical care time directly and personally managing the patient. This critical care time included obtaining a history; examining the patient; pulse oximetry; ordering and review of studies; arranging urgent treatment with
[2021-03-31] MEDS: MIDAZOLAM 100MG/NS 100ML(*CRX) 100 MG/100 ML BAG 6 MG IV CONT (16:49)
[2021-03-31 17:46] LABS: Glucose Point of Care 178 mg/dl (65-105)
[2021-04-01] VITALS (32 sets, daily range): BP systolic 95–135; BP diastolic 42–68; PULSE 77–115; RESP 30–38; TEMP 36.3–37.1; O2SAT 90–98
[2021-04-01 01:06] LABS: Glucose Point of Care 184 mg/dl (65-105)
[2021-04-01] MEDS: IPRATROPIUM BR 0.02% INH SOLN 0.5 MG/2.5 ML VIAL INHALATION ×4 (02:26→21:59)
[2021-04-01] MEDS: ALBUTEROL SULFATE NEB 2.5 MG/0.5 ML INH 5 MG INHALATION ×4 (02:26→21:58)
[2021-04-01 04:27] LABS: Hematocrit 37.2 % (37.0-47.0); Hemoglobin 11.4 g/dL (12.0-15.0); Mean Corpuscular HGB Conc 30.6 g/dl (32-36); Mean Corpuscular Hemoglobin 28.8 pg (26-34); Mean Corpuscular Volume 93.9 fl (80-100); Mean Platelet Volume 11.2 fl (7.4-10.4); Platelet Count Result 137 k/mm3 (150-375); Red Blood Count 3.96 M/mm3 (4.2-5.4); Red Cell Distribution Width 17.2 % (11.5-14.5); White Blood Count 7.4 K/mm3 (4.5-10.0)
[2021-04-01 04:46] LABS: Alanine Aminotransferase 70 U/L (4-35); Albumin Level 2.7 g/dL (3.5-5.1); Alkaline Phosphatase 68 U/L (38-126); Anion Gap 3 mmol/L (8-16); Aspartate Amino Transferase 45 U/L (14-36); Bilirubin,Total 0.4 mg/dL (0.2-1.3); Blood Urea Nitrogen 33 mg/dL (7-17); Calcium 9.1 mg/dL (8.4-10.2); Carbon Dioxide 35 mmol/L (22-30); Chloride 106 mmol/L (98-107); Estimated CRCL calculation 116 ml/min; Estimated Glomerular Filt Rate > 60; Glucose 185 mg/dL (65-110); Magnesium 2.1 mg/dL (1.6-2.3); Phosphorus 4.2 mg/dL (2.5-4.5); Potassium 3.8 mmol/L (3.4-5.0); Sodium 144 mmol/L (137-145)
[2021-04-01] MEDS: CENTRAL LINE FLUSH 10 ML IV PUSH ×3 (04:55→22:00)
[2021-04-01] MEDS: LEVOTHYROXINE SODIUM 100 MCG TABLET PO (04:55)
[2021-04-01 05:01] LABS: Glucose Point of Care 182 mg/dl (65-105)
[2021-04-01] MEDS: PROPOFOL IV EMULSION 100 ML 7.98 MG IV CONT ×2 (08:12→17:31)
[2021-04-01] MEDS: MIDAZOLAM 100MG/NS 100ML(*CRX) 100 MG/100 ML BAG 6 MG IV CONT (08:16)
[2021-04-01] MEDS: FENTANYL 2,500MCG/NS250ML(*CRX 2,500 MCG/250 ML BAG 17.5 MCG IV CONT ×2 (08:18→22:41)
[2021-04-01] MEDS: polyethylene glycoL 3350 17 GM POWD.PACK PO (08:21)
[2021-04-01] MEDS: ENOXAPARIN 40 MG/0.4 ML SYRINGE SUB-Q ×2 (08:21→20:46)
[2021-04-01] MEDS: PANTOPRAZOLE SODIUM IV 40 MG VIAL IV PUSH ×2 (08:21→20:46)
[2021-04-01] MEDS: ASPIRIN 325 MG TABLET PO (08:21)
[2021-04-01] MEDS: MINERAL OIL/WHITE PETROLATUM OINTMENT 1 APPLIC EACH EYE ×2 (08:21→20:46)
[2021-04-01] MEDS: ASCORBIC ACID 500 MG TABLET PO (08:21)
[2021-04-01] MEDS: CHOLECALCIFEROL 1,000 UNITS TABLET 1000 UNITS PO (08:21)
[2021-04-01] MEDS: levoFLOXacin 500 MG/D5W 100 ML 500 MG/100 ML BAG 100 MG IVPB (08:26)
[2021-04-01] MEDS: INSULIN GLARGINE (*BKC) 100 UNITS/ML 35 UNITS SUB-Q (08:26)
[2021-04-01] MEDS: BUDESONIDE RESPULE NEB 0.5 MG/2 ML AMP INHALATION ×2 (08:35→21:58)
--- NOTE | 2021-04-01 09:05 | PM.IMPN ---
Progress Note: A&P Assessment and Plan (1) Acute hypoxemic respiratory failure due to COVID-19: Code(s): U07.1 - COVID-19; J96.01 - Acute respiratory failure with hypoxia Status: Acute Assessment and Plan: Acute hypoxic respiratory failure likely related to COVID pneumonia, -patient up as she was on 100% FiO2, saturating in the mid 80s and tachypneic in the 40s, -intubated on 03/22/2021 -continue low tidal volume strategy, - Currently on a PEEP of 12 and 85% FiO2 which was increased after patient was cleaned, will wean FiO2 to maintain O2 sats greater than 90% -continue to prone patient for 16-18 hours daily - continue bronchodilators and Pulmicort -sedated with fentanyl, Versed, propofol infusion -patient has been off Nimbex infusion since 03/27, (2) Pneumonia due to 2019 novel coronavirus: Code(s): U07.1 - COVID-19; J12.82 - Pneumonia due to coronavirus disease 2019 Status: Acute Assessment and Plan: Patient presented on 03/16 with shortness of breath, COVID positive, nausea, weakness and decreased appetite. Patient is unvaccinated dexamethasone completed today on 03/25 -status post 10 days Remdesivir -received tocilizumab on 03/16/2021 -continue airborne, droplet and contact isolation/precautions -CRP is increasing (3) Type 2 diabetes mellitus without complication, without long-term current use of insulin: Code(s): E11.9 - Type 2 diabetes mellitus without complications Status: Acute Assessment and Plan: Continue Accu-Cheks and sliding scale insulin -increase Lantus. -fasting blood glucose is 185. Accu-Chek in the 151-184 range. (4) Hypothyroidism: Qualifiers: Hypothyroidism type: unspecified Qualified Code(s): E03.9 - Hypothyroidism, unspecified Code(s): E03.9 - Hypothyroidism, unspecified Status: Acute Assessment and Plan: Continue levothyroxine (5) DVT prophylaxis: Code(s): Z29.9 - Encounter for prophylactic measures, unspecified Status: Acute Assessment and Plan: Continue Lovenox (6) UTI (urinary tract infection): Code(s): N39.0 - Urinary tract infection, site not specified Status: Acute Assessment and Plan: UA shows UTI, -urine cultures growing group B strep from 03/24 -continue Levaquin (initiated on 03/25) for a total of 7 days, patient is allergic to penicillins and cephalexin (7) Dietary counseling and surveillance: Code(s): Z71.3 - Dietary counseling and surveillance Status: Acute Assessment and Plan: Patient is tolerating tube feeds, positive bowel movement on 03/30/2021 Continue MiraLax Stress ulcer prophylaxis: Protonix Additional Plan Code status: Full code Critical care time spent: 32 minutes This dictation may have been done utilizing a voice recognition system. Attempts have been made to correct errors. However, there may be uncorrected grammatical, spelling, and recognition errors present. Due to a high probability of clinically significant, life threatening deterioration, the patient required my highest level of preparedness to intervene emergently and I personally spent this critical care time directly and personally managing the patient. This critical care time included obtaining a history; examining the patient; pulse oximetry; ordering and review of studies; arranging urgent treatment with development of a management plan; evaluation of patient's response to treatment; frequent reassessment; and discussions with other providers. It was exclusive of separately billable procedures and treating other patients and teaching time. Please see Assessment and Plan section and the rest of the note for further information on patient assessment and treatment Subjective Date/time seen: 04/01/21 07:53 S: Patient was seen and examined at the bedside. She is intubated, on mechanical is a ventilation and sedated on paralytics. Blood pressure running in the 11
[2021-04-01] MEDS: BUMETANIDE INJ 1 MG/4 ML VIAL IV PUSH (10:33)
--- NOTE | 2021-04-01 11:52 | PCNFU ---
Nutrition Follow-Up Complete: Inadequate oral intake related to COVID-19 and bipap dependence as evidenced by no documented oral intake for several days Goal: Patient to meet estimated nutritional needs. We will continue current goal. Pt current nutrition is Vital AF 1.2 at 65 ml/hr over 22hours. Last recorded weight is 140.5 kg0-stable Bowel Motility:+BM reported 1/3 Labs Reviewed:Glu 185, Cr 0.6,BUN 33, Alb 2.7, Hgb 11.4 Meds Noted:Vit D, Versed, Fentanyl, Bumex, Vit C, Lovenox, Lantus, Atrovent, Protonix, Synthroid, Miralax, Levaquin. Propofol 10 ilfw=317 kcals. Skin: WNL Additional Notes: Patient remains on mechanical vent and tube feedings of Vital AF 1.2 at 65 ml/hr over 22 hours, providing 1716 kcals/107 gms protein/1160 ml water. Additional 211 kcals from propofol. Will continue to monitor propofol titration for possible adjustments to tube feeding rate. Free water flush 30 ml q 4 hours. Agree with diet orders. Monitor patient's labs, medications, weight and oral intake every 3 days.
[2021-04-01 11:55] LABS: Glucose Point of Care 151 mg/dl (65-105)
--- NOTE | 2021-04-01 13:16 | WPDINTPN ---
Progress Note: A&P Assessment and Plan (1) Acute hypoxemic respiratory failure due to COVID-19: Code(s): U07.1 - COVID-19; J96.01 - Acute respiratory failure with hypoxia Status: Acute Assessment and Plan: Acute hypoxic respiratory failure likely related to COVID pneumonia, -patient up as she was on 100% FiO2, saturating in the mid 80s and tachypneic in the 40s, -intubated on 03/22/2021 -continue low tidal volume strategy, - Currently on a PEEP of 12 and 80 % FiO2 which was increased after patient was cleaned, will wean FiO2 to maintain O2 sats greater than 90% -continue to prone patient for 16-18 hours daily - continue bronchodilators and Pulmicort -sedated with fentanyl, Versed, propofol infusion -patient has been off Nimbex infusion since 03/27, -blood pressures have been stable, will diurese patient (2) Pneumonia due to 2019 novel coronavirus: Code(s): U07.1 - COVID-19; J12.82 - Pneumonia due to coronavirus disease 2019 Status: Acute Assessment and Plan: Patient presented on 03/16 with shortness of breath, COVID positive, nausea, weakness and decreased appetite. Patient is unvaccinated dexamethasone completed today on 03/25 -status post 10 days Remdesivir -received tocilizumab on 03/16/2021 -continue airborne, droplet and contact isolation/precautions -CRP is increasing (3) Type 2 diabetes mellitus without complication, without long-term current use of insulin: Code(s): E11.9 - Type 2 diabetes mellitus without complications Status: Acute Assessment and Plan: Continue Accu-Cheks and sliding scale insulin -continue Lantus (4) Hypothyroidism: Qualifiers: Hypothyroidism type: unspecified Qualified Code(s): E03.9 - Hypothyroidism, unspecified Code(s): E03.9 - Hypothyroidism, unspecified Status: Acute Assessment and Plan: Continue levothyroxine (5) DVT prophylaxis: Code(s): Z29.9 - Encounter for prophylactic measures, unspecified Status: Acute Assessment and Plan: Continue Lovenox (6) UTI (urinary tract infection): Code(s): N39.0 - Urinary tract infection, site not specified Status: Acute Assessment and Plan: UA shows UTI, -urine cultures growing group B strep from 03/24 -continue Levaquin (initiated on 03/25) for a total of 7 days, patient is allergic to penicillins and cephalexin (7) Dietary counseling and surveillance: Code(s): Z71.3 - Dietary counseling and surveillance Status: Acute Assessment and Plan: Patient is tolerating tube feeds, positive bowel movement this morning Continue MiraLax Stress ulcer prophylaxis: Protonix Additional Plan Code status: Full code Critical care time spent: 32 minutes This dictation may have been done utilizing a voice recognition system. Attempts have been made to correct errors. However, there may be uncorrected grammatical, spelling, and recognition errors present. Due to a high probability of clinically significant, life threatening deterioration, the patient required my highest level of preparedness to intervene emergently and I personally spent this critical care time directly and personally managing the patient. This critical care time included obtaining a history; examining the patient; pulse oximetry; ordering and review of studies; arranging urgent treatment with development of a management plan; evaluation of patient's response to treatment; frequent reassessment; and discussions with other providers. It was exclusive of separately billable procedures and treating other patients and teaching time. Please see Assessment and Plan section and the rest of the note for further information on patient assessment and treatment Subjective Date/time seen: 04/01/21 13:16 Interval history: Interval history: Reason for consult: Acute hypoxic respiratory failure, failed BiPAP COVID-19 pneumonia, unvaccinated patient 04/01/2021: No i
[2021-04-01 17:23] LABS: Glucose Point of Care 219 mg/dl (65-105)
[2021-04-01] MEDS: INSULIN ASPART (*BKC) 100 UNITS/ML SUB-Q ×2 (17:28→23:56)
[2021-04-02] VITALS (33 sets, daily range): BP systolic 94–119; BP diastolic 43–72; PULSE 90–118; RESP 20–34; TEMP 36.4–38.5; O2SAT 78–97
[2021-04-02 00:04] LABS: Glucose Point of Care 213 mg/dl (65-105)
[2021-04-02] MEDS: MIDAZOLAM 100MG/NS 100ML(*CRX) 100 MG/100 ML BAG 6 MG IV CONT ×2 (01:42→17:25)
[2021-04-02] MEDS: ALBUTEROL SULFATE NEB 2.5 MG/0.5 ML INH 5 MG INHALATION ×4 (03:05→20:15)
[2021-04-02] MEDS: IPRATROPIUM BR 0.02% INH SOLN 0.5 MG/2.5 ML VIAL INHALATION ×4 (03:05→20:15)
[2021-04-02] MEDS: PROPOFOL IV EMULSION 100 ML 7.98 MG IV CONT ×2 (04:45→16:13)
[2021-04-02 05:30] LABS: Base Excess ABG 7.7 mEq/l (+/-2.0); Carboxyhemoglobin 0.3 % THb (0-2.0); Fractional Inspired Oxygen 85 %; HCO3 ABG 35.7 mEq/l (22.0-26.0); Methemoglobin ABG 0.4 %THb (0-1.5); Oxygen Content ABG 18.8 %vol (16.0-22.0); Oxygen Saturation ABG 97.8 % (95.0-100.0); Oxyhemoglobin 96.9 % THb (90.0-100.0); PO2 ABG 114.1 mmHg (80.0-100.0); PO2 FiO2 Ratio Arterial Blood 1.34 %; Reduced Hemoglobin 2.4 %THb (0-5.0); Total Hemoglobin 13.7 g/dL (12.0-18.0); pH ABG 7.348 (7.350-7.450)
[2021-04-02 05:32] LABS: Device VENTILATOR; Modified Allen's Test Pass; PCO2 ABG 66.5 mmHg (35.0-45.0); Site Drawn LEFT RADIAL
[2021-04-02 05:33] LABS: Arterial Blood Gas PEEP 14 cmH2O; Arterial Blood Gas Tidal Volume 400 ml; Arterial Blood Gas Vent Mode CMV; Arterial Blood Gas Ventilator rate 30 /MIN
[2021-04-02 05:42] LABS: Hematocrit 36.1 % (37.0-47.0); Hemoglobin 10.9 g/dL (12.0-15.0); Mean Corpuscular HGB Conc 30.2 g/dl (32-36); Mean Corpuscular Hemoglobin 28.7 pg (26-34); Mean Platelet Volume 11.3 fl (7.4-10.4); Platelet Count Result 127 k/mm3 (150-375); Red Cell Distribution Width 17.7 % (11.5-14.5); White Blood Count 8.6 K/mm3 (4.5-10.0)
[2021-04-02 05:58] LABS: Alanine Aminotransferase 103 U/L (4-35); Albumin Level 2.8 g/dL (3.5-5.1); Alkaline Phosphatase 81 U/L (38-126); Anion Gap 4 mmol/L (8-16); Aspartate Amino Transferase 52 U/L (14-36); Bilirubin,Total 0.4 mg/dL (0.2-1.3); Blood Urea Nitrogen 33 mg/dL (7-17); Calcium 9.2 mg/dL (8.4-10.2); Carbon Dioxide 36 mmol/L (22-30); Chloride 104 mmol/L (98-107); Estimated CRCL calculation 120 ml/min; Estimated Glomerular Filt Rate > 60; Glucose 225 mg/dL (65-110); Magnesium 2.1 mg/dL (1.6-2.3); Phosphorus 4.4 mg/dL (2.5-4.5); Potassium 3.6 mmol/L (3.4-5.0); Sodium 144 mmol/L (137-145)
[2021-04-02] MEDS: INSULIN ASPART (*BKC) 100 UNITS/ML SUB-Q ×4 (06:43→23:58)
[2021-04-02] MEDS: CENTRAL LINE FLUSH 10 ML IV PUSH ×3 (06:44→22:15)
[2021-04-02] MEDS: LEVOTHYROXINE SODIUM 100 MCG TABLET PO (06:44)
--- NOTE | 2021-04-02 08:17 | PM.IMPN ---
Subjective Date/time seen: 04/02/21 08:35 S: Patient remains intubated on mechanical ventilation in the prone position. Review of Systems Review of Systems: ROS unobtainable: Yes unobtainable due to mental status Exam Narrative: General: Patient is intubated, sedated, in no acute distress HEENT: Pupils equal and reactive, periorbital and scleral edema Neck: Supple, no lymphadenopathy, short neck Respiratory: Diffuse coarse breath sounds bilaterally, decreased air entry at bases, no wheezing Cardiac: S1-S2 normal, regular rate and rhythm Abdomen: Soft, nontender, nondistended, hypoactive bowel sounds, morbid obesity Extremities: Lower extremity and upper extremities was cyanotic, Neuro: sedated, does not open her eyes or follows commands Skin: no lesions noted Psych: unable to assess at this time Const: General: cooperative, healthy appearing, no acute distress, well developed, alert, awake and Physically active Nutritional Appearance: obese Orientation/consciousness: oriented to person, oriented to place, oriented to time and patient oriented x3 Limitations: no limitations HENMT: Head: normal to inspection, No palpable skull fracture present, normocephalic and atraumatic Ears: hearing grossly normal bilaterally General nose exam: Normal external nose present Mouth: Yes moist mucous membranes Eyes: General: appearance normal, both eyes and all related structures Pupils: Equal, round and reactive pupils present EOM: EOMs intact bilaterally Neck: Neck: normal visual inspection (Large girth), supple and no JVD Lymphatic: lymphadenopathy not noted Chest: Chest palpation & inspection: normal inspection of the chest Resp: Effort & Inspection: normal respiratory effort Auscultation: clear to auscultation bilaterally, no crackles, no rales and no rhonchi Percussion: percussion normal Cardio: Palpation: normal PMI Rate: regular rate Rhythm: regular rhythm Heart sounds: S1 normal heart sound present, S2 normal heart sound present, no gallops, no murmurs and no rubs Peripheral pulses: Peripheral pulses 2+ throughout GI: Inspection: normal to inspection and Pannus present Auscultation: normal bowel sounds Rectal Exam: deferred Skin: General skin exam: normal color and no rashes or lesions noted Neuro: General: oriented to person, oriented to place, oriented to time and patient oriented x3 Cranial nerves: Yes Equal, round and reactive pupils present and Yes Normal hearing present Cognition (Neuro): normal cognition Speech: normal speech Sensory Exam: normal sensation Extrem: General: normal to inspection Right upper extremity: normal to inspection Left upper extremity: normal to inspection Right lower extremity: normal to inspection Left lower extremity: normal to inspection Psych: Appearance: grossly normal Mental Status: mental status grossly normal Speech and movement: Normal speech and movement present Affect: Anxious affect present Attitude: cooperative Thought process: Normal thought process present Insight: Good insight present (Psych) Judgement: Good judgement present (Psych) Objective Data Vital Signs Vital Signs: Vital Signs - 24 hr 04/01/21 20:00 04/01/21 22:00 04/01/21 22:01 Temperature 98.8 F Pulse Rate 102 H 103 H 104 H Respiratory Rate 30 H 30 H 30 H Blood Pressure 124/62 135/61 Pulse Oximetry 96 95 04/01/21 22:02 04/01/21 22:30 04/01/21 22:31 Temperature Pulse Rate 104 H 110 H 103 H Respiratory Rate 30 H 30 H Blood Pressure Pulse Oximetry 93 04/01/21 22:41 04/02/21 00:00 04/02/21 00:54 Temperature 97.6 F Pulse Rate 103 H 100 101 H Respiratory Rate 30 H 30 H Blood Pressure 97/50 L Pulse Oximetry 95 96 04/02/21 01:42 04/02/21 02:00 04/02/21 03:07 Temperature Pulse Rate 100 100 99 Respiratory Rate 30 H 30 H 30 H Blood Pressure 98/51 L Pulse Oximetry 95 04/02/21 03:08 04/02/21 04:00 04/02/21 04:45 Temperature 98.0 F Pulse Rate 9
[2021-04-02] MEDS: ASPIRIN 325 MG TABLET PO (08:43)
[2021-04-02] MEDS: ASCORBIC ACID 500 MG TABLET PO (08:43)
[2021-04-02] MEDS: INSULIN GLARGINE (*BKC) 100 UNITS/ML 35 UNITS SUB-Q (08:43)
[2021-04-02] MEDS: PANTOPRAZOLE SODIUM IV 40 MG VIAL IV PUSH ×3 (08:43→21:20)
[2021-04-02] MEDS: CHOLECALCIFEROL 1,000 UNITS TABLET 1000 UNITS PO (08:43)
[2021-04-02] MEDS: MINERAL OIL/WHITE PETROLATUM OINTMENT 1 APPLIC EACH EYE ×2 (08:43→21:18)
[2021-04-02] MEDS: polyethylene glycoL 3350 17 GM POWD.PACK PO (08:43)
[2021-04-02] MEDS: ENOXAPARIN 40 MG/0.4 ML SYRINGE SUB-Q ×2 (08:45→21:18)
[2021-04-02] MEDS: levoFLOXacin 500 MG/D5W 100 ML 500 MG/100 ML BAG 100 MG IVPB (08:45)
[2021-04-02] MEDS: BUDESONIDE RESPULE NEB 0.5 MG/2 ML AMP INHALATION ×2 (08:47→20:15)
--- NOTE | 2021-04-02 11:09 | WPDINTPN ---
Progress Note: A&P Assessment and Plan (1) Acute hypoxemic respiratory failure due to COVID-19: Code(s): U07.1 - COVID-19; J96.01 - Acute respiratory failure with hypoxia Status: Acute Assessment and Plan: Acute hypoxic respiratory failure likely related to COVID pneumonia, -patient up as she was on 100% FiO2, saturating in the mid 80s and tachypneic in the 40s, -intubated on 03/22/2021 -continue low tidal volume strategy, - Currently on a PEEP of 14 and 85% FiO2 which was increased after patient was cleaned, will wean FiO2 to maintain O2 sats greater than 90% -continue to prone patient for 16-18 hours daily - continue bronchodilators and Pulmicort -sedated with fentanyl, Versed, propofol infusion -patient has been off Nimbex infusion since 03/27, -blood pressures have been stable, will diurese patient (2) Pneumonia due to 2019 novel coronavirus: Code(s): U07.1 - COVID-19; J12.82 - Pneumonia due to coronavirus disease 2019 Status: Acute Assessment and Plan: Patient presented on 03/16 with shortness of breath, COVID positive, nausea, weakness and decreased appetite. Patient is unvaccinated dexamethasone completed today on 03/25 -status post 10 days Remdesivir -received tocilizumab on 03/16/2021 -continue airborne, droplet and contact isolation/precautions -CRP is increasing (3) Type 2 diabetes mellitus without complication, without long-term current use of insulin: Code(s): E11.9 - Type 2 diabetes mellitus without complications Status: Acute Assessment and Plan: Continue Accu-Cheks and sliding scale insulin -continue Lantus (4) Hypothyroidism: Qualifiers: Hypothyroidism type: unspecified Qualified Code(s): E03.9 - Hypothyroidism, unspecified Code(s): E03.9 - Hypothyroidism, unspecified Status: Acute Assessment and Plan: Continue levothyroxine (5) DVT prophylaxis: Code(s): Z29.9 - Encounter for prophylactic measures, unspecified Status: Acute Assessment and Plan: Continue Lovenox (6) UTI (urinary tract infection): Code(s): N39.0 - Urinary tract infection, site not specified Status: Acute Assessment and Plan: UA shows UTI, -urine cultures growing group B strep from 03/24 -status post 7 days of Levaquin, patient is allergic to penicillins and cephalexin (7) Dietary counseling and surveillance: Code(s): Z71.3 - Dietary counseling and surveillance Status: Acute Assessment and Plan: Patient is tolerating tube feeds, positive bowel movement this morning Continue MiraLax Stress ulcer prophylaxis: Protonix Additional Plan Code status: Full code Critical care time spent: 32 minutes This dictation may have been done utilizing a voice recognition system. Attempts have been made to correct errors. However, there may be uncorrected grammatical, spelling, and recognition errors present. Due to a high probability of clinically significant, life threatening deterioration, the patient required my highest level of preparedness to intervene emergently and I personally spent this critical care time directly and personally managing the patient. This critical care time included obtaining a history; examining the patient; pulse oximetry; ordering and review of studies; arranging urgent treatment with development of a management plan; evaluation of patient's response to treatment; frequent reassessment; and discussions with other providers. It was exclusive of separately billable procedures and treating other patients and teaching time. Please see Assessment and Plan section and the rest of the note for further information on patient assessment and treatment Subjective Date/time seen: 04/02/21 11:09 Interval history: Interval history: Reason for consult: Acute hypoxic respiratory failure, failed BiPAP COVID-19 pneumonia, unvaccinated patient 04/02/2021: Patient remains intubated, CMV mode
--- NOTE | 2021-04-02 11:30 | PCFNICU ---
ICU Rounding Note: Pt current nutrition is Vital AF 1.2 at 65 ml/hr over 22 hours Last recorded weight is 141.6 kg, up from 137.2 kg on admit. Bowel Motility:+BM reported / Labs Reviewed:Glu 225,BUN 33, Cr 0.6,Alb 2.8,Hct 36.1,Hgb 10.9 Meds Noted:Albuterol, Miralax, Vit D, Versed, Fentanyl, Lantus, Atrovent, Synthroid, Propofol 10 rnza=334 kcals. Skin: abrasions-cheeks. Additional Notes: Patient remains on mechanical vent and tube feedings of Vital AF 1.2 at 65 ml/hr and tolerating. Free water flush 30 ml q 4 hours. Propofol is providing an additional 211 kcals. Agree with diet orders. Following daily in ICU rounds and reassessing every Wednesday and Wednesday.
[2021-04-02 12:23] LABS: Glucose Point of Care 212 mg/dl (65-105)
[2021-04-02] MEDS: FENTANYL 2,500MCG/NS250ML(*CRX 2,500 MCG/250 ML BAG 17.5 MCG IV CONT (12:48)
[2021-04-02 17:55] LABS: Glucose Point of Care 222 mg/dl (65-105)
[2021-04-03] VITALS (31 sets, daily range): BP systolic 93–125; BP diastolic 47–62; PULSE 80–106; RESP 22–31; TEMP 36.6–38.1; O2SAT 94–100
[2021-04-03 00:05] LABS: Glucose Point of Care 249 mg/dl (65-105)
[2021-04-03] MEDS: IPRATROPIUM BR 0.02% INH SOLN 0.5 MG/2.5 ML VIAL INHALATION ×3 (01:51→15:10)
[2021-04-03] MEDS: ALBUTEROL SULFATE NEB 2.5 MG/0.5 ML INH 5 MG INHALATION ×4 (01:51→20:40)
[2021-04-03] MEDS: FENTANYL 2,500MCG/NS250ML(*CRX 2,500 MCG/250 ML BAG 17.5 MCG IV CONT (03:08)
[2021-04-03 04:44] LABS: Mean Corpuscular HGB Conc 30.3 g/dl (32-36); Mean Corpuscular Volume 95.7 fl (80-100); Mean Platelet Volume 11.7 fl (7.4-10.4); Platelet Count Result 110 k/mm3 (150-375); Red Blood Count 3.45 M/mm3 (4.2-5.4); Red Cell Distribution Width 18.1 % (11.5-14.5); White Blood Count 15.7 K/mm3 (4.5-10.0)
[2021-04-03 04:57] LABS: Alanine Aminotransferase 87 U/L (4-35); Albumin Level 2.5 g/dL (3.5-5.1); Alkaline Phosphatase 86 U/L (38-126); Anion Gap 4 mmol/L (8-16); Aspartate Amino Transferase 44 U/L (14-36); Bilirubin,Total 0.6 mg/dL (0.2-1.3); Blood Urea Nitrogen 43 mg/dL (7-17); Calcium 9.1 mg/dL (8.4-10.2); Carbon Dioxide 37 mmol/L (22-30); Chloride 103 mmol/L (98-107); Estimated CRCL calculation 83 ml/min; Estimated Glomerular Filt Rate > 60; Glucose 260 mg/dL (65-110); Magnesium 2.4 mg/dL (1.6-2.3); Phosphorus 3.6 mg/dL (2.5-4.5); Potassium 4.1 mmol/L (3.4-5.0); Sodium 144 mmol/L (137-145)
[2021-04-03] MEDS: PROPOFOL IV EMULSION 100 ML 7.98 MG IV CONT (05:29)
[2021-04-03] MEDS: INSULIN ASPART (*BKC) 100 UNITS/ML SUB-Q (05:30)
[2021-04-03] MEDS: LEVOTHYROXINE SODIUM 100 MCG TABLET PO (05:31)
[2021-04-03] MEDS: CENTRAL LINE FLUSH 10 ML IV PUSH ×3 (05:31→22:09)
[2021-04-03 06:00] LABS: Alveolar/Arterial O2 Gradient 475.9 mmHg; Base Excess ABG 7.4 mEq/l (+/-2.0); Carboxyhemoglobin 0.2 % THb (0-2.0); Fractional Inspired Oxygen 90 %; HCO3 ABG 34.2 mEq/l (22.0-26.0); Methemoglobin ABG 0.2 %THb (0-1.5); Oxygen Content ABG 15.1 %vol (16.0-22.0); Oxygen Saturation ABG 97.5 % (95.0-100.0); Oxyhemoglobin 96.5 % THb (90.0-100.0); PO2 FiO2 Ratio Arterial Blood 1.16 %; Reduced Hemoglobin 3.1 %THb (0-5.0); pH ABG 7.372 (7.350-7.450)
[2021-04-03 06:12] LABS: Device VENTILATOR; Modified Allen's Test Unable to perform; PCO2 ABG 60.3 mmHg (35.0-45.0); Site Drawn RIGHT RADIAL
[2021-04-03 06:13] LABS: Arterial Blood Gas PEEP 14 cmH2O; Arterial Blood Gas Tidal Volume 400 ml; Arterial Blood Gas Vent Mode CMV; Arterial Blood Gas Ventilator rate 30 /MIN
[2021-04-03] MEDS: ENOXAPARIN 40 MG/0.4 ML SYRINGE SUB-Q ×2 (08:42→20:03)
[2021-04-03] MEDS: ASPIRIN 325 MG TABLET PO (08:42)
[2021-04-03] MEDS: ASCORBIC ACID 500 MG TABLET PO (08:42)
[2021-04-03] MEDS: CHOLECALCIFEROL 1,000 UNITS TABLET 1000 UNITS PO (08:42)
[2021-04-03] MEDS: polyethylene glycoL 3350 17 GM POWD.PACK PO (08:43)
[2021-04-03] MEDS: MINERAL OIL/WHITE PETROLATUM OINTMENT 1 APPLIC EACH EYE ×2 (08:43→20:03)
[2021-04-03] MEDS: INSULIN GLARGINE (*BKC) 100 UNITS/ML 35 UNITS SUB-Q (08:43)
[2021-04-03] MEDS: BUDESONIDE RESPULE NEB 0.5 MG/2 ML AMP INHALATION ×2 (08:50→20:40)
--- NOTE | 2021-04-03 11:15 | PCFNICU ---
ICU Rounding Note: Pt current nutrition is Vital AF 1.2 at 65 ml/hr over 22 hours. Last recorded weight is 139.2 kg-stable. Bowel Motility:+BM reported 1/3 Labs Reviewed:Alb 2.5,BUN 43, Glu 260,Mg 2.4, Hct 33.0, Hgb 10.0 Meds Noted:Albuterol, Propofol 10 wuia=115 kcals, Versed, Fentanyl, Vit D, Bumex, Synthroid,Lantus, Vit C, Lovenox, Atrovent, Protonix, Miralax. Skin:WNL Additional Notes: Patient remains on mechanical vent and tube feedings of Vital AF 1.2 at 65 ml/hr over 22 hours. Tolerating tube feedings. Propofol providing an additional 211 kcals. Agree with diet orders. Following daily in ICU rounds and reassessing every Wednesday and Wednesday.
[2021-04-03] MEDS: MIDAZOLAM 100MG/NS 100ML(*CRX) 100 MG/100 ML BAG 6 MG IV CONT (11:18)
[2021-04-03 12:24] LABS: Glucose Point of Care 169 mg/dl (65-105)
--- NOTE | 2021-04-03 15:22 | WPDINTPN ---
Progress Note: A&P Assessment and Plan (1) Acute hypoxemic respiratory failure due to COVID-19: Code(s): U07.1 - COVID-19; J96.01 - Acute respiratory failure with hypoxia Status: Acute Assessment and Plan: Acute hypoxic respiratory failure likely related to COVID pneumonia, -patient up as she was on 100% FiO2, saturating in the mid 80s and tachypneic in the 40s, -intubated on 03/22/2021 -continue low tidal volume strategy, -chest x-ray reviewed and shows persistent bilateral infiltrates. Advance ET tube by 2 cm - Currently on a PEEP of 14 and 80% FiO2 -patient was placed in supine position this morning and she quickly desaturated and decompensated. FiO2 was increased to 100%. Patient was bag ventilated with PEEP valve and then had to be placed in prone position again -continue to prone patient daily - continue bronchodilators and Pulmicort -sedated with fentanyl, Versed, propofol infusion -patient has been off Nimbex infusion since 03/27 but may need to resume if there is a patient ventilator asynchrony, -blood pressures have been stable, will diurese patient (2) Pneumonia due to 2019 novel coronavirus: Code(s): U07.1 - COVID-19; J12.82 - Pneumonia due to coronavirus disease 2019 Status: Acute Assessment and Plan: Patient presented on 03/16 with shortness of breath, COVID positive, nausea, weakness and decreased appetite. Patient is unvaccinated dexamethasone completed today on 03/25 -status post 10 days Remdesivir -received tocilizumab on 03/16/2021 -continue airborne, droplet and contact isolation/precautions -CRP is increasing (3) Fever: Code(s): R50.9 - Fever, unspecified Status: Acute Assessment and Plan: With increasing WBC Change Lemon, check blood cultures Repeat UA and urine culture Check lipase (4) Type 2 diabetes mellitus without complication, without long-term current use of insulin: Code(s): E11.9 - Type 2 diabetes mellitus without complications Status: Acute Assessment and Plan: Continue Accu-Cheks and sliding scale insulin -continue Lantus (5) Hypothyroidism: Qualifiers: Hypothyroidism type: unspecified Qualified Code(s): E03.9 - Hypothyroidism, unspecified Code(s): E03.9 - Hypothyroidism, unspecified Status: Acute Assessment and Plan: Continue levothyroxine (6) DVT prophylaxis: Code(s): Z29.9 - Encounter for prophylactic measures, unspecified Status: Acute Assessment and Plan: Continue Lovenox (7) UTI (urinary tract infection): Code(s): N39.0 - Urinary tract infection, site not specified Status: Acute Assessment and Plan: UA shows UTI, -urine cultures growing group B strep from 03/24 -status post 7 days of Levaquin, patient is allergic to penicillins and cephalexin (8) Dietary counseling and surveillance: Code(s): Z71.3 - Dietary counseling and surveillance Status: Acute Assessment and Plan: Patient is tolerating tube feeds, positive bowel movement this morning Continue MiraLax Stress ulcer prophylaxis: Protonix Additional Plan Code status: Full code Critical care time spent: 35 minutes This dictation may have been done utilizing a voice recognition system. Attempts have been made to correct errors. However, there may be uncorrected grammatical, spelling, and recognition errors present. Due to a high probability of clinically significant, life threatening deterioration, the patient required my highest level of preparedness to intervene emergently and I personally spent this critical care time directly and personally managing the patient. This critical care time included obtaining a history; examining the patient; pulse oximetry; ordering and review of studies; arranging urgent treatment with development of a management plan; evaluation of patient's response to treatment; frequent reassessment; and discussions with other providers. It
[2021-04-03 16:07] LABS: Lipase 13 U/L (23-300)
[2021-04-03] MEDS: FUROSEMIDE INJ 40 MG/4 ML VIAL IV PUSH (17:32)
[2021-04-03] MEDS: FLUCONAZOLE 150 MG TABLET FEED TUBE (17:32)
[2021-04-03 18:15] LABS: Glucose Point of Care 184 mg/dl (65-105)
[2021-04-03] MEDS: FENTANYL 2,500MCG/NS250ML(*CRX 2,500 MCG/250 ML BAG 15 MCG IV CONT (19:56)
[2021-04-03] MEDS: PANTOPRAZOLE SODIUM IV 40 MG VIAL IV PUSH (20:03)
[2021-04-03] MEDS: PROPOFOL IV EMULSION 100 ML 4.79 MG IV CONT (22:10)
[2021-04-04] VITALS (29 sets, daily range): BP systolic 97–163; BP diastolic 47–87; PULSE 80–120; RESP 26–33; TEMP 37.2–38.2; O2SAT 91–100
[2021-04-04 00:37] LABS: Glucose Point of Care 164 mg/dl (65-105)
[2021-04-04] MEDS: ALBUTEROL SULFATE NEB 2.5 MG/0.5 ML INH 5 MG INHALATION ×4 (02:15→21:44)
[2021-04-04] MEDS: MIDAZOLAM 100MG/NS 100ML(*CRX) 100 MG/100 ML BAG IV CONT (04:44)
[2021-04-04 06:00] LABS: Hematocrit 31.7 % (37.0-47.0); Hemoglobin 9.5 g/dL (12.0-15.0); Mean Corpuscular Hemoglobin 29.3 pg (26-34); Mean Corpuscular Volume 97.8 fl (80-100); Mean Platelet Volume 11.2 fl (7.4-10.4); Platelet Count Result 99 k/mm3 (150-375); Red Blood Count 3.24 M/mm3 (4.2-5.4); Red Cell Distribution Width 18.3 % (11.5-14.5); White Blood Count 7.8 K/mm3 (4.5-10.0)
[2021-04-04 06:18] LABS: Alanine Aminotransferase 59 U/L (4-35); Albumin Level 2.5 g/dL (3.5-5.1); Alkaline Phosphatase 76 U/L (38-126); Anion Gap 1 mmol/L (8-16); Aspartate Amino Transferase 32 U/L (14-36); Bilirubin,Total 0.6 mg/dL (0.2-1.3); Blood Urea Nitrogen 47 mg/dL (7-17); Calcium 9.6 mg/dL (8.4-10.2); Carbon Dioxide 39 mmol/L (22-30); Chloride 105 mmol/L (98-107); Estimated CRCL calculation 119 ml/min; Estimated Glomerular Filt Rate > 60; Glucose 169 mg/dL (65-110); Magnesium 2.3 mg/dL (1.6-2.3); Phosphorus 2.8 mg/dL (2.5-4.5); Potassium 3.8 mmol/L (3.4-5.0); Sodium 145 mmol/L (137-145); Triglycerides 180 mg/dL (<150)
[2021-04-04 06:31] LABS: Alveolar/Arterial O2 Gradient 364.3 mmHg; Base Excess ABG 10.3 mEq/l (+/-2.0); Carboxyhemoglobin 0.2 % THb (0-2.0); Fractional Inspired Oxygen 70 %; HCO3 ABG 36.8 mEq/l (22.0-26.0); Methemoglobin ABG 0.1 %THb (0-1.5); Oxygen Content ABG 14.5 %vol (16.0-22.0); Oxygen Saturation ABG 94.1 % (95.0-100.0); Oxyhemoglobin 93.1 % THb (90.0-100.0); PCO2 ABG 59.2 mmHg (35.0-45.0); PO2 ABG 71.2 mmHg (80.0-100.0); PO2 FiO2 Ratio Arterial Blood 1.02 %; Reduced Hemoglobin 6.6 %THb (0-5.0); pH ABG 7.411 (7.350-7.450)
[2021-04-04 06:32] LABS: Device VENTILATOR; Modified Allen's Test Pass; Site Drawn LEFT RADIAL
[2021-04-04 06:33] LABS: Arterial Blood Gas PEEP 14 cmH2O; Arterial Blood Gas Tidal Volume 400 ml; Arterial Blood Gas Vent Mode CMV; Arterial Blood Gas Ventilator rate 30 /MIN
[2021-04-04] MEDS: LEVOTHYROXINE SODIUM 100 MCG TABLET PO (06:44)
[2021-04-04] MEDS: CENTRAL LINE FLUSH 10 ML IV PUSH ×3 (06:44→21:31)
[2021-04-04] MEDS: BUDESONIDE RESPULE NEB 0.5 MG/2 ML AMP INHALATION ×2 (09:19→21:44)
[2021-04-04] MEDS: IPRATROPIUM BR 0.02% INH SOLN 0.5 MG/2.5 ML VIAL INHALATION ×3 (09:20→21:44)
[2021-04-04] MEDS: PANTOPRAZOLE SODIUM IV 40 MG VIAL IV PUSH ×2 (09:58→21:30)
[2021-04-04] MEDS: MINERAL OIL/WHITE PETROLATUM OINTMENT 1 APPLIC EACH EYE ×2 (09:58→21:30)
[2021-04-04] MEDS: ENOXAPARIN 40 MG/0.4 ML SYRINGE SUB-Q ×2 (09:58→21:30)
[2021-04-04] MEDS: ASCORBIC ACID 500 MG TABLET PO (09:58)
[2021-04-04] MEDS: INSULIN GLARGINE (*BKC) 100 UNITS/ML 35 UNITS SUB-Q (09:58)
[2021-04-04] MEDS: CHOLECALCIFEROL 1,000 UNITS TABLET 1000 UNITS PO (09:58)
[2021-04-04] MEDS: ASPIRIN 325 MG TABLET PO (09:58)
--- NOTE | 2021-04-04 10:17 | PM.IMPN ---
Progress Note: A&P Assessment and Plan (1) Acute hypoxemic respiratory failure due to COVID-19: Code(s): U07.1 - COVID-19; J96.01 - Acute respiratory failure with hypoxia Status: Acute Assessment and Plan: Acute hypoxic respiratory failure likely related to COVID pneumonia, -intubated on 03/22/2021 -continue low tidal volume strategy, -chest x-ray pending - Currently on a PEEP of 14 and 70% FiO2 -yesterday and today patient patient was placed in supine position which she did not tolerate with quick desaturation and decompensation. Both times patient had to be bag ventilated with PEEP valve and then had to be placed back in prone position again -continue to prone for now - continue bronchodilators and Pulmicort -sedated with fentanyl, Versed, propofol infusion -patient has been off Nimbex infusion since 03/27 but may need to resume if there is a patient ventilator asynchrony, -blood pressures have been stable, will continue to diurese patient (2) Pneumonia due to 2019 novel coronavirus: Code(s): U07.1 - COVID-19; J12.82 - Pneumonia due to coronavirus disease 2019 Status: Acute Assessment and Plan: Patient presented on 03/16 with shortness of breath, COVID positive, nausea, weakness and decreased appetite. Patient is unvaccinated dexamethasone completed today on 03/25 -status post 10 days Remdesivir -received tocilizumab on 03/16/2021 -continue airborne, droplet and contact isolation/precautions -CRP is increasing (3) Fever: Code(s): R50.9 - Fever, unspecified Status: Acute Assessment and Plan: Normal WBC 1/6 Lemon change Repeat blood cultures and sputum culture sent Repeat UA and urine culture Normal lipase Hold antibiotics at this time (4) Type 2 diabetes mellitus without complication, without long-term current use of insulin: Code(s): E11.9 - Type 2 diabetes mellitus without complications Status: Acute Assessment and Plan: Continue Accu-Cheks and sliding scale insulin -continue Lantus (5) Hypothyroidism: Qualifiers: Hypothyroidism type: unspecified Qualified Code(s): E03.9 - Hypothyroidism, unspecified Code(s): E03.9 - Hypothyroidism, unspecified Status: Acute Assessment and Plan: Continue levothyroxine (6) DVT prophylaxis: Code(s): Z29.9 - Encounter for prophylactic measures, unspecified Status: Acute Assessment and Plan: Continue Lovenox (7) UTI (urinary tract infection): Code(s): N39.0 - Urinary tract infection, site not specified Status: Acute Assessment and Plan: UA shows UTI, -urine cultures growing group B strep from 03/24 -status post 7 days of Levaquin, patient is allergic to penicillins and cephalexin (8) Dietary counseling and surveillance: Code(s): Z71.3 - Dietary counseling and surveillance Status: Acute Assessment and Plan: Patient is tolerating tube feeds, positive bowel movement this morning Continue MiraLax Stress ulcer prophylaxis: Protonix Additional Plan Code status: Full code Critical care time spent: 36 minutes I spoke to patient's Juno and daughter Erika by phone. I updated them with patient's current status including severe respiratory failure that has been not shown any improvement over last 2 weeks, her inability to tolerate supine position, our current treatment plan and answered all their questions. I discussed options of comfort care and DNR. They told me that they are not ready to 'give up' at this point. Patient's daughter asked me for experimental treatment like 3% saline and Viagra which I explained that cannot be done outside of a clinical trial setting. This dictation may have been done utilizing a voice recognition system. Attempts have been made to correct errors. However, there may be uncorrected grammatical, spelling, and recognition errors present. Due to a high probability of clinically s
[2021-04-04 11:41] LABS: Glucose Point of Care 153 mg/dl (65-105)
--- NOTE | 2021-04-04 12:07 | PCNFU ---
Nutrition Follow-Up Complete: Inadequate oral intake related to COVID-19 and bipap dependence as evidenced by no documented oral intake for several days Goal: Patient to meet estimated nutritional needs. Patient will continue current goal. Pt current nutrition is Vital AF 1.2 at 65 ml/hr over 22 hours. Last recorded weight is 142.2 kg-stable Bowel Motility:+BM reported 04/04 Labs Reviewed:Glu 169,BUN 33, TG 180, Alb 2.5,Hgb 9.5,Hct 31.7 Meds Noted:Bumex, Versed, Miralax, Vit D, Synthroid, Protonix, Vit C, Lovenox, Atrovent, Albuterol Skin:WNL Additional Notes: Patient remain on mechanical vent and tube feedings of Vital AF 1.2 at 65 ml/hr over 22 hours. Propofol has been discontinued. Current tube feeding is providing 1716 kcals/107 gms protein/1160 ml water. Free water flush 30 ml q 4 hours. Agree with diet orders. Patient remains a full code. Monitor in ICU rounds and reassessing every Wednesday and Wednesday.
[2021-04-04] MEDS: FENTANYL 2,500MCG/NS250ML(*CRX 2,500 MCG/250 ML BAG 15 MCG IV CONT (15:57)
[2021-04-04 16:56] LABS: Glucose Point of Care 182 mg/dl (65-105)
--- NOTE | 2021-04-04 23:20 | PC.NURSE ---
04/04/20 1845-Family updated on patient condition. This nurse initiated face time call with and children of patient.
[2021-04-04] MEDS: AZTREONAM 1 GM in DEXTROSE 5% IN WATER 50 ML 100 ML IVPB (23:38)
[2021-04-04 23:57] LABS: Glucose Point of Care 171 mg/dl (65-105)
[2021-04-05] VITALS (18 sets, daily range): BP systolic 117–163; BP diastolic 59–83; PULSE 70–103; RESP 23–32; TEMP 37–37.7; O2SAT 90–95
[2021-04-05] MEDS: MIDAZOLAM 100MG/NS 100ML(*CRX) 100 MG/100 ML BAG IV CONT (01:00)
[2021-04-05] MEDS: ALBUTEROL SULFATE NEB 2.5 MG/0.5 ML INH 5 MG INHALATION ×3 (02:34→14:40)
[2021-04-05] MEDS: IPRATROPIUM BR 0.02% INH SOLN 0.5 MG/2.5 ML VIAL INHALATION ×3 (02:34→14:40)
[2021-04-05 05:36] LABS: Base Excess ABG 10.8 mEq/l (+/-2.0); Carboxyhemoglobin 0.3 % THb (0-2.0); Fractional Inspired Oxygen 90 %; HCO3 ABG 38.1 mEq/l (22.0-26.0); Oxygen Content ABG 14.1 %vol (16.0-22.0); Oxygen Saturation ABG 92.9 % (95.0-100.0); Oxyhemoglobin 93.3 % THb (90.0-100.0); PO2 ABG 69.5 mmHg (80.0-100.0); PO2 FiO2 Ratio Arterial Blood 0.77 %; Reduced Hemoglobin 6.4 %THb (0-5.0); Total Hemoglobin 10.7 g/dL (12.0-18.0); pH ABG 7.376 (7.350-7.450)
[2021-04-05 05:37] LABS: Arterial Blood Gas PEEP 14 cmH2O; Arterial Blood Gas Vent Mode CMV; Arterial Blood Gas Ventilator rate 30 /MIN; Device VENTILATOR; Modified Allen's Test Unable to perform; PCO2 ABG 66.5 mmHg (35.0-45.0); Site Drawn LEFT RADIAL
[2021-04-05 05:38] LABS: Arterial Blood Gas Tidal Volume 400 ml
[2021-04-05] MEDS: AZTREONAM 1 GM in DEXTROSE 5% IN WATER 50 ML 100 ML IVPB (05:54)
[2021-04-05] MEDS: LEVOTHYROXINE SODIUM 100 MCG TABLET PO (05:55)
[2021-04-05] MEDS: CENTRAL LINE FLUSH 10 ML IV PUSH (06:00)
[2021-04-05 06:52] LABS: Basophils Percent Auto 0.6 % (0.2-1.2); Eosinophils Absolute Auto 0.4 K/mm3 (0-0.3); Eosinophils Percent Auto 5.7 % (0-4.4); Hematocrit 33.9 % (37.0-47.0); Hemoglobin 9.9 g/dL (12.0-15.0); Immature Granulocyte Absolute 0.16 K/mm3 (0.00-0.031); Immature Granulocyte Percent A 2.4 % (0-0.5); Immature Platelet Fraction Pct 4.5 % (0.9-11.2); Lymphocytes Absolute Auto 1.09 K/mm3 (0.9-3.2); Lymphocytes Percent Auto 16.3 % (18.3-44.2); Mean Corpuscular HGB Conc 29.2 g/dl (32-36); Mean Corpuscular Hemoglobin 28.9 pg (26-34); Mean Corpuscular Volume 98.8 fl (80-100); Mean Platelet Volume 11.7 fl (7.4-10.4); Monocytes Absolute Auto 0.4 K/mm3 (0.1-0.6); Monocytes Percent Auto 5.7 % (2.6-8.5); Neutrophils Absolute Auto 4.6 K/mm3 (1.3-6.7); Neutrophils Percent Auto 69.3 % (45.5-73.1); Nucleated Red Blood Cells Perc 0.3 % (0.0-0.2); Platelet Count Result 110 k/mm3 (150-375); Red Blood Count 3.43 M/mm3 (4.2-5.4); Red Cell Distribution Width 18.6 % (11.5-14.5); White Blood Count 6.7 K/mm3 (4.5-10.0)
[2021-04-05 07:02] LABS: Blood Urea Nitrogen 36 mg/dL (7-17); Calcium 9.5 mg/dL (8.4-10.2); Carbon Dioxide > 40 mmol/L (22-30); Chloride 106 mmol/L (98-107); Estimated CRCL calculation 143 ml/min; Estimated Glomerular Filt Rate > 60; Glucose 187 mg/dL (65-110); Potassium 3.9 mmol/L (3.4-5.0); Sodium 147 mmol/L (137-145)
[2021-04-05] MEDS: BUDESONIDE RESPULE NEB 0.5 MG/2 ML AMP INHALATION (09:01)
[2021-04-05] MEDS: FENTANYL 2,500MCG/NS250ML(*CRX 2,500 MCG/250 ML BAG 15 MCG IV CONT (09:12)
[2021-04-05] MEDS: CHOLECALCIFEROL 1,000 UNITS TABLET 1000 UNITS PO (09:15)
[2021-04-05] MEDS: ASCORBIC ACID 500 MG TABLET PO (09:15)
[2021-04-05] MEDS: polyethylene glycoL 3350 17 GM POWD.PACK PO (09:15)
[2021-04-05] MEDS: ASPIRIN 325 MG TABLET PO (09:15)
[2021-04-05] MEDS: ENOXAPARIN 40 MG/0.4 ML SYRINGE SUB-Q (09:15)
[2021-04-05] MEDS: MINERAL OIL/WHITE PETROLATUM OINTMENT 1 APPLIC EACH EYE (09:15)
[2021-04-05] MEDS: PANTOPRAZOLE SODIUM IV 40 MG VIAL IV PUSH (09:15)
[2021-04-05] MEDS: INSULIN GLARGINE (*BKC) 100 UNITS/ML 35 UNITS SUB-Q (09:16)
--- NOTE | 2021-04-05 12:18 | WPDINTPN ---
Progress Note: A&P Assessment and Plan (1) Acute hypoxemic respiratory failure due to COVID-19: Code(s): U07.1 - COVID-19; J96.01 - Acute respiratory failure with hypoxia Status: Acute Assessment and Plan: Acute hypoxic respiratory failure likely related to COVID pneumonia, -intubated on 03/22/2021 -continue low tidal volume strategy, -chest x-ray pending - Currently on a PEEP of 14 and 90% FiO2 -patient has been in prone position for last 3 days and has not tolerated supine position due to quick desaturation and decompensation -continue to prone for now - continue bronchodilators and Pulmicort -sedated with fentanyl, Versed, propofol infusion -patient has been off Nimbex infusion since 03/27 but may need to resume if there is a patient ventilator asynchrony, -blood pressures have been stable, will continue to diurese patient (2) Pneumonia due to 2019 novel coronavirus: Code(s): U07.1 - COVID-19; J12.82 - Pneumonia due to coronavirus disease 2019 Status: Acute Assessment and Plan: Patient presented on 03/16 with shortness of breath, COVID positive, nausea, weakness and decreased appetite. Patient is unvaccinated dexamethasone completed today on 03/25 -status post 10 days Remdesivir -received tocilizumab on 03/16/2021 -continue airborne, droplet and contact isolation/precautions -CRP is increasing (3) Fever: Code(s): R50.9 - Fever, unspecified Status: Acute Assessment and Plan: Febrile but Normal WBC /6 Lemon change Repeat blood cultures and sputum culture sent 03/30 blood culture is growing out Enterococcus faecalis Repeat urine culture pending Normal lipase Patient was started on vancomycin and aztreonam on 04/04 for positive blood culture (4) Type 2 diabetes mellitus without complication, without long-term current use of insulin: Code(s): E11.9 - Type 2 diabetes mellitus without complications Status: Acute Assessment and Plan: Continue Accu-Cheks and sliding scale insulin -continue Lantus (5) Hypothyroidism: Qualifiers: Hypothyroidism type: unspecified Qualified Code(s): E03.9 - Hypothyroidism, unspecified Code(s): E03.9 - Hypothyroidism, unspecified Status: Acute Assessment and Plan: Continue levothyroxine (6) DVT prophylaxis: Code(s): Z29.9 - Encounter for prophylactic measures, unspecified Status: Acute Assessment and Plan: Continue Lovenox (7) UTI (urinary tract infection): Code(s): N39.0 - Urinary tract infection, site not specified Status: Acute Assessment and Plan: UA shows UTI, -urine cultures growing group B strep from 03/24 -status post 7 days of Levaquin, patient is allergic to penicillins and cephalexin (8) Dietary counseling and surveillance: Code(s): Z71.3 - Dietary counseling and surveillance Status: Acute Assessment and Plan: Patient is tolerating tube feeds Continue MiraLax Stress ulcer prophylaxis: Protonix (9) Vulvovaginitis due to Inge: Code(s): B37.3 - Candidiasis of vulva and vagina Status: Acute Assessment and Plan: Patient started on Diflucan Additional Plan Code status: Full code Critical care time spent: 36 minutes 04/04 I spoke to patient's Juno and daughter Erika by phone. I updated them with patient's current status including severe respiratory failure that has been not shown any improvement over last 2 weeks, her inability to tolerate supine position, our current treatment plan and answered all their questions. I discussed options of comfort care and DNR. They told me that they are not ready to 'give up' at this point. Patient's daughter asked me for experimental treatment like 3% saline and Viagra which I explained that cannot be done outside of a clinical trial setting. 04/05 patient's family did a FaceTime call with the help of nurse last night and later after discussing among them
[2021-04-05] MEDS: MORPHINE SULFATE INJ (*CRX) 10 MG/ML AMP 5 MG IV PUSH (16:15)
[2021-04-05] MEDS: LORazepam INJ (*CRX) 2 MG/ML VIAL IV PUSH (16:15)
--- NOTE | 2021-04-05 19:11 | PM.DDS ---
Discharge Summary Date and Time Date of : 04/05/21 Time of : 16:43 Provider Pronounced By: Jeremi Sofia Probable Cause of Probable Cause of : Sepsis Acute respiratory failure secondary to COVID-19 pneumonia Summary Hospital Course: Please refer to admission H&P. Briefly this is a 65-year-old lady unvaccinated who was admitted for COVID-19 pneumonia. She received standard treatment remdesivir, steroid. Her respiratory status declined on the daily basis since admission requiring oxygen, than Airvo, then BiPAP for several days. Unfortunately she was intubated on March 22, 2021 and a became septic. (1) Acute hypoxemic respiratory failure due to COVID-19: Code(s): U07.1 - COVID-19; J96.01 - Acute respiratory failure with hypoxia Status: Acute Assessment and Plan: Acute hypoxic respiratory failure likely related to COVID pneumonia, -intubated on 03/22/2021 -continue low tidal volume strategy, -chest x-ray pending - Currently on a PEEP of 14 and 90% FiO2 -patient has been in prone position for last 3 days and has not tolerated supine position due to quick desaturation and decompensation -continue to prone for now - continue bronchodilators and Pulmicort -sedated with fentanyl, Versed, propofol infusion -patient has been off Nimbex infusion since 03/27 but may need to resume if there is a patient ventilator asynchrony, -blood pressures have been stable, will continue to diurese patient. -Dr. Lewis has spoken with the patient spouse Juno and daughter Erika and provided a status update. They decided to withdraw care and the patient was extubated at 4:41 p.m.. She quickly after that at 16:43. (2) Pneumonia due to 2019 novel coronavirus: Code(s): U07.1 - COVID-19; J12.82 - Pneumonia due to coronavirus disease 2019 Status: Acute Assessment and Plan: Patient presented on 03/16 with shortness of breath, COVID positive, nausea, weakness and decreased appetite. Patient is unvaccinated dexamethasone completed today on 03/25 -status post 10 days Remdesivir -received tocilizumab on 03/16/2021 -continue airborne, droplet and contact isolation/precautions -CRP is increasing (3) Fever: Code(s): R50.9 - Fever, unspecified Status: Acute Assessment and Plan: Febrile but Normal WBC /6 Lemon change Repeat blood cultures and sputum culture sent 03/30 blood culture is growing out Enterococcus faecalis Repeat urine culture pending Normal lipase Patient was started on vancomycin and aztreonam on 04/04 for positive blood culture (4) Type 2 diabetes mellitus without complication, without long-term current use of insulin: Code(s): E11.9 - Type 2 diabetes mellitus without complications Status: Acute Assessment and Plan: Continue Accu-Cheks and sliding scale insulin -continue Lantus (5) Hypothyroidism: Qualifiers: Hypothyroidism type: unspecified Qualified Code(s): E03.9 - Hypothyroidism, unspecified Code(s): E03.9 - Hypothyroidism, unspecified Status: Acute Assessment and Plan: Continue levothyroxine (6) DVT prophylaxis: Code(s): Z29.9 - Encounter for prophylactic measures, unspecified Status: Acute Assessment and Plan: Continue Lovenox (7) UTI (urinary tract infection): Code(s): N39.0 - Urinary tract infection, site not specified Status: Acute Assessment and Plan: UA shows UTI, -urine cultures growing group B strep from 03/24 -status post 7 days of Levaquin, patient is allergic to penicillins and cephalexin (8) Dietary counseling and surveillance: Code(s): Z71.3 - Dietary counseling and surveillance Status: Acute Assessment and Plan: Patient is tolerating tube feeds Continue MiraLax Stress ulcer prophylaxis: Protonix (9) Vulvovaginitis due to Inge: Code(s): B37.3 - Candidiasis of vulva and vagina Status: Acute Assessment and Plan: Patient
== END 2021-04-05 16:43 | disposition expired | DRG 207 ==
LOC: ANHED 16:07 → ANHIMU 03-17 09:29 → ANH3MEDSUR 04-08 10:46 → ANHICU 04-08 10:46 → ANHIMU 04-08 10:46
PROVIDERS: Internal Medicine; Internal Medicine Pulmonary Disease; Nurse Practitioner; Admitting Provider Hospitalist; Emergency Provider Emergency Medicine; PCP Family Medicine; Visit Provider Internal Medicine
DX: U07.1 COVID-19 (principal); J12.82 Pneumonia due to coronavirus disease 2019; J96.01 Acute respiratory failure with hypoxia; Z68.42 Body mass index [BMI] 45.0-49.9, adult; N39.0 Urinary tract infection, site not specified; N17.9 Acute kidney failure, unspecified; Z66 Do not resuscitate; Z51.5 Encounter for palliative care; R11.0 Nausea; R53.1 Weakness; E11.9 Type 2 diabetes mellitus without complications; M19.90 Unspecified osteoarthritis, unspecified site; Z79.82 Long term (current) use of aspirin; M79.7 Fibromyalgia; E03.9 Hypothyroidism, unspecified; E78.2 Mixed hyperlipidemia; Z86.73 Personal history of transient ischemic attack (TIA), and cerebral infarction without residual deficits; E55.9 Vitamin D deficiency, unspecified; M47.814 Spondylosis without myelopathy or radiculopathy, thoracic region; M47.812 Spondylosis without myelopathy or radiculopathy, cervical region; Z87.891 Personal history of nicotine dependence; F41.9 Anxiety disorder, unspecified; I95.9 Hypotension, unspecified; R10.13 Epigastric pain; E66.01 Morbid (severe) obesity due to excess calories; B95.1 Streptococcus, group B, as the cause of diseases classified elsewhere
CPT/HCPCS: 31500; 36415; 36430; 36600; 71045; 71275; 76775; 80048; 80053; 81001; 82375; 82436; 82550; 82565; 82570; 82728; 82805; 82948; 83036; 83050; 83605; 83615; 83690; 83735; 83880; 84100; 84133; 84300; 84439; 84443; 84460; 84478; 84480; 85025; 85027; 85055; 85380; 85610; 85999; 86140; 86900; 86901; 87040; 87070; 87077; 87086; 87088; 87147; 87181; 87186; 87205; 87426; 87804; 93005; 94002; 94003; 94640; 94660; 96374; 99285; A9270; C1751; C9113; C9803; J0131; J1100; J1650; J1815; J1940; J1956; J2060; J2250; J2270; J2405; J2704; J3010; J3370; J3480; J7050; J7120; J8540; P9059; Q0249; Q9967